=== PATIENT | female | born 1935 | race Caucasian/White ===

== ENCOUNTER 2020-05-13 11:29 | Emergency (ER) | payer MEDICARE, SELFPAY ==
--- NOTE | 2020-05-13 | CT_ITS ---
EXAMINATION: CT HEAD WITHOUT CONTRAST CLINICAL INFORMATION: Dizziness. COMPARISON: None TECHNIQUE: Contiguous axial imaging was performed from the skull base to vertex without intravenous administration of contrast. This CT examination was performed using dose optimization techniques as appropriate, variously including the following: *Automated exposure control *Adjustment of mA and/or kV according to patient size (this includes techniques or standardized protocols for targeted exams where dose is matched to indication/reason for exam; i.e. extremities or head) *Use of iterative reconstruction technique DLP: 538.26 mGy-cm FINDINGS: There is no evidence of acute intracranial hemorrhage or territorial infarction. No abnormal mass effect or midline shift is seen. Cardenas to white matter differentiation is well preserved. No extra-axial fluid collections are identified. The ventricles are normal in size. There is no abnormal attenuation within the brain parenchyma. The osseous structures and soft tissues are normal. The mastoid air cells and visualized portions of the paranasal sinuses are well aerated. IMPRESSION: No acute intracranial pathology.
--- NOTE | 2020-05-13 | ECG_ITS ---
Test Reason : WEAKNESS Blood Pressure : / mmHG Vent. Rate : 094 BPM Atrial Rate : 094 BPM P-R Int : 156 ms QRS Dur : 156 ms QT Int : 426 ms P-R-T Axes : 051 -87 077 degrees QTc Int : 532 ms Atrial-sensed ventricular-paced rhythm Abnormal ECG When compared with ECG of 25-FEB-2020 18:45, Electronic ventricular pacemaker has replaced Sinus rhythm Vent. rate has increased BY 55 BPM Referred By: Danni Perez Electronically Signed By:CRISTELA CHANCE
[2020-05-13 11:48] VITALS: BP 180/102; PULSE 84; RESP 16; TEMP 36.5; BMI 22.4
[2020-05-13 12:19] VITALS: BP 161/82
[2020-05-13 12:51] LABS: Basophils Percent Auto 0.4 % (0-2); Hemoglobin 12.6 g/dl (12.0-16.0); MANUAL DIFF FLAG SCAN; PLT CLUMP 1; SCAN SMEAR FLAG 1
[2020-05-13 12:53] LABS: Eosinophils Absolute Auto 0.1 X10*3/uL (0.0-0.4); Eosinophils Percent Auto 1.3 % (0-4); Imm Gran Abs Auto 0.03 X10*3/uL (0.00-0.03); Imm Gran Pct Auto 0.4 % (0.0-0.4); Lymphocytes Absolute Auto 1.4 X10*3/uL (1.2-4.9); Lymphocytes Percent Auto 18.8 % (20-40); Mean Corpuscular HGB Conc 33.2 g/dl (31.0-35.0); Mean Corpuscular Hemoglobin 28.1 pg (27.0-33.0); Mean Corpuscular Volume 84.8 fL (80-98); Monocytes Absolute Auto 0.4 X10*3/uL (0.1-1.2); Monocytes Percent Auto 5.4 % (2-11); Neutrophils Absolute Auto 5.6 X10*3/uL (2.0-8.3); Neutrophils Percent Auto 73.7 % (45-73); Red Blood Count 4.48 X10*6/uL (4.20-5.50); Red Cell Distribution Width 13.6 % (11.0-16.0)
--- NOTE | 2020-05-13 13:11 | ED.GENADULT ---
HPI - General Adult General Chief complaint: Dizziness Stated complaint: high blood pressure Time Seen by Provider: 05/13/20 12:18 Source: patient Mode of arrival: ambulatory Limitations: no limitations History of Present Illness HPI narrative: 85 y/o female presenting with asymptomatic high blood pressure. She states she recently had a PPM placed here in February. She has had her high BP managed on one medication - it has been changed 2 times since February. She was previously on Norvasc 10 mg however this was stopped due to LE edema. She was then changed to Metoprolol 50 mg however this was changed to Lisinopril 10 mg on 05/02 due to to inadequate control. Patient has been checking and recording her BP BID and brought all of her records with her. Her BP today was 190/100, yestrerday 160's and it appearst that her baseline is 140s/90's. She denies any symptoms of high BP at all including dizziness, chest pain, headache, vision changes, LE edema. Onset (ago): day(s) (1) Severity: moderate Severity scale (1-10): 5 Pain Consistency: intermittent Relieving factors: none Exacerbating factors: none Associated symptoms: denies other symptoms Treatments prior to arrival: none Related Data Home Medications Medication Instructions Recorded Confirmed lisinopril PO 05/13/20 Allergies Allergy/AdvReac Type Severity Reaction Status Date / Time No Known Allergies Allergy Unverified 04/26/20 14:54 [No Known Allergies*] Review of Systems Review of Systems: Constitutional: No Fever, No Chills ENT/Mouth: No sore throat, No Rhinorrhea, No Swallowing Difficulty Eyes: No Eye Pain, No Swelling, No Redness Cardiovascular: No Chest Pain, no SOB, No Orthopnea, no Edema Respiratory: No Cough, No Sputum, No Wheezing Gastrointestinal: No Nausea, No Vomiting, No Diarrhea, No abdominal Pain, No Hematochezia, No Melena Genitourinary: No Dysuria, No Urinary Frequency, No Hematuria Musculoskeletal: No joint pain, No Myalgias Skin: No Skin Lesions, No rash Neuro: No Weakness, No Numbness, No Dizziness, No Headache Psych: No Anxiety/Panic, No Depression Heme/Lymph: No Bruising, No Lymphadenopathy Endocrine: No Polyuria, No Polydipsia All other 10 point ROS are negative. [facility] Past Medical History Attestation statement: The following information was validated with the patient. Medical History H/O cardiac pacemaker Hypertension Social History Social History Advance Directives: No Advance Directives Information Provided: No Physical Exam Vital Signs and I&O and Narrative: Vital Signs and I&O: Vital Signs Temp 97.7 F 05/13/20 11:48 Pulse 65 05/13/20 13:25 Resp 18 05/13/20 13:25 BP 180/87 H 05/13/20 13:25 Pulse Ox 99 05/13/20 13:25 Intake & Output 05/12/20 05/13/20 05/13/20 18:59 06:59 18:59 Weight 52 kg Body Mass Index 22.4 Appearance: Alert. Oriented X3. No acute distress. Eyes: Pupils equal, round and reactive to light. ENT: Pharynx normal. Neck: Normal inspection. Neck supple. CVS: Normal heart rate and rhythm. Pulses normal. Respiratory: No respiratory distress. Breath sounds normal. Abdomen: Soft and nontender. +BS x4 Skin: Skin warm and dry. Normal skin color. Normal skin turgor. No rashes. Extremities: No lower extremity edema. Neuro: Oriented X 3. No motor deficit. No sensory deficit. Course Course Hospital Course: BP on arrival 180/102 - she is asymptomatic and has no complaints. She took her Lisinopril this morning. Will monitor BP for a few more readings while in the ED to see if she will require additional Lisinopril to optimize her BP. This can be managed by her PCP given she is asymptomatic. Basic labs pending. Reevaluation(s) Reevaluation #1: Lab workup unremarkable. Continues to be asymptomatic. BP improved to the 160's without intervention. Will hold off on increasing lisinopril for now. Instructed to follow up with PCP tomorrow. She agrees with plan. Time: 14:34 Medical Decision Making MDM Narrative Medical decision making narrative: Ddx HTN emergency, HTN urgency, malignant HTN, essential HTN, cuff error Lab Data Result diagrams: 05/13/20 12:37 05/13/20 12:37 Labs: Lab Results 05/13/20 05/13/20 05/13/20 Range/Units 12:37 12:37 12:37 WBC 7.7 (4.8-10.8) X10*3/uL RBC 4.48 (4.20-5.50) X10*6/uL Hgb 12.6 (12.0-16.0) g/dl Hct 38.0 (37-47) % MCV 84.8 (80-98) fL MCH 28.1 (27.0-33.0) pg MCHC 33.2 (31.0-35.0) g/dl RDW 13.6 (11.0-16.0) % Plt Count 47 L (160-400) X10*3/uL Immature Gran % (Auto) 0.4 (0.0-0.4) % Neut % (Auto) 73.7 H (45-73) % Lymph % (Auto) 18.8 L (20-40) % [place] % (Auto) 5.4 (2-11) % Eos % (Auto) 1.3 (0-4) % Baso % (Auto) 0.4 (0-2) % Neut # (Auto) 5.6 (2.0-8.3) X10*3/uL Lymph # (Auto) 1.4 (1.2-4.9) X10*3/uL [place] # (Auto) 0.4 (0.1-1.2) X10*3/uL Eos # (Auto) 0.1 (0.0-0.4) X10*3/uL Baso # (Auto) 0.0 (0.0-0.2) X10*3/uL Abs Immat Gran (auto) 0.03 (0.00-0.03) X10*3/uL Absolute Nucleated RBC 0.000 (0.0-0.012) X10*3/uL Nucleated RBC % (auto) 0.0 (0.0-0.2) /100WBC Smear Tech's Comments VERIFIED PT (10.8-13.0) SEC INR (0.9-1.1) APTT (24.1-38.0) SEC Sodium 142 (135-145) mmol/L Potassium 4.3 (3.3-5.1) mmol/l Chloride 106 (96-108) mmol/L Carbon Dioxide 24 (22-29) mmol/L Anion Gap 16 (12-20) BUN 21 H (9-16) mg/dL Creatinine 0.85 (0.5-1.4) mg/dL Estim Creat Clear Calc 36.0 Estimated GFR > 60 Random Glucose 98 (60-115) mg/dL Calcium 10.2 (8.4-10.2) mg/dL Total Bilirubin 0.4 (0.0-1.0) mg/dL AST 26 (5-31) U/L ALT 13 (0-31) U/L Alkaline Phosphatase 103 (39-117) U/L Troponin I High Sens 8.3 (<3.5-17.0) ng/L Total Protein 7.8 (6.5-8.0) g/dL Albumin 4.6 (3.5-5.0) g/dL 05/13/20 Range/Units 13:25 WBC (4.8-10.8) X10*3/uL RBC (4.20-5.50) X10*6/uL Hgb (12.0-16.0) g/dl Hct (37-47) % MCV (80-98) fL MCH (27.0-33.0) pg MCHC (31.0-35.0) g/dl RDW (11.0-16.0) % Plt Count (160-400) X10*3/uL Immature Gran % (Auto) (0.0-0.4) % Neut % (Auto) (45-73) % Lymph % (Auto) (20-40) % [place] % (Auto) (2-11) % Eos % (Auto) (0-4) % Baso % (Auto) (0-2) % Neut # (Auto) (2.0-8.3) X10*3/uL Lymph # (Auto) (1.2-4.9) X10*3/uL [place] # (Auto) (0.1-1.2) X10*3/uL Eos # (Auto) (0.0-0.4) X10*3/uL Baso # (Auto) (0.0-0.2) X10*3/uL Abs Immat Gran (auto) (0.00-0.03) X10*3/uL Absolute Nucleated RBC (0.0-0.012) X10*3/uL Nucleated RBC % (auto) (0.0-0.2) /100WBC Smear Tech's Comments PT 11.8 (10.8-13.0) SEC INR 1.0 (0.9-1.1) APTT 32.5 (24.1-38.0) SEC Sodium (135-145) mmol/L Potassium (3.3-5.1) mmol/l Chloride (96-108) mmol/L Carbon Dioxide (22-29) mmol/L Anion Gap (12-20) BUN (9-16) mg/dL Creatinine (0.5-1.4) mg/dL Estim Creat Clear Calc Estimated GFR Random Glucose (60-115) mg/dL Calcium (8.4-10.2) mg/dL Total Bilirubin (0.0-1.0) mg/dL AST (5-31) U/L ALT (0-31) U/L Alkaline Phosphatase (39-117) U/L Troponin I High Sens (<3.5-17.0) ng/L Total Protein (6.5-8.0) g/dL Albumin (3.5-5.0) g/dL ECG Data Attestation: I personally reviewed and interpreted this ECG as follows: Interpretation: ventricular paced rhythm, HR 94 bpm, normal CO internal Pacemaker function: normal pacer function Critical Care Time Critical Care Time Critical Care Time: No Discharge Plan Discharge Clinical Impression: Poorly-controlled hypertension Patient Disposition: Home, Self-Care Instructions: Hypertension in the Older Adult (ED) Additional Instructions: Follow up with your Primary Care doctor tomorrow. Monitor your blood pressure at similar time each day. Continue to take your Lisinopril 10 mg daily, your doctor can decide if they would like to increase it or now. Because you have no concerning symptoms, there is no urgency in increasing the dose today. Prescriptions: No Action lisinopril 10 mg tablet PO RF: 0
[2020-05-13 13:16] LABS: Troponin-I High Sensitivity 8.3 ng/L (<3.5-17.0)
[2020-05-13 13:18] LABS: White Blood Count 7.7 X10*3/uL (4.8-10.8)
[2020-05-13 13:21] LABS: Alanine Aminotransferase 13 U/L (0-31); Albumin Level 4.6 g/dL (3.5-5.0); Alkaline Phosphatase 103 U/L (39-117); Anion Gap 16 (12-20); Aspartate Amino Transferase 26 U/L (5-31); Bilirubin Total 0.4 mg/dL (0.0-1.0); Blood Urea Nitrogen 21 mg/dL (9-16); Calcium 10.2 mg/dL (8.4-10.2); Carbon Dioxide 24 mmol/L (22-29); Chloride 106 mmol/L (96-108); Estimated Glomerular Filt Rate > 60; Glucose Random 98 mg/dL (60-115); Potassium 4.3 mmol/l (3.3-5.1); Sodium 142 mmol/L (135-145); Total Protein 7.8 g/dL (6.5-8.0)
[2020-05-13 13:22] LABS: Platelet Count 47 X10*3/uL (160-400)
[2020-05-13 13:23] LABS: SLIDE REVIEW VERIFIED
[2020-05-13 13:25] VITALS: BP 180/87; PULSE 65; RESP 18; O2SAT 99
[2020-05-13 13:38] LABS: Prothrombin Time 11.8 SEC (10.8-13.0)
[2020-05-13 13:41] LABS: Partial Thromboplastin Time 32.5 SEC (24.1-38.0)
[2020-05-13 14:00] VITALS: BP 163/83
[2020-05-13 14:36] VITALS: BP 161/79
--- NOTE | 2020-05-22 14:07 | PC.NURSE ---
Addendum entered by Rahul Das 06/01/20 10:32: ANTIBIOTIC WAS SCANNED INTO SYSTEM BUT WERE NOT STARTED UNTIL SECOND BLOOD CULTURE WAS DRAWN AND SENT TO LAB. BLOOD CULTURES DRAWN AT 0941 AND 0958. ANTIBIOTIC STARTED AT 1000. Original Note: ANTIBIOTIC WAS SCANNED INTO SYSTEM BUT WERE NOT STARTED UNTIL SECOND BLOOD CULTURE WAS DRAWN AND SENT TO LAB.
== END 2020-05-13 14:44 | disposition home or self-care (01) ==
PROVIDERS: Physician Assistant; Emergency Provider Emergency Medicine; PCP Family Medicine
DX: I10 Essential (primary) hypertension (principal); Z95.0 Presence of cardiac pacemaker; Z79.899 Other long term (current) drug therapy
CPT/HCPCS: 36415; 70450; 80053; 84484; 85025; 85610; 85730; 93005; 93010; 99284

== ENCOUNTER 2020-05-22 07:11 | Inpatient (IN) | payer MEDICARE, SELFPAY ==
[2020-05-22] VITALS (8 sets, daily range): BP systolic 133–151; BP diastolic 69–91; PULSE 69–110; RESP 18–26; TEMP 36.2–37.3; O2SAT 96–97; BMI 21.5
--- NOTE | 2020-05-22 | NM_ITS ---
EXAMINATION: NUCLEAR MEDICINE TAGGED RED BLOOD CELL STUDY CLINICAL INFORMATION: Active GI bleeding COMPARISON: CT dated 05/22/2020 TECHNIQUE: Images obtained for 60 minutes dynamic over the abdomen pelvis after the administration of 25 mCi technetium 99m labeled red blood cells. FINDINGS: Exam is showing accumulation of the radiotracer in the central pelvis. This appears to have a C shape. Based on the oblique imaging this may well be a posterior structure and therefore this may well correlate to the patient's mid sigmoid. There is a differential here with bladder accumulation however given the appearance on the study findings would suggest a bowel bleed. IMPRESSION: Findings suggest GI bleed in the pelvis. When correlating with the anatomical CT study this may well be in the mid sigmoid region. This critical result was discussed with Dr Butler at 7:57 PM on 05/22/2020 and it was ascertained that the content and urgency of the report was understood at the time of direct communication.
--- NOTE | 2020-05-22 07:19 | ED.GIBLEED ---
HPI - GI Bleed General Chief complaint: GI Bleed Stated complaint: BRIGHT RED BLOOD IN STOOL SINCE LAST NIGHT Time Seen by Provider: 05/22/20 07:19 Source: patient and EMS Mode of arrival: EMS Limitations: no limitations History of Present Illness HPI Narrative: no ASA, no AC therapy, no NSAIDs, brb in toilet but also just coming out in her pants per her, states she slept through it but noted it occured again today, 1 prior episode and had a colonoscopy at [facility] but cannot remember the results MD complaint: gross hematemesis Onset (ago): day(s) (started last night at 7pm) Pain Consistency: intermittent Severity: moderate Relieving factors: none Exacerbating factors: none Context: history of GI bleed Associated symptoms: abdominal pain and nausea Treatments Prior to Arrival: none Related Data Home Medications Medication Instructions Recorded Confirmed lisinopril 10 mg PO DAILY 05/13/20 05/22/20 metoprolol tartrate 50 mg PO BEDTIME 05/22/20 05/22/20 Allergies Allergy/AdvReac Type Severity Reaction Status Date / Time No Known Allergies Allergy Unverified 04/26/20 14:54 [No Known Allergies*] Review of Systems Review of Systems: Constitutional : No Weight loss, No Fever, No Chills ENT/Mouth : No sore throat, No Rhinorrhea Eyes: No Swelling, No Redness Cardiovascular : No Chest Pain, No SOB, NoEdema Respiratory : No Cough, No Sputum, No Wheezing Gastrointestinal : Positive Nausea, no Vomiting, no Diarrhea, positive abdominal Pain, positive Hematochezia, No Melena Genitourinary : No Dysuria, No Urinary Frequency, No Hematuria, No Urgency Musculoskeletal : No joint pain, No Myalgias, No Joint Swelling Skin : No Skin Lesions, No rash Neuro : No Weakness, No Numbness, No Dizziness, No Headache Psych : No Anxiety/Panic, No Depression All other systems reviewed and are negative. [facility] Past Medical History Medical History H/O cardiac pacemaker Hypertension Social History Social History (Updated 05/22/20 @ 07:36 by Rea Orellana DO) Alcohol intake: never Smoking Status: Never smoker Use of substances other than those prescribed or required for medical reasons: No Advance Directives: Yes Advance Directives Information Provided: Yes Advance Directives on File: No Physical Exam Vital Signs: Vital Signs: Vital Signs Temp Pulse Resp BP Pulse Ox 05/22/20 07:18 99.1 F 107 H 20 149/91 H 97 Body Mass Index 21.5 Appearance: Alert. Oriented X3. No acute distress. Eyes: Pupils equal, round and reactive to light. ENT: Pharynx normal. Neck: Normal inspection. Neck supple. CVS: tachycardic heart rate and rhythm. Pulses normal. Respiratory: No respiratory distress. Breath sounds normal. Abdomen: Soft and mild ttp in LLQ Rectal: brb via rectum no clots Skin: Skin warm and dry. Normal skin color. Normal skin turgor. Extremities: No lower extremity edema. No calf ttp Neuro: Oriented X 3. No motor deficit. No sensory deficit. Course Course Course Narrative: 2013 colonoscopy internal hemorrhoids diverticulosis and ischemic colitis which was source of her bleeding per reports Reevaluation(s) Reevaluation #1: will add on zosyn for empiric antibiotics given history of ischemic colitis Time: 08:25 Reevaluation #2: VS stable, H/H stble no further bleeding, + colitis, Dr. Fuad lu, hospitalist to admit Time: 09:59 MDM - GI Bleed MDM Narrative Medical decision making narrative: 85 yo female no AC therapy, no ASA here with brbpr since 7pm has had 4 to 5 bouts has some mild LLQ pain as well reports 1 episode in the past as well but cannot remember what they found, today will obtain labs, place 2 18G IVs in, type and screen, EKG, CT scan with GIB protocol, patient consented for blood transfusion, dispo per results and findings Lab Data Result diagrams: 05/22/20 07:44 05/22/20 07:44 Labs: Lab Results 05/22/20 05/22/20 05/22/20 Range/Units 07:44 07:44 07:44 WBC (4.8-10.8) X10*3/uL RBC (4.20-5.50) X10*6/uL Hgb (12.0-16.0) g/dl Hct (37-47) % MCV (80-98) fL MCH (27.0-33.0) pg MCHC (31.0-35.0) g/dl RDW (11.0-16.0) % Plt Count (160-400) X10*3/uL MPV (9.4-12.3) fL Immature Gran % (Auto) (0.0-0.4) % Neut % (Auto) (45-73) % Lymph % (Auto) (20-40) % Mobile % (Auto) (2-11) % Eos % (Auto) (0-4) % Baso % (Auto) (0-2) % Lymph # (Auto) (1.2-4.9) X10*3/uL Mobile # (Auto) (0.1-1.2) X10*3/uL Eos # (Auto) (0.0-0.4) X10*3/uL Baso # (Auto) (0.0-0.2) X10*3/uL Abs Immat Gran (auto) (0.00-0.03) X10*3/uL Absolute Neuts (auto) (2.0-8.3) X10*3/uL Absolute Nucleated RBC (0.0-0.012) X10*3/uL Nucleated RBC % (auto) (0.0-0.2) /100WBC Smear Tech's Comments PT 12.6 (10.8-13.0) SEC INR 1.1 (0.9-1.1) APTT 26.7 (24.1-38.0) SEC Sodium (135-145) mmol/L Potassium (3.3-5.1) mmol/l Chloride (96-108) mmol/L Carbon Dioxide (22-29) mmol/L Anion Gap (12-20) BUN (9-16) mg/dL Creatinine (0.5-1.4) mg/dL Estim Creat Clear Calc Estimated GFR Random Glucose (60-115) mg/dL Lactic Acid (0.5-2.0) mmol/L Calcium (8.4-10.2) mg/dL Magnesium 1.8 (1.6-2.6) mg/dL Total Bilirubin 0.8 (0.0-1.0) mg/dL Direct Bilirubin 0.2 (0.0-0.5) mg/dL AST 24 (5-31) U/L ALT 15 (0-31) U/L Alkaline Phosphatase 99 (39-117) U/L Troponin I High Sens 13.7 D (<3.5-17.0) ng/L Total Protein 7.0 (6.5-8.0) g/dL Albumin 4.2 (3.5-5.0) g/dL Lipase 6 L (8-78) U/L Stool Occult Blood (NEG) Blood Type Antibody Screen 05/22/20 05/22/20 05/22/20 Range/Units 07:44 07:44 07:44 WBC 18.7 H (4.8-10.8) X10*3/uL RBC 4.46 (4.20-5.50) X10*6/uL Hgb 12.7 (12.0-16.0) g/dl Hct 38.3 (37-47) % MCV 85.9 (80-98) fL MCH 28.5 (27.0-33.0) pg MCHC 33.2 (31.0-35.0) g/dl RDW 13.9 (11.0-16.0) % Plt Count 57 L (160-400) X10*3/uL MPV 12.0 (9.4-12.3) fL Immature Gran % (Auto) 0.4 (0.0-0.4) % Neut % (Auto) 91.8 H (45-73) % Lymph % (Auto) 3.7 L (20-40) % Mobile % (Auto) 3.9 (2-11) % Eos % (Auto) 0.0 (0-4) % Baso % (Auto) 0.2 (0-2) % Lymph # (Auto) 0.7 L (1.2-4.9) X10*3/uL Mobile # (Auto) 0.7 (0.1-1.2) X10*3/uL Eos # (Auto) 0.0 (0.0-0.4) X10*3/uL Baso # (Auto) 0.0 (0.0-0.2) X10*3/uL Abs Immat Gran (auto) 0.08 H (0.00-0.03) X10*3/uL Absolute Neuts (auto) 17.1 H (2.0-8.3) X10*3/uL Absolute Nucleated RBC 0.000 (0.0-0.012) X10*3/uL Nucleated RBC % (auto) 0.0 (0.0-0.2) /100WBC Smear Tech's Comments VERIFIED PT (10.8-13.0) SEC INR (0.9-1.1) APTT (24.1-38.0) SEC Sodium 141 (135-145) mmol/L Potassium 4.1 (3.3-5.1) mmol/l Chloride 108 (96-108) mmol/L Carbon Dioxide 23 (22-29) mmol/L Anion Gap 14 (12-20) BUN 24 H (9-16) mg/dL Creatinine 0.95 (0.5-1.4) mg/dL Estim Creat Clear Calc 32.2 Estimated GFR 56 Random Glucose 156 H D (60-115) mg/dL Lactic Acid (0.5-2.0) mmol/L Calcium 9.6 (8.4-10.2) mg/dL Magnesium (1.6-2.6) mg/dL Total Bilirubin (0.0-1.0) mg/dL Direct Bilirubin (0.0-0.5) mg/dL AST (5-31) U/L ALT (0-31) U/L Alkaline Phosphatase (39-117) U/L Troponin I High Sens (<3.5-17.0) ng/L Total Protein (6.5-8.0) g/dL Albumin (3.5-5.0) g/dL Lipase (8-78) U/L Stool Occult Blood POS (NEG) Blood Type Antibody Screen 05/22/20 05/22/20 05/22/20 Range/Units 08:14 08:14 09:20 WBC (4.8-10.8) X10*3/uL RBC (4.20-5.50) X10*6/uL Hgb (12.0-16.0) g/dl Hct (37-47) % MCV (80-98) fL MCH (27.0-33.0) pg MCHC (31.0-35.0) g/dl RDW (11.0-16.0) % Plt Count (160-400) X10*3/uL MPV (9.4-12.3) fL Immature Gran % (Auto) (0.0-0.4) % Neut % (Auto) (45-73) % Lymph % (Auto) (20-40) % Mobile % (Auto) (2-11) % Eos % (Auto) (0-4) % Baso % (Auto) (0-2) % Lymph # (Auto) (1.2-4.9) X10*3/uL Mobile # (Auto) (0.1-1.2) X10*3/uL Eos # (Auto) (0.0-0.4) X10*3/uL Baso # (Auto) (0.0-0.2) X10*3/uL Abs Immat Gran (auto) (0.00-0.03) X10*3/uL Absolute Neuts (auto) (2.0-8.3) X10*3/uL Absolute Nucleated RBC (0.0-0.012) X10*3/uL Nucleated RBC % (auto) (0.0-0.2) /100WBC Smear Tech's Comments PT (10.8-13.0) SEC INR (0.9-1.1) APTT (24.1-38.0) SEC Sodium (135-145) mmol/L Potassium (3.3-5.1) mmol/l Chloride (96-108) mmol/L Carbon Dioxide (22-29) mmol/L Anion Gap (12-20) BUN (9-16) mg/dL Creatinine (0.5-1.4) mg/dL Estim Creat Clear Calc Estimated GFR Random Glucose (60-115) mg/dL Lactic Acid 2.1 H* (0.5-2.0) mmol/L Calcium (8.4-10.2) mg/dL Magnesium (1.6-2.6) mg/dL Total Bilirubin (0.0-1.0) mg/dL Direct Bilirubin (0.0-0.5) mg/dL AST (5-31) U/L ALT (0-31) U/L Alkaline Phosphatase (39-117) U/L Troponin I High Sens (<3.5-17.0) ng/L Total Protein (6.5-8.0) g/dL Albumin (3.5-5.0) g/dL Lipase (8-78) U/L Stool Occult Blood (NEG) Blood Type Cancelled AB Positive Antibody Screen Cancelled ECG Data Attestation: I personally reviewed and interpreted this ECG as follows: ECG interpretation date: 05/22/20 ECG interpretation time: 07:38 Interpretation: Rate: 108 Rhythm: atrial sensed ventricular paced continuous [place]: left Normal P waves. Normal GARY. wide QRS complex. ST T wave : nonspecific qTC: prolonged prior studies: no acute ischemia The study has been interpreted contemporaneously by me. . Critical Care Time Critical Care Time Critical Care Time: Yes Total Critical Care Time: 30 Attestation: consult, records from [facility] requested, 2 large bore IVs, type and screen I personally attest to this time spent taking care of the patient Discharge Plan Discharge Clinical Impression: Lower gastrointestinal hemorrhage, Colitis Patient Disposition: Admitted As Inpatient
--- NOTE | 2020-05-22 07:24 | CT_ITS ---
EXAMINATION: CT ABDOMEN AND PELVIS WITH CONTRAST CLINICAL INFORMATION: GI bleed COMPARISON: None TECHNIQUE: Multidetector volumetric images were obtained from the superior aspect of the liver through the pubic symphysis following administration 85 mL of Omnipaque 350 intravenous contrast. Sagittal and coronal reformatted images were obtained on the technologist's workstation. Oral contrast: No This CT examination was performed using dose optimization techniques as appropriate, variously including the following: *Automated exposure control *Adjustment of mA and/or kV according to patient size (this includes techniques or standardized protocols for targeted exams where dose is matched to indication/reason for exam; i.e. extremities or head) *Use of iterative reconstruction technique DLP: 665 mGy-cm FINDINGS: LUNG BASES: There is a 5 mm calcified left lower lobe nodule. There is a scarring or subsegmental atelectasis at the lung bases. LIVER, GALLBLADDER, AND BILIARY TREE: The liver is normal in size and shape. There are several small low-attenuation liver lesions probably representing cysts. The largest measures 1.3 cm in the right lobe axial image 19 series 5. The gallbladder is unremarkable. There are no gallstones. There is no biliary duct dilatation. PANCREAS: There is fatty infiltration of the pancreas. There is a 7 mm cyst is a exophytic to the inferior neck of the pancreas axial image 24 series 5. SPLEEN: Unremarkable. ADRENAL GLANDS: Unremarkable. KIDNEYS AND URETERS: There are bilateral renal cortical and peripelvic cysts. The kidneys are otherwise unremarkable. BLADDER: Unremarkable. GASTROINTESTINAL TRACT: There is diverticulosis of the colon. There is wall thickening and edema of the distal transverse, left and sigmoid colon. There is stranding of the adjacent fat. There is mucosal enhancement seen involving the distal transverse colon and the proximal sigmoid colon. No evidence of active bleeding is seen. CT appearance is suggestive of colitis. There are prominent adjacent small vessels/vasa recta. The rectum is not distended and filled with fluid. The appendix is not identified. There is an esophageal hernia. ABDOMINAL WALL: There is an umbilical hernia containing fat. LYMPH NODES: No enlarged lymph nodes are seen. There is no ascites. VASCULAR: There is evidence of atherosclerotic disease. No aneurysm is seen. The SMA and LETY are patent. The SMV and IMV are patent. PELVIC VISCERA: The uterus appears to have been removed. No pelvic mass is seen. OSSEOUS STRUCTURES: There are degenerative changes of the spine. IMPRESSION: Colitis of the distal transverse, left and sigmoid colon. No evidence of active GI bleeding seen. Diverticulosis. Esophageal hernia. Liver and bilateral renal cysts. Probable small cyst and/or exophytic to the inferior neck of the pancreas.
--- NOTE | 2020-05-22 07:25 | ECG_ITS ---
Test Reason : GI BLEED Blood Pressure : / mmHG Vent. Rate : 108 BPM Atrial Rate : 108 BPM P-R Int : 128 ms QRS Dur : 148 ms QT Int : 404 ms P-R-T Axes : 047 268 072 degrees QTc Int : 541 ms Atrial-sensed ventricular-paced rhythm Abnormal ECG When compared with ECG of 13-MAY-2020 12:29, Vent. rate has increased BY 14 BPM Referred By: Rea Orellana Electronically Signed By:PAPO SEVILLA MD
[2020-05-22 07:55] LABS: Basophils Percent Auto 0.2 % (0-2); Hematocrit 38.3 % (37-47); Imm Gran Abs Auto 0.08 X10*3/uL (0.00-0.03); Imm Gran Pct Auto 0.4 % (0.0-0.4); Lymphocytes Absolute Auto 0.7 X10*3/uL (1.2-4.9); Lymphocytes Percent Auto 3.7 % (20-40); MANUAL DIFF FLAG SCAN; Mean Corpuscular HGB Conc 33.2 g/dl (31.0-35.0); Mean Corpuscular Hemoglobin 28.5 pg (27.0-33.0); Mean Corpuscular Volume 85.9 fL (80-98); Monocytes Absolute Auto 0.7 X10*3/uL (0.1-1.2); Monocytes Percent Auto 3.9 % (2-11); Neutrophils Absolute Auto 17.1 X10*3/uL (2.0-8.3); Neutrophils Percent Auto 91.8 % (45-73); Red Blood Count 4.46 X10*6/uL (4.20-5.50); Red Cell Distribution Width 13.9 % (11.0-16.0); SCAN SMEAR FLAG 1; White Blood Count 18.7 X10*3/uL (4.8-10.8)
[2020-05-22 07:57] LABS: OBS Int Ctl Valid YES; OBS1 POS (NEG)
[2020-05-22 08:09] LABS: Hemoglobin 12.7 g/dl (12.0-16.0); Platelet Count 57 X10*3/uL (160-400)
[2020-05-22 08:18] LABS: Anion Gap 14 (12-20); Blood Urea Nitrogen 24 mg/dL (9-16); Calcium 9.6 mg/dL (8.4-10.2); Carbon Dioxide 23 mmol/L (22-29); Chloride 108 mmol/L (96-108); Creatinine Clr Calc Pharmacy 32.2; Estimated Glomerular Filt Rate 56; Glucose Random 156 mg/dL (60-115); Potassium 4.1 mmol/l (3.3-5.1); Sodium 141 mmol/L (135-145)
[2020-05-22 08:20] LABS: SLIDE REVIEW VERIFIED
[2020-05-22 08:22] LABS: Alanine Aminotransferase 15 U/L (0-31); Albumin Level 4.2 g/dL (3.5-5.0); Alkaline Phosphatase 99 U/L (39-117); Aspartate Amino Transferase 24 U/L (5-31); Bilirubin Direct 0.2 mg/dL (0.0-0.5); Bilirubin Total 0.8 mg/dL (0.0-1.0); Lipase 6 U/L (8-78); Magnesium 1.8 mg/dL (1.6-2.6)
[2020-05-22 08:23] LABS: INTERNATIONAL NORM RATIO 1.1 (0.9-1.1); Prothrombin Time 12.6 SEC (10.8-13.0)
[2020-05-22 08:26] LABS: Partial Thromboplastin Time 26.7 SEC (24.1-38.0); Troponin-I High Sensitivity 13.7 ng/L (<3.5-17.0)
[2020-05-22 08:41] LABS: Lactic Acid 2.1 mmol/L (0.5-2.0)
[2020-05-22] MEDS: 0.9 % Sodium Chloride 500 ML 1000 ML IV (08:48)
[2020-05-22] MEDS: ondansetron HCL 4 MG/2 ML VIAL IVPUSH (08:49)
[2020-05-22] MEDS: Piperacillin Sodium/Tazobactam 3.375 GM in 0.9 % Sodium Chloride 50 ML IV ×2 (08:49→20:54)
[2020-05-22] MEDS: iohexoL 350 MG/ML 100 ML INFUS..BTL IV (09:25)
[2020-05-22 10:17] LABS: Reflex Lactate? Lactic Acid Added
--- NOTE | 2020-05-22 12:14 | HP_ITS ---
DATE OF SERVICE: 05/22/2020 CHIEF COMPLAINT: Rectal bleeding. HISTORY OF PRESENT ILLNESS: 85-year-old woman, presenting from home with multiple episodes of bright red blood per rectum. She reported that yesterday evening, she was in her bathroom and she was nauseous and had lower abdominal pain. She laid down on her bathroom floor and tried to wet her face with water. She went to bed, but got up 4 times during the night, having abdominal cramping and episodes of bright red blood. 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 She denied any fever, chills, or vomiting. No recent travel. No recent illness. In the ER, her H and H was noted to be stable at 12.7 and 38.3. White blood cell count 18.7, platelet count 57, which is a drop from February of 2020, when it was 118. Lactic acid was elevated at 2.1, BUN 24. Stool occult was positive. She had an abdominal and pelvic CT, which showed colitis of the distal transverse left and sigmoid colon with no evidence of active GI bleed. She did have an episode of bleeding, bright red blood per rectum while in the ER. She was given a liter of IV fluid, a dose of Zosyn and Zofran while in the ER. She will be admitted for further management and treatment of acute GI bleed. PAST MEDICAL HISTORY: 1. Colitis. 2. Diverticulosis. 3. Esophageal hernia. 4. Liver and renal cysts. 5. Hypertension. PAST SURGICAL HISTORY: 1. Pacemaker placement. 2. Colonoscopy. FAMILY HISTORY: Denies any cardiac disease. SOCIAL HISTORY: Lives alone. Denies any alcohol, tobacco, or illicit drug use. She is fairly independent. ALLERGIES: NO KNOWN ALLERGIES. MEDICATIONS: 1. Lisinopril 10 mg p.o. daily. 2. Metoprolol tartrate 50 mg p.o. at bedtime. REVIEW OF SYSTEMS: CONSTITUTIONAL: Denies recent fever, chills, or decrease in appetite. RESPIRATORY: Denies any shortness of breath, cough, or sputum production. CARDIOVASCULAR: Denies any chest pain, orthopnea, PND, or edema. GASTROINTESTINAL: See HPI. GENITOURINARY: Denies any dysuria, frequency, or hematuria. MUSCULOSKELETAL: Denies any joint pain or swelling. NEUROPSYCH: Denies any weakness or seizures. All other systems are reviewed and are negative. PHYSICAL EXAMINATION: CONSTITUTIONAL: Resting in bed, appearing in no acute distress. VITAL SIGNS: 99.1, 103, 26, 133/87, 97% on room air. SKIN: Intact without rash or open sores. HEENT: Head is normocephalic, atraumatic. Eyes, pupils are PERRLA. Sclerae anicteric. Mouth and throat: Mucous membranes are intact and moist. NECK: Supple. No lymphadenopathy. No JVD noted. CHEST: Clear to auscultation without wheezes, rhonchi, or rales. HEART: Regular rate and rhythm. Clear S1, S2. No murmurs, rubs, or gallops. ABDOMEN: Positive bowel sounds. Mildly tender to the lower abdomen. No hepatomegaly or splenomegaly noted. NEURO: The patient is alert and oriented x3. Cranial nerves II through XII are grossly intact without focal deficits. LABORATORY DATA: WBC is 18.7, hemoglobin 12.7, hematocrit 38.3, platelets 57. Sodium is 141, potassium is 4.1, chloride is 108, bicarb is 23, BUN is 24, creatinine is 0.95. Glucose is 156. Lactic acid is 2.1. Troponin is 13.7. Lipase is 6. ASSESSMENT AND PLAN: 85-year-old woman, who is being admitted with acute GI bleed, possibly related to ischemic versus infectious colitis. 1. Severe sepsis. Leukocytosis, tachycardia, lactic acidosis. Follow blood cultures. 2. Colitis. Ischemic versus infectious. We will continue IV antibiotics, clear liquid diet for now, GI consultation, PPI, follow H and H closely. If significant drop noted, may require blood transfusion. Type and screen already done. 3. Hypertension. Stable blood pressure. We will hold lisinopril due to GI bleeding to avoid hypotension. 4. Deep vein thrombosis prophylaxis with early ambulation, no chemical anticoagulation due to GI bleed. 5. Case discussed with Dr. Pelayo 6. Full code. KOLTON Song MD JR/ARTURO / [id number] KEVIN
--- NOTE | 2020-05-22 14:13 | PM.EVENT ---
Event Note Event Note: I saw and examined the patient and participated in the ziegler portion of the E/M service. I agree with the history and exam as documented by [facility]. Patient presentes with abdominal cramps and gib bleed, H/H seems ok so far. Hemodynamically stable. WBC elevated but no fever. Exam: abdominal exam is bening. Will admit for work up, GI consult, empiric Abx. If continues to have active bleed, we will get a bleeding Scan. Otherwise, I agree with assessment and plan as outlined in the H and P.
[2020-05-22 15:42] LABS: Hematocrit 37.6 % (37-47); Hemoglobin 12.5 g/dl (12.0-16.0)
[2020-05-22 16:09] LABS: ~Lactic Acid-LAB USE ONLY 2.2 mmol/L (0.5-2.0)
[2020-05-22] MEDS: 0.9 % Sodium Chloride 1,000 ML 75 ML IVCONT (17:02)
[2020-05-22] MEDS: 0.9 % Sodium Chloride Flush 3 ML SYRINGE IVFLUSH ×2 (17:02→21:01)
--- NOTE | 2020-05-22 17:20 | CONS_ITS ---
DATE OF SERVICE: 05/22/2020 REFERRING PHYSICIAN: Madina Smith MD REASON FOR CONSULTATION: Colitis and bleeding. HISTORY OF PRESENT ILLNESS: The patient is an 85-year-old woman, who was admitted to the hospital on May 22 after presenting to the emergency room with abdominal pain and bright red blood per rectum. She states she was well until after supper last night when she developed nausea and abdominal pain, she was unsure if she were going to have a bowel movement or vomit and she laid down on the floor. She was able to get to the toilet and had diarrhea, which became bloody. This was associated with abdominal cramping, which was bilateral over both lower quadrants and she had multiple episodes of rectal bleeding with red blood in cramps. She felt hot and cold, did not have a documented fever. She denies any prior history of rectal bleeding. She previously underwent colonoscopy in January of 2008 for colon cancer screening, which showed sigmoid diverticulosis and a tortuous sigmoid, but no colitis or polyps. We reviewed this today. She was evaluated in the emergency department with laboratory studies documenting a hematocrit of 37.6, down slightly from 38. In May of 2020, she was evaluated with CT scanning, which is reviewed. This is interpreted as showing colitis involving the distal transverse and left and sigmoid colon. She was given antibiotics and admitted to the hospital. She denies any recent unusual travel, ill contacts, or food ingestions. PAST MEDICAL HISTORY: 1. Hypertension. 2. Diverticular disease. 3. Pacemaker placement. CURRENT MEDICATIONS: Her current medication list is reviewed in the chart. ALLERGIES: THERE ARE NONE REPORTED. FAMILY HISTORY: This is reviewed with the patient and is noncontributory. SOCIAL HISTORY: There is no current tobacco, alcohol, or substance abuse. REVIEW OF SYSTEMS: SKIN: No pruritus. HEENT: Negative. CARDIOPULMONARY: No shortness of breath or chest pain. GASTROINTESTINAL: As above. GENITOURINARY: Negative. NEUROPSYCHIATRIC: Negative. PHYSICAL EXAMINATION: GENERAL: Reveals a pleasant, well-appearing female, lying in bed. VITAL SIGNS: Reviewed in the electronic medical record and are stable. SKIN: Anicteric. HEENT: Shows no scleral icterus. NECK: Without lymphadenopathy or thyromegaly. LUNGS: Clear. HEART: Regular rate and rhythm. S1, S2. No murmur. ABDOMEN: Soft without focal masses or tenderness. Bowel sounds are present. No organomegaly is noted. EXTREMITIES: Without edema. LABORATORY DATA: Laboratory data and CT scan results are reviewed. IMPRESSION: Colitis. Her presentation appears consistent with an acute colitis, likely ischemic. Based on her CT results, infectious is a possibility and I would recommend obtaining stool specimens to rule out any treatable infectious colitis. I would recommend monitoring her hematocrit and following her clinically. If she does have persistent bleeding, I would consider further evaluation with bleeding scan and/or angiography. At this time, she appears quite stable. This was discussed with the patient and her daughter. Thanks for asking me to see her. I will follow her in the hospital with you. MD TRAVIS Chavarria/ARTURO / [id number]
[2020-05-22 17:27] LABS: Reflex Lactate? 2 Y
[2020-05-22] MEDS: Pantoprazole Sodium 40 MG/10 ML VIAL IVPUSH (20:53)
[2020-05-22] MEDS: Metoprolol Tartrate 50 MG TABLET PO (20:54)
[2020-05-22 21:54] LABS: Hematocrit 32.5 % (37-47); Hemoglobin 10.7 g/dl (12.0-16.0)
[2020-05-22 22:19] LABS: ~Lactic Acid-LAB USE ONLY 4.7 mmol/L (0.5-2.0)
--- NOTE | 2020-05-22 22:49 | MHC.PIE ---
P: H&H dropped 12.7 & 38.3 to 10.7 & 32.5. Also Lactic up to 4.7. 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 I: Dr Denney made aware of updated labs & told about BM's. Dr Denney spoke to GI - plan to transfer out for active bleed.
[2020-05-23] MEDS: Piperacillin Sodium/Tazobactam 3.375 GM in 0.9 % Sodium Chloride 50 ML IV (02:03)
--- NOTE | 2020-05-23 12:07 | P.DS_ITS ---
DS: Providers Provider Date of admission: 05/22/20 10:56 Date of dischar05/23/20 Primary care physician: Zana Gracia MD Consults: 05/22/20 14:06 Consult to Physician Routine Consulting Provider: [facility] [place] [facility] Reason for consultation: GI BLEED Has provider been notified: No 05/22/20 14:43 Consult to Gastroenterology Routine Consulting Provider: Xavier Haider Reason for consultation: gi bleed Has provider been notified: No DS: Diagnosis Discharge Diagnosis (1) Lower gastrointestinal hemorrhage: Status: Acute (2) Colitis: Status: Acute (3) Acute blood loss anemia: Status: Acute DS: Medications Discharge Medications Home Medications: Previous Rx's Medication Instructions Recorded lisinopril 10 mg tablet 10 mg PO DAILY #90 tab 07/16/20 metoprolol tartrate 50 mg tablet 50 mg PO BID #180 tab 07/16/20 DS: Summary Hospital Course Hospital Course: Patient presented with hematochezia and found to have colitis and active bleeding. She underwen tagged RBC scn and was noted to have active bleed and there was no IR patent prosecution paralegal to due embolization and therefore patient was transfered to [facility] for IR embolization. --this was done after hours. This is a late entry note for 05/23/20 Time Spent with Patient Time attestation: Total time spent providing and/or coordinating discharge services: Discharge coordination time: Greater than 30 minutes Physical Exam Vital Signs: Vital Signs: Last Vital Signs Temp 97.9 F 05/22/20 23:14 Pulse 69 05/22/20 23:14 Resp 18 05/22/20 23:14 BP 145/71 H 05/22/20 23:14 Pulse Ox 96 05/22/20 23:14 Body Mass Index 21.5 Defereed DS: Data Data Completed and Pending Labs on day of discharge: 05/22/20 NM GI bleeding Stat 05/22/20 07:24 CT abdomen pelvis w con Stat Consult Rx Perform Med Rec 1 each MISCELLANE ONCE PRN ondansetron HCL [Zofran] 4 mg IVPUSH ONCE ONE 05/22/20 07:25 ECG 12 lead EKG Stat EKG Documentation DIRECTED 05/22/20 07:30 0.9 % Sodium Chloride [Ns] 500 ml IV 1,000 mls/hr 05/22/20 07:44 Basic Metabolic Panel Stat Complete Blood Count Auto Diff Stat Lipase Stat Liver Panel Stat Magnesium Stat OBSX1 Stat Partial Thromboplastin Time Stat Prothrombin Time INR Stat SLIDE REVIEW Stat Troponin-I High Sensitivity Stat 05/22/20 08:14 Lactic Acid Stat 05/22/20 08:21 Piperacillin Sodium/Tazobactam [Zosyn] 3.375 gm 0.9 % Sodium Chloride [Ns] 50 ml IV ONCE 05/22/20 08:44 Piperacillin Sodium/Tazobactam [Zosyn] 3.375 gm IV .STK-MED ONE 05/22/20 09:20 Type and Screen Stat 05/22/20 09:24 iohexoL 350 MG/ML [Omnipaque 350 MG/ML] 100 ml IV ONCE ONE 05/22/20 09:58 Blood Culture X2 [BC] Stat 05/22/20 10:52 Code Status Routine Transfer Order Routine 05/22/20 14:06 0.9 % Sodium Chloride [Ns] 1,000 ml IVCONT 75 mls/hr Acetaminophen [Tylenol] 650 mg PO Q6H PRN ondansetron HCL [Zofran] 4 mg IVPUSH Q8H PRN 05/22/20 14:06 Ambulate QSHIFT WHILE AWAKE Cont. Telemetry w/Vital Sign limit Q4HR IV insert/maintain Q4HR Intake and Output QSHIFTE Pulse Oximetry Q4HR Vital Signs Q4HR 05/22/20 15:16 Hemoglobin and Hematocrit Stat ~Lactic Acid-LAB USE ONLY Stat 05/22/20 16:00 0.9 % Sodium Chloride Flush [NS Flush] 3 ml IVFLUSH QSHIFT Piperacillin Sodium/Tazobactam [Zosyn] 3.375 gm 0.9 % Sodium Chloride [Ns] 50 ml IV Q8H 05/22/20 16:30 Pantoprazole Sodium [Protonix] 40 mg IVPUSH BID@0630,1630 05/22/20 17:38 Heparin Sodium,Porcine 1,000 unit IV .STK-MED ONE 05/22/20 20:21 Piperacillin Sodium/Tazobactam [Zosyn] 3.375 gm IV .STK-MED ONE 05/22/20 21:00 Metoprolol Tartrate [Lopressor] 50 mg PO BEDTIME 05/22/20 21:48 Hemoglobin and Hematocrit Stat ~Lactic Acid-LAB USE ONLY Stat 05/23/20 01:59 Piperacillin Sodium/Tazobactam [Zosyn] 3.375 gm IV .STK-MED ONE 05/23/20 03:00 Piperacillin Sodium/Tazobactam [Zosyn] 3.375 gm 0.9 % Sodium Chloride [Ns] 50 ml IV Q8H Laboratory Last Values WBC 18.7 X10*3/uL (4.8-10.8) H 05/22/20 07:44 RBC 4.46 X10*6/uL (4.20-5.50) 05/22/20 07:44 Hgb 10.7 g/dl (12.0-16.0) L 05/22/20 21:48 Hct 32.5 % (37-47) L 05/22/20 21:48 MCV 85.9 fL (80-98) 05/22/20 07:44 MCH 28.5 pg (27.0-33.0) 05/22/20 07:44 MCHC 33.2 g/dl (31.0-35.0) 05/22/20 07:44 RDW 13.9 % (11.0-16.0) 05/22/20 07:44 Plt Count 57 X10*3/uL (160-400) L 05/22/20 07:44 MPV 12.0 fL (9.4-12.3) 05/22/20 07:44 Immature Gran % (Auto) 0.4 % (0.0-0.4) 05/22/20 07:44 Neut % (Auto) 91.8 % (45-73) H 05/22/20 07:44 Lymph % (Auto) 3.7 % (20-40) L 05/22/20 07:44 [place] % (Auto) 3.9 % (2-11) 05/22/20 07:44 Eos % (Auto) 0.0 % (0-4) 05/22/20 07:44 Baso % (Auto) 0.2 % (0-2) 05/22/20 07:44 Lymph # (Auto) 0.7 X10*3/uL (1.2-4.9) L 05/22/20 07:44 [place] # (Auto) 0.7 X10*3/uL (0.1-1.2) 05/22/20 07:44 Eos # (Auto) 0.0 X10*3/uL (0.0-0.4) 05/22/20 07:44 Baso # (Auto) 0.0 X10*3/uL (0.0-0.2) 05/22/20 07:44 Abs Immat Gran (auto) 0.08 X10*3/uL (0.00-0.03) H 05/22/20 07:44 Absolute Neuts (auto) 17.1 X10*3/uL (2.0-8.3) H 05/22/20 07:44 Absolute Nucleated RBC 0.000 X10*3/uL (0.0-0.012) 05/22/20 07:44 Nucleated RBC % (auto) 0.0 /100WBC (0.0-0.2) 05/22/20 07:44 Smear Tech's Comments VERIFIED 05/22/20 07:44 PT 12.6 SEC (10.8-13.0) 05/22/20 07:44 INR 1.1 (0.9-1.1) 05/22/20 07:44 APTT 26.7 SEC (24.1-38.0) 05/22/20 07:44 Sodium 141 mmol/L (135-145) 05/22/20 07:44 Potassium 4.1 mmol/l (3.3-5.1) 05/22/20 07:44 Chloride 108 mmol/L (96-108) 05/22/20 07:44 Carbon Dioxide 23 mmol/L (22-29) 05/22/20 07:44 Anion Gap 14 (12-20) 05/22/20 07:44 BUN 24 mg/dL (9-16) H 05/22/20 07:44 Creatinine 0.95 mg/dL (0.5-1.4) 05/22/20 07:44 Estim Creat Clear Calc 32.2 05/22/20 07:44 Estimated GFR 56 05/22/20 07:44 Random Glucose 156 mg/dL (60-115) H D 05/22/20 07:44 Lactic Acid 2.1 mmol/L (0.5-2.0) H* 05/22/20 08:14 Lactic Acid Fup @ 2Hr 2.2 mmol/L (0.5-2.0) H* 05/22/20 15:16 Lactic Acid Fup @ 4Hr 4.7 mmol/L (0.5-2.0) H* 05/22/20 21:48 Calcium 9.6 mg/dL (8.4-10.2) 05/22/20 07:44 Magnesium 1.8 mg/dL (1.6-2.6) 05/22/20 07:44 Total Bilirubin 0.8 mg/dL (0.0-1.0) 05/22/20 07:44 Direct Bilirubin 0.2 mg/dL (0.0-0.5) 05/22/20 07:44 AST 24 U/L (5-31) 05/22/20 07:44 ALT 15 U/L (0-31) 05/22/20 07:44 Alkaline Phosphatase 99 U/L (39-117) 05/22/20 07:44 Troponin I High Sens 13.7 ng/L (<3.5-17.0) D 05/22/20 07:44 Total Protein 7.0 g/dL (6.5-8.0) 05/22/20 07:44 Albumin 4.2 g/dL (3.5-5.0) 05/22/20 07:44 Lipase 6 U/L (8-78) L 05/22/20 07:44 Stool Occult Blood POS (NEG) 05/22/20 07:44 Blood Type AB Positive 05/22/20 09:20 Antibody Screen NEGATIVE 05/22/20 09:20 Discharge Plan Discharge Anticipated Discharge Date/Time: 05/23/20 12:03 Patient Disposition: Xfer [facility] Referrals: Zana Gracia MD [Primary Care Provider] - Discharge Medications: No Action metoprolol tartrate 50 mg tablet 50 mg PO BID Qty: 180 RF: 4 lisinopril 10 mg tablet 10 mg PO DAILY Qty: 90 RF: 4 Discharge Orders: Discharge Order (Routine); Ordered 05/23/20 Ordered By: Ebony Denney Activity on Discharge: As tolerated Discharge Date/Time: 05/23/20 03:00 Visit Report Forms: Patient Portal Discharge page Care Plan Goals: Plan to discharge to [facility] for further management Health Concerns: GI bleed Plan of Treatment: Treatment of acute GI bleed
== END 2020-05-23 03:00 | disposition short-term general hospital (02) | DRG 395 ==
LOC: HO.ED 10:32 → HO.IMC 12:27
PROVIDERS: Nurse Practitioner Acute Care; Admitting Provider Student in an Organized Health Care Education/Training Program; Emergency Provider Emergency Medicine; PCP Family Medicine; Visit Provider Internal Medicine
DX: K55.039 Acute (reversible) ischemia of large intestine, extent unspecified (principal); I10 Essential (primary) hypertension; Z95.0 Presence of cardiac pacemaker; Z79.899 Other long term (current) drug therapy
CPT/HCPCS: 36415; 74177; 78278; 80048; 80076; 82272; 83605; 83690; 83735; 84484; 85014; 85018; 85025; 85610; 85730; 86850; 86900; 86901; 87040; 93005; 96365; 96375; 99284; 99291; A9560; J2405

== ENCOUNTER → 2020-07-16 13:39 | Outpatient (BNVA) | payer MEDICARE, SELFPAY | PROVIDERS: PCP Family Medicine; Referring Provider Family Medicine; Visit Provider Internal Medicine | DX: I10 Essential (primary) hypertension (principal); I45.5 Other specified heart block; Z45.018 Encounter for adjustment and management of other part of cardiac pacemaker | CPT/HCPCS: 99212 ==

== ENCOUNTER 2020-08-15 12:59 | Outpatient (REF) | payer MEDICARE, SELFPAY ==
[2020-08-15 14:09] LABS: Hematocrit 33.1 % (37-47); Mean Corpuscular HGB Conc 33.2 g/dl (31.0-35.0); Mean Corpuscular Volume 84.2 fL (80-98); Mean Platelet Volume 10.8 fL (9.4-12.3); Platelet Count 321 X10*3/uL (160-400); Red Blood Count 3.93 X10*6/uL (4.20-5.50); Red Cell Distribution Width 13.6 % (11.0-16.0); White Blood Count 28.3 X10*3/uL (4.8-10.8)
[2020-08-15 14:33] LABS: Anion Gap 17 (12-20); Blood Urea Nitrogen 16 mg/dL (9-16); Carbon Dioxide 25 mmol/L (22-29); Chloride 101 mmol/L (96-108); Estimated Glomerular Filt Rate 54; Magnesium 2.2 mg/dL (1.6-2.6); Sodium 140 mmol/L (135-145)
[2020-08-15 15:09] LABS: Band Neutrophils Percent 2 % (3-5); Eosinophils Absolute Manual 0.6 X10*3/UL (0.0-0.8); Eosinophils Percent Manual 2 % (0-4); Lymphocytes Absolute Manual 2.5 X10*3/uL (0.6-4.8); Lymphocytes Percent Manual 9 % (20-40); Monocytes Absolute Manual 0.6 X10*3/uL (0.0-1.2); Monocytes Percent Manual 2 % (2-11); Neutrophils Absolute Manual 24.6 X10*3/uL (2.2-7.9); Neutrophils Percent Manual 85 % (45-73)
[2020-08-15 15:10] LABS: Platelet Estimate NORMAL (NORMAL); Schistocytes 1+
[2020-08-15 15:12] LABS: Microcytosis 1+; Ovalocytes 1+; RBC Morphology NOTED
[2020-08-15 15:13] LABS: Platelet Morphology Comment NORM; Polychromasia 1+
[2020-08-15 16:05] LABS: Erythrocyte Sedimentation Rate 21 MM/HR (0-20)
== END 2020-08-15 13:00 | disposition home or self-care (01) ==
LOC: HO.LAB 12:59
PROVIDERS: PCP Family Medicine; Visit Provider Family Medicine
DX: R19.7 Diarrhea, unspecified (principal); D64.9 Anemia, unspecified; R63.4 Abnormal weight loss
CPT/HCPCS: 36415; 80051; 82565; 83735; 84520; 85007; 85027; 85652

== ENCOUNTER 2020-09-12 12:21 | Outpatient (REF) | payer MEDICARE, SELFPAY ==
--- NOTE | 2020-09-12 | MM_ITS ---
EXAMINATION: MM SCREENING DIGITAL BREAST TOMOSYNTHESIS, BILATERAL CLINICAL INFORMATION: Screening. Asymptomatic. The lifetime risk of breast cancer based on the Tyrer-Cuzick Model is 0.4%. COMPARISON: Mammography: November 20, 2018 and studies dating back to July 28, 2012 TECHNIQUE: Digital breast tomosynthesis is performed in both the craniocaudal and mediolateral oblique views along with computer-aided detection (CAD). Synthesized 2D images are generated from the tomosynthesis. FINDINGS: The breasts are extremely dense, which lowers the sensitivity of mammography (ACR BI-RADS breast composition Category d). There are no significant masses, abnormal calcifications, or other abnormalities. MM/MM tomosynthesis screening BI IMPRESSION: There are no significant changes from prior study. ASSESSMENT: BI-RADS 1: Negative RECOMMENDATION: Routine annual mammography screening. This patient's information was entered into a reminder system with a target due date for their next mammogram.
== END 2020-09-12 12:22 | disposition home or self-care (01) ==
LOC: HO.MAMMO 12:21
PROVIDERS: PCP Family Medicine; Visit Provider Family Medicine
DX: Z12.31 Encounter for screening mammogram for malignant neoplasm of breast (principal)
CPT/HCPCS: 77063; 77067

== ENCOUNTER → 2020-10-10 07:17 | Outpatient (REF) | payer MEDICARE, SELFPAY ==
--- NOTE | 2020-10-10 07:21 | CA_ITS ---
Transthoracic Echocardiogram Patient (Last, First, Middle): Allen Ludwig, Gender: Female Date of : 1935 Age: 85 Procedure Date: 10/10/2020 Procedure Type: Transthoracic Echocardiogram Location: OP Height: 152.4 cm Weight: 47.63 kg BSA: 1.42 m2 Heart Rate: bpm BP: 118 / 60 mmHg [employer] Representatives: DORY Referring MD: Raegan Chan [employer]ER-C Symptoms: I47.2 - Ventricular tachycardia Study Quality: Good ECG Rhythm: Ventriculary paced rhythm Conclusions: - The left ventricular systolic function is low normal. The visually estimated ejection fraction is between 50-55%. - There is mild mitral valve regurgitation. - There is mild tricuspid valve regurgitation. 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 Findings Left Ventricle Normal left ventricular cavity size. There is normal left ventricular wall thickness. The left ventricular systolic function is low normal. The visually estimated ejection fraction is between 50-55%. E/E prime ratio is between 8 and 15 consistent with indeterminate filling pressures. Evidence suggests grade I (mild) diastolic dysfunction. Right Ventricle Normal right ventricular cavity size and systolic function. There is a pacemaker wire seen in the right ventricle. Atria The left atrium is normal in size. The right atrium is normal in size. A pacemaker wire is identified in the right atrium. Aortic Valve There is a normal trileaflet aortic valve. There is no aortic valve stenosis. There is trace (trivial) aortic valve regurgitation. Mitral Valve The mitral valve appears normal. There is mild mitral valve regurgitation. There is no mitral valve stenosis. Pulmonic Valve The pulmonic valve was not well visualized. There is trace pulmonic valve regurgitation. Tricuspid Valve Normal tricuspid valve structure. There is mild tricuspid valve regurgitation. The pulmonary artery systolic pressure is normal. 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 Venous The inferior vena cava is normal in size and collapses greater than 50% with inspiration. Pericardium/Pleural There is no evidence of pericardial effusion. Prior Study Comparison No significant change compared to prior study dated: 02/27/2020. Measurements 2D Linear Measurements IVSd: 0.82 0.6-0.9/0.6-1.0 cm LVIDd: 4.72 3.9-5.3/4.2-5.9 cm LVIDd Index: 3.32 2.4-3.2/2.2-3.1 cm/m2 LVIDs: 2.91 2.0-3.6 cm LVPWd: 0.83 0.7-1.1 cm Ao Root: 3.50 2.1-3.5 cm LA Diam: 2.80 2.7-3.8/3.0-4.0 cm LAIDs Index: 1.97 1.5-2.3 cm/m2 LV Mass: 159.83 67-162/88-224 g LV Mass Index: 112.56 43-95/49-115 g/m2 LVOT Diam: 2.40 3.0+(-)1.3 cm Mitral Valve MV Pk E: 0.44 MV PK A: 0.85 MV Decel Time: 209.00 E/A: 0.50 E'Lateral: 4.46 E'Medial: 4.79 E/E' Med: 9.20 E/E' Lat: 9.90 PHT: 61.00 MVA PHT: 3.61 Decel [place]: 2.11 Aortic Valve AoV Pk Quentin: 1.25 AoV Mn Quentin: 0.85 AoV VTI: 0.28 AoV Pk Grad: 6.00 Aov Mn Grad: 3.00 JYOTHI Cont.VTI: 3.53 LVOT LVOT Pk Quentin: 1.00 LVOT Mn Quentin: 0.63 LVOT VTI: 0.22 LVOT Pk Grad: 4.00 LVOT Mn Grad: 2.00 LVOT Diam: 2.40 LVOT Area: 4.52 Diastolic Function MV Pk E: 0.44 MV Pk A: 0.85 E/A: 0.50 E'Medial: 4.79 E/E' Med: 9.20 E' Laterial: 4.46 E/E' Lat: 9.90 Tricuspid Valve TR Pk Quentin: 2.36 TR Pk Grad: 22.00 RA Press: 3.00 RVSP: 25.00 Great Vessels Aorta Ao Root-2D: 3.50 2.0-3.7 cm Ao Asc: 4.00 2.1-3.4 cm Pulmonary Valve PV Pk Quentin: 0.73 Peak PV Grad: 2.00 Updated in Other Vendor System with Status of Final Raoul Flores MD electronically signed on 10/12/2020 1:43:24 PM with status of Final
== END ==
LOC: HO.CARD 07:17
PROVIDERS: Visit Provider Nurse Practitioner Family
DX: I10 Essential (primary) hypertension (principal); I47.2 Ventricular tachycardia
CPT/HCPCS: 93306

== ENCOUNTER 2020-11-01 08:30 | Outpatient (REF) | payer MEDICARE, SELFPAY ==
[2020-11-01 10:15] LABS: MANUAL DIFF FLAG NO
[2020-11-01 10:22] LABS: Basophils Percent Auto 0.5 % (0-2); Eosinophils Absolute Auto 0.2 X10*3/uL (0.0-0.4); Eosinophils Percent Auto 2.4 % (0-4); Hemoglobin 9.8 g/dl (12.0-16.0); Imm Gran Abs Auto 0.04 X10*3/uL (0.00-0.03); Imm Gran Pct Auto 0.6 % (0.0-0.4); Lymphocytes Absolute Auto 1.5 X10*3/uL (1.2-4.9); Lymphocytes Percent Auto 24.2 % (20-40); Mean Corpuscular HGB Conc 31.6 g/dl (31.0-35.0); Mean Corpuscular Hemoglobin 27.8 pg (27.0-33.0); Mean Corpuscular Volume 87.8 fL (80-98); Mean Platelet Volume 11.8 fL (9.4-12.3); Monocytes Absolute Auto 0.5 X10*3/uL (0.1-1.2); Neutrophils Percent Auto 64.3 % (45-73); Platelet Count 143 X10*3/uL (160-400); Red Blood Count 3.53 X10*6/uL (4.20-5.50); Red Cell Distribution Width 17.6 % (11.0-16.0); White Blood Count 6.2 X10*3/uL (4.8-10.8)
== END 2020-11-01 08:31 | disposition home or self-care (01) ==
LOC: HO.10HDL 08:30
PROVIDERS: Absent Provider Internal Medicine Hematology; Visit Provider Family Medicine
DX: D46.9 Myelodysplastic syndrome, unspecified (principal)
CPT/HCPCS: 36415; 85025

== ENCOUNTER 2021-01-11 08:29 | Outpatient (REF) | payer MEDICARE, SELFPAY ==
[2021-01-11 09:11] LABS: MANUAL DIFF FLAG NO
[2021-01-11 09:24] LABS: Basophils Percent Auto 0.5 % (0-2); Eosinophils Absolute Auto 0.2 X10*3/uL (0.0-0.4); Eosinophils Percent Auto 2.9 % (0-4); Hematocrit 32.9 % (37-47); Hemoglobin 10.8 g/dl (12.0-16.0); Imm Gran Abs Auto 0.02 X10*3/uL (0.00-0.03); Imm Gran Pct Auto 0.3 % (0.0-0.4); Lymphocytes Absolute Auto 1.3 X10*3/uL (1.2-4.9); Lymphocytes Percent Auto 21.8 % (20-40); Mean Corpuscular HGB Conc 32.8 g/dl (31.0-35.0); Mean Corpuscular Hemoglobin 28.1 pg (27.0-33.0); Mean Corpuscular Volume 85.7 fL (80-98); Mean Platelet Volume 10.8 fL (9.4-12.3); Monocytes Absolute Auto 0.5 X10*3/uL (0.1-1.2); Monocytes Percent Auto 8.1 % (2-11); Neutrophils Absolute Auto 3.8 X10*3/uL (2.0-8.3); Neutrophils Percent Auto 66.4 % (45-73); Red Blood Count 3.84 X10*6/uL (4.20-5.50); Red Cell Distribution Width 13.8 % (11.0-16.0); White Blood Count 5.8 X10*3/uL (4.8-10.8)
[2021-01-11 09:35] LABS: Platelet Count 72 X10*3/uL (160-400)
[2021-01-11 09:56] LABS: Anion Gap 13 (12-20); Blood Urea Nitrogen 21 mg/dL (9-16); Carbon Dioxide 25 mmol/L (22-29); Chloride 111 mmol/L (96-108); Estimated Glomerular Filt Rate 56; Potassium 3.6 mmol/L (3.3-5.1); Sodium 145 mmol/L (135-145)
[2021-01-11 10:05] LABS: Free T4 (Free Thyroxine) 0.77 ng/dL (0.71-1.85)
== END 2021-01-11 08:30 | disposition home or self-care (01) ==
LOC: HO.LAB 08:29
PROVIDERS: PCP Family Medicine; Visit Provider Family Medicine
DX: D64.9 Anemia, unspecified (principal); I10 Essential (primary) hypertension; R00.0 Tachycardia, unspecified
CPT/HCPCS: 36415; 80051; 82565; 84439; 84520; 85025

== ENCOUNTER 2021-01-24 10:12 | Outpatient (REF) | payer MEDICARE, SELFPAY ==
--- NOTE | ~2021-01-24 | CT_ITS ---
EXAMINATION: CT ANGIOGRAM ABDOMEN CLINICAL INFORMATION: Hypertensive urgency. Rule out renal artery stenosis. COMPARISON: CT abdomen and pelvis 05/22/2020 TECHNIQUE: Multiple axial images were obtained through the abdomen following the administration of 80 mL Omnipaque 350 intravenous contrast. Images were reviewed on a dedicated 3-D workstation. This CT examination was performed using dose optimization techniques as appropriate, variously including the following: *Automated exposure control *Adjustment of mA and/or kV according to patient size (this includes techniques or standardized protocols for targeted exams where dose is matched to indication/reason for exam; i.e. extremities or head) *Use of iterative reconstruction technique DLP: 88 mGy-cm FINDINGS: VASCULAR: The imaged descending thoracic aorta is normal in caliber. There is no evidence of dissection or other acute aortic syndrome. The abdominal aorta while normal in caliber is relatively tortuous. There is no evidence of dissection or other acute aortic syndrome. There is moderate eccentric wall calcification. The iliac bifurcation is patent. The common iliac arteries are well opacified, normal in caliber and without hemodynamically significant stenosis. Celiac trunk is widely patent from its origin. Superior mesenteric artery is widely patent from its origin. Inferior mesenteric artery is patent. There are 2 left renal arteries and a single right renal artery. There is a suggestion of a tiny linear filling defect just beyond the origin of the right renal artery which could represent a tiny focal dissection, however this could quite likely be artifactual in nature. The vessel proximal to and beyond this abnormality is widely patent. The left renal arteries are widely patent from their origins. There is an unremarkable appearance of the portal mesenteric venous system and inferior vena cava for an arterial phase of contrast. NONVASCULAR: There are regions of linear atelectasis in the lung bases which are otherwise clear. There is no pleural effusion. There is a partially visualized right ventricular pacemaker lead in place. There is no pericardial effusion seen. The liver is normal in overall size, shape and attenuation. There is a 1.6 cm simple cyst within the right hepatic lobe. There is no intra or extrahepatic duct dilation. The gallbladder is physiologically distended and otherwise unremarkable. The pancreas is unremarkable. Spleen is unremarkable. The adrenal glands are unremarkable. The kidneys are equal in size and overall enhancement and there is mild bilateral renal cortical thinning. There is a 9 mm fat attenuation structure at the lower pole of the right kidney which may represent an angiomyolipoma. There is a 1 cm cyst at the upper pole the right kidney and there are bilateral parapelvic cysts. No renal calculi or hydroureteronephrosis is seen. There is a large hiatus hernia containing the proximal stomach. The imaged small and large bowel are normal in caliber and there is diverticulosis of the visualized colon. There is a prominent duodenal diverticulum arising from the third portion of the duodenum as well. No pathologically enlarged abdominal lymph nodes are identified. No significant hernia of the body wall is identified. No free intraperitoneal fluid is seen. There are [id number] degenerative changes of the imaged thoracolumbar spine without acute or aggressive bony abnormality seen. CT/CT angio abdomen IMPRESSION: Patent abdominal arterial vasculature. No evidence of aneurysm or acute aortic syndrome. Patent bilateral renal arteries. There is a questionable tiny linear filling defect within the proximal right renal artery, however, this is felt likely to be artifactual in nature. No definite evidence of renal artery stenosis. Large hiatus hernia containing much of the proximal stomach. 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 Colonic diverticulosis. Bilateral renal cortical thinning.
[2021-01-24] MEDS: iohexoL 350 MG/ML 100 ML INFUS..BTL IV (11:57)
== END 2021-01-24 10:13 | disposition home or self-care (01) ==
LOC: HO.CT 10:12
PROVIDERS: PCP Student in an Organized Health Care Education/Training Program; Visit Provider Family Medicine
DX: I16.0 Hypertensive urgency (principal)
CPT/HCPCS: 74175; Q9967

== ENCOUNTER → 2021-01-30 13:39 | Outpatient (BNVA) | payer MEDICARE, SELFPAY | PROVIDERS: PCP Family Medicine; Referring Provider Family Medicine; Visit Provider Surgery | DX: L98.9 Disorder of the skin and subcutaneous tissue, unspecified (principal); I10 Essential (primary) hypertension; Z95.0 Presence of cardiac pacemaker | CPT/HCPCS: 99202 ==

== ENCOUNTER → 2021-02-12 14:35 | Outpatient (BNVA) | payer MEDICARE, SELFPAY | PROVIDERS: PCP Family Medicine; Referring Provider Family Medicine; Visit Provider Internal Medicine | DX: Z45.018 Encounter for adjustment and management of other part of cardiac pacemaker (principal); I10 Essential (primary) hypertension | CPT/HCPCS: 99212 ==

== ENCOUNTER 2021-03-14 12:42 | Outpatient (REF) | payer MEDICARE, SELFPAY ==
[2021-03-14 12:47] VITALS: BMI 21.4
[2021-03-14 12:48] VITALS: BP 169/75; PULSE 68; RESP 16; TEMP 35.9; O2SAT 97
[2021-03-14 13:20] VITALS: BP 190/75; PULSE 62; RESP 16; O2SAT 97
--- NOTE | 2021-03-14 13:24 | P.OP_ITS ---
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 This was suggestive of squamous cell carcinoma. This measured about 5.5 cm in length up and about 2.5 cm wide. She understood the technique of excision under local anesthesia. She was aware of the risks, benefits, and alternatives She was brought to the minor procedure room. She was placed supine with the left arm rotated to expose the area of the lesion. This was prepped and draped. Lidocaine 1% was used for local anesthesia. An elliptical incision made the skin surrounding this lesion using blade 15, with care being taken so as to ensure that we had margins of grossly normal- looking skin with the specimen. We continued to sharply dissect this with the blade to include the full- thickness skin and part of subcutaneous layer. This was sent as specimen. I undermined both sides of the incision to allow closure without tension. I closed the incision multiple nylon 3-0 interrupted sutures. Dressings were applied and this area was wrapped with a Mynor roll The patient tolerated did the procedure well. There were no immediate complications. Estimated blood loss about 3 cc Patient will be seen in the office in about 2 weeks for removal sutures. Wound care instructions were given to her and her daughter.
--- NOTE | 2021-03-14 13:27 | PM.OP ---
Brief Operative Note Date of Service: 03/14/21 Pre-op diagnosis: Skin lesion left forearm Post-op diagnosis: same Procedure: Excision of skin lesion under local anesthesia left forearm Surgeon: Abraham Verdugo MD Anesthesia: local Was an Lead Mechanical Engineer used for this Procedure?: No Estimated blood loss (mL): 3 Pathology: other (Skin lesion) Condition: stable Disposition: other (Home)
== END 2021-03-14 12:43 | disposition home or self-care (01) ==
LOC: HO.MS 12:42
PROVIDERS: PCP Student in an Organized Health Care Education/Training Program; Visit Provider Surgery
PROC: (CPT 11606; principal; 2021-03-14 13:00)
DX: C44.619 Basal cell carcinoma of skin of left upper limb, including shoulder (principal); I10 Essential (primary) hypertension; Z95.0 Presence of cardiac pacemaker; Z79.899 Other long term (current) drug therapy
CPT/HCPCS: 11606; 88305

== ENCOUNTER → 2021-03-27 10:23 | Outpatient (BNVA) | payer MEDICARE, SELFPAY | PROVIDERS: PCP Student in an Organized Health Care Education/Training Program; Visit Provider Surgery | DX: Z48.817 Encounter for surgical aftercare following surgery on the skin and subcutaneous tissue (principal); Z86.018 Personal history of other benign neoplasm | CPT/HCPCS: 99212 ==

== ENCOUNTER → 2021-09-16 12:05 | Outpatient (BNVA) | payer MEDICARE, SELFPAY | PROVIDERS: PCP Family Medicine; Visit Provider Internal Medicine | DX: Z45.018 Encounter for adjustment and management of other part of cardiac pacemaker (principal); I10 Essential (primary) hypertension | CPT/HCPCS: 93005; 99212 ==

== ENCOUNTER 2021-09-26 07:37 | Outpatient (REF) | payer MEDICARE, SELFPAY ==
--- NOTE | ~2021-09-26 | MM_ITS ---
EXAMINATION: MM SCREENING DIGITAL BREAST TOMOSYNTHESIS, BILATERAL CLINICAL INFORMATION: Screening. Asymptomatic. Benign biopsies right breast in 2016 and 2002. The lifetime risk of breast cancer based on the Tyrer-Cuzick Model is 1%. COMPARISON: Mammography: 09/12/2020, 11/20/2018, 11/09/2017, 10/13/2016. TECHNIQUE: Digital breast tomosynthesis is performed in both the craniocaudal and mediolateral oblique views along with computer-aided detection (CAD). Synthesized 2D images are generated from the tomosynthesis. FINDINGS: The breasts are extremely dense, which lowers the sensitivity of mammography (ACR BI-RADS breast composition Category d). Parenchymal pattern is similar to prior studies. There is no significant mass or architectural abnormality. Regional benign coarse calcifications are again noted anterior mid 12:00 right breast in area to biopsy clip markers. There are increasing dystrophic calcifications over time. The axilla are unremarkable. The left breast has a probable intradermal lesion lesion posterior 7:00 position measuring 0.8 cm. This may represent a sebaceous cyst. Patient will be recalled for further evaluation. MM/MM tomosynthesis screening BI IMPRESSION: 1. Left: Superficial nodule posterior 7:00 position 0.8 cm, sebaceous cyst suspected. 2. Right: No mammographic evidence of malignancy. ASSESSMENT: BI-RADS 0: Incomplete - Need Additional Imaging Evaluation RECOMMENDATION: 1. Targeted ultrasound left breast. 2. Radiology department staff will contact the patient for additional imaging. This patient's information was entered into a reminder system with a target due date for their next mammogram.
== END 2021-09-26 07:38 | disposition home or self-care (01) ==
LOC: HO.MAMMO 07:37
PROVIDERS: PCP Family Medicine; Visit Provider Family Medicine
DX: Z12.31 Encounter for screening mammogram for malignant neoplasm of breast (principal)
CPT/HCPCS: 77063; 77067

== ENCOUNTER 2021-09-26 08:41 | Outpatient (REF) | payer MEDICARE, SELFPAY ==
[2021-09-26 10:48] LABS: Anion Gap 11 (12-20); Blood Urea Nitrogen 23 mg/dL (9-16); Carbon Dioxide 25 mmol/L (22-29); Chloride 107 mmol/L (96-108); Estimated Glomerular Filt Rate 56; Potassium 3.6 mmol/L (3.3-5.1); Sodium 139 mmol/L (135-145)
== END 2021-09-26 08:42 | disposition home or self-care (01) ==
LOC: HO.10HDL 08:41
PROVIDERS: Absent Provider Internal Medicine; Visit Provider Family Medicine
DX: I10 Essential (primary) hypertension (principal)
CPT/HCPCS: 36415; 80051; 82565; 84520

== ENCOUNTER 2021-10-01 12:58 | Outpatient (REF) | payer MEDICARE, SELFPAY ==
--- NOTE | ~2021-10-01 | US_ITS ---
EXAMINATION: US DIAGNOSTIC ULTRASOUND BREAST, LEFT CLINICAL INFORMATION: Recall from screening for nodule posterior inferior left breast, suspect intradermal lesion just under 1 cm. COMPARISON: Mammography 09/26/2021. TECHNIQUE: Ultrasound left breast is targeted to the inferior posterior breast. Grayscale imaging and color Doppler are performed without and with harmonics. FINDINGS: There is an oval circumscribed hypoechoic nodule within the skin posterior 7:00 position measuring 0.8 x 0.4 x 0.7 cm. There is no subdermal extension. No surrounding or internal color flow or hyperemia. There is no edema tracking in soft tissue planes. No focal duct ectasia. Results are discussed with the patient at time of visit. The finding appears to represent a benign intradermal lesion such as sebaceous cyst or epidermal cyst. Patient confirms that the finding is a chronic nodule and is asymptomatic and without change in size. US/US breast LT limited IMPRESSION: Intradermal avascular cystic lesion posterior inferior left breast likely sebaceous cyst measuring 0.8 cm. No hyperemia. ASSESSMENT: BI-RADS 2: Benign RECOMMENDATION: Routine annual mammography screening. This patient's information was entered into a reminder system with a target due date for their next mammogram.
== END 2021-10-01 12:59 | disposition home or self-care (01) ==
LOC: HO.MAMMO 12:58
PROVIDERS: Visit Provider Family Medicine
DX: N63.24 Unspecified lump in the left breast, lower inner quadrant (principal)
CPT/HCPCS: 76642

== ENCOUNTER 2022-03-17 11:44 | Outpatient (REF) | payer MEDICARE, SELFPAY ==
[2022-03-17 13:38] LABS: MANUAL DIFF FLAG NO
[2022-03-17 13:49] LABS: Basophils Percent Auto 0.6 % (0-2); Eosinophils Absolute Auto 0.1 X10*3/uL (0.0-0.4); Hematocrit 31.9 % (37.0-47.0); Hemoglobin 10.6 g/dl (12.0-16.0); Imm Gran Abs Auto 0.04 X10*3/uL (0.00-0.03); Imm Gran Pct Auto 0.6 % (0.0-0.4); Lymphocytes Absolute Auto 1.8 X10*3/uL (1.2-4.9); Lymphocytes Percent Auto 25.5 % (20-40); Mean Corpuscular HGB Conc 33.2 g/dl (31.0-35.0); Mean Corpuscular Hemoglobin 28.5 pg (27.0-33.0); Mean Corpuscular Volume 85.8 fL (80.0-98.0); Mean Platelet Volume 12.6 fL (9.4-12.3); Monocytes Absolute Auto 0.4 X10*3/uL (0.1-1.2); Monocytes Percent Auto 6.1 % (2-11); Neutrophils Absolute Auto 4.6 x10*3/uL (2.0-8.3); Neutrophils Percent Auto 65.2 % (45-73); Red Blood Count 3.72 X10*6/uL (4.20-5.50); Red Cell Distribution Width 13.7 % (11.0-16.0)
[2022-03-17 14:02] LABS: Anion Gap 14 (12-20); Blood Urea Nitrogen 24 mg/dL (9-16); Carbon Dioxide 24 mmol/L (22-29); Chloride 105 mmol/L (96-108); Estimated Glomerular Filt Rate > 60; Platelet Count 45 X10*3/uL (160-400); Potassium 4.1 mmol/L (3.3-5.1); Sodium 139 mmol/L (135-145)
== END 2022-03-17 11:45 | disposition home or self-care (01) ==
LOC: HO.10HDL 11:44
PROVIDERS: Absent Provider Internal Medicine Hematology; Visit Provider Family Medicine
DX: I10 Essential (primary) hypertension (principal); D64.9 Anemia, unspecified
CPT/HCPCS: 36415; 80051; 82565; 84520; 85025

== ENCOUNTER 2022-03-20 08:02 | Outpatient (REF) | payer MEDICARE, SELFPAY ==
--- NOTE | ~2022-03-20 | XR_ITS ---
EXAMINATION: XR KNEE, LEFT CLINICAL INFORMATION: Left knee pain COMPARISON: None TECHNIQUE: Four views of the left knee. FINDINGS: There is chondrocalcinosis with joint space maintained normal. No joint effusion, bony erosive changes or loose body seen. No acute fracture or dislocation. XR/XR knee LT 4V IMPRESSION: Bilateral chondrocalcinosis. No acute fracture, bony erosive changes or joint effusion.
== END 2022-03-20 08:03 | disposition home or self-care (01) ==
LOC: HO.XRAY 08:02
PROVIDERS: PCP Family Medicine; Visit Provider Family Medicine
DX: M25.562 Pain in left knee (principal)
CPT/HCPCS: 73564

== ENCOUNTER → 2022-04-21 12:25 | Outpatient (BNVA) | payer MEDICARE, SELFPAY | PROVIDERS: PCP Family Medicine; Visit Provider Physician Assistant | DX: M17.12 Unilateral primary osteoarthritis, left knee (principal) | CPT/HCPCS: 99202 ==

== ENCOUNTER → 2022-05-12 13:08 | Outpatient (BNVA) | payer MEDICARE, SELFPAY | PROVIDERS: PCP Family Medicine; Referring Provider Family Medicine; Visit Provider Internal Medicine | DX: I10 Essential (primary) hypertension (principal); I77.810 Thoracic aortic ectasia; Z79.899 Other long term (current) drug therapy; Z95.0 Presence of cardiac pacemaker | CPT/HCPCS: 99212 ==

== ENCOUNTER 2022-10-02 08:25 | Outpatient (REF) | payer MEDICARE, SELFPAY ==
--- NOTE | ~2022-10-02 | MM_ITS ---
EXAMINATION: MM SCREENING DIGITAL BREAST TOMOSYNTHESIS, BILATERAL CLINICAL INFORMATION: Screening. Asymptomatic. COMPARISON: Mammography: 09/26/2021, 09/12/2020, 11/20/2018; left breast ultrasound 10/01/2021 TECHNIQUE: Digital breast tomosynthesis is performed in both the craniocaudal and mediolateral oblique views along with computer-aided detection (CAD). Synthesized 2D images are generated from the tomosynthesis. Additional left MLO view is provided. FINDINGS: The breasts are extremely dense, which lowers the sensitivity of mammography (ACR BI-RADS breast composition Category d). Parenchymal pattern is similar to prior studies. There is a known intradermal sebaceous cyst posterior 7:00 left breast which is borderline increased in size. There is no architectural abnormality or significant mass demonstrated. Again, regional coarse and some fine calcifications are again noted mid to anterior right breast. There are 2 biopsy clip markers in this area. The axilla and skin contours are unremarkable. No significant changes. MM/MM tomosynthesis screening BI IMPRESSION: No significant changes from prior studies. ASSESSMENT: BI-RADS 2: Benign RECOMMENDATION: Routine annual mammography screening. This patient's information was entered into a reminder system with a target due date for their next mammogram.
== END 2022-10-02 08:26 | disposition home or self-care (01) ==
LOC: HO.MAMMO 08:25
PROVIDERS: Visit Provider Family Medicine
DX: Z12.31 Encounter for screening mammogram for malignant neoplasm of breast (principal)
CPT/HCPCS: 77063; 77067

== ENCOUNTER 2022-10-02 09:17 | Outpatient (REF) | payer MEDICARE, SELFPAY ==
[2022-10-02 10:54] LABS: MANUAL DIFF FLAG NO
[2022-10-02 11:24] LABS: Basophils Percent Auto 0.7 % (0-2); Eosinophils Absolute Auto 0.2 X10*3/uL (0.0-0.4); Eosinophils Percent Auto 3.6 % (0-4); Hematocrit 33.7 % (37.0-47.0); Imm Gran Abs Auto 0.03 X10*3/uL (0.00-0.03); Imm Gran Pct Auto 0.5 % (0.0-0.4); Lymphocytes Absolute Auto 1.8 X10*3/uL (1.2-4.9); Lymphocytes Percent Auto 30.1 % (20-40); Mean Corpuscular HGB Conc 32.6 g/dl (31.0-35.0); Mean Corpuscular Hemoglobin 28.4 pg (27.0-33.0); Mean Corpuscular Volume 87.1 fL (80.0-98.0); Mean Platelet Volume 12.8 fL (9.4-12.3); Monocytes Absolute Auto 0.5 X10*3/uL (0.1-1.2); Monocytes Percent Auto 8.7 % (2-11); Neutrophils Absolute Auto 3.3 x10*3/uL (2.0-8.3); Neutrophils Percent Auto 56.4 % (45-73); Platelet Count 32 X10*3/uL (160-400); Red Blood Count 3.87 X10*6/uL (4.20-5.50); Red Cell Distribution Width 13.8 % (11.0-16.0); White Blood Count 5.9 X10*3/uL (4.8-10.8)
[2022-10-02 11:46] LABS: Anion Gap 13 (12-20); Blood Urea Nitrogen 32 mg/dL (9-16); Carbon Dioxide 25 mmol/L (22-29); Chloride 107 mmol/L (96-108); Estimated Glomerular Filt Rate 58; Potassium 4.3 mmol/L (3.3-5.1); Sodium 141 mmol/L (135-145)
== END 2022-10-02 09:18 | disposition home or self-care (01) ==
LOC: HO.10HDL 09:17
PROVIDERS: Visit Provider Family Medicine
DX: I10 Essential (primary) hypertension (principal); D69.6 Thrombocytopenia, unspecified
CPT/HCPCS: 36415; 80051; 82565; 84520; 85025

== ENCOUNTER → 2022-11-03 14:34 | Outpatient (REF) | payer MEDICARE, SELFPAY ==
--- NOTE | 2022-11-03 14:38 | CA_ITS ---
Transthoracic Echocardiogram Patient (Last, First, Middle): Allen Ludwig, Gender: Female Date of : 1935 Age: 87 Procedure Date: 11/03/2022 Procedure Type: Transthoracic Echocardiogram Location: OP Height: 149.86 cm Weight: 49.9 kg BSA: 1.43 m2 Heart Rate: bpm BP: 154 / 78 mmHg Economic Specialist: WILLY Referring MD: Raoul Flores MD Symptoms: I77.810 - Thoracic aortic ectasia Study Quality: Good Conclusions: - The left ventricular systolic function is normal. The visually estimated ejection fraction is between 65-70%. - The left atrium is moderately dilated. - There is mild mitral valve regurgitation. 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 Findings Left Ventricle Normal left ventricular cavity size. There is normal left ventricular wall thickness. The left ventricular systolic function is normal. The visually estimated ejection fraction is between 65-70%. There is no evidence of regional wall motion abnormalities. E/E prime ratio is between 8 and 15 consistent with indeterminate filling pressures. Evidence suggests grade I (mild) diastolic dysfunction. There is mild septal asymmetric hypertrophy. LV peak GLS -17.3%. Right Ventricle Normal right ventricular cavity size and systolic function. Atria The left atrium is moderately dilated. The right atrium is mildly dilated. Aortic Valve There is a normal trileaflet aortic valve. There is no aortic valve stenosis. There is no aortic valve regurgitation. Mitral Valve The mitral valve appears normal. There is mild mitral valve regurgitation. There is no mitral valve stenosis. Pulmonic Valve The pulmonic valve is likely normal. Tricuspid Valve Normal tricuspid valve structure. There is mild tricuspid valve regurgitation. There is no evidence of pulmonary hypertension. 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 Venous The inferior vena cava is normal in size and collapses greater than 50% with inspiration. Pericardium/Pleural There is no evidence of pericardial effusion. Prior Study Comparison Changes noted compared to prior study dated: 10/10/2020. LVEF higher. Change in atrial size. Measurements 2D Linear Measurements IVSd: 0.98 0.6-0.9/0.6-1.0 cm LVIDd: 4.57 3.9-5.3/4.2-5.9 cm LVIDd Index: 3.20 2.4-3.2/2.2-3.1 cm/m2 LVIDs: 2.19 2.0-3.6 cm LVPWd: 1.00 0.7-1.1 cm LA Diam: 3.40 2.7-3.8/3.0-4.0 cm LAIDs Index: 2.38 1.5-2.3 cm/m2 LV Mass: 192.99 67-162/88-224 g LV Mass Index: 134.96 43-95/49-115 g/m2 LVOT Diam: 2.30 3.0+(-)1.3 cm 2D Systolic Function EF 4C: 70.70 >55% EF 2C: 69.10 >55% EF BiP: 70.00 >55% Mitral Valve MV Pk E: 0.85 MV PK A: 1.01 MV Decel Time: 192.00 E/A: 0.80 E'Lateral: 8.27 E'Medial: 4.90 E/E' Med: 17.40 E/E' Lat: 10.30 PHT: 56.00 MVA PHT: 3.93 Decel Lee: 4.45 Aortic Valve AoV Pk Quentin: 1.50 AoV Mn Quentin: 0.99 AoV VTI: 0.35 AoV Pk Grad: 9.00 Aov Mn Grad: 5.00 JYOTHI Cont.VTI: 3.22 LVOT LVOT Pk Quentin: 1.13 LVOT Mn Quentin: 0.81 LVOT VTI: 0.27 LVOT Pk Grad: 5.00 LVOT Mn Grad: 3.00 LVOT Diam: 2.30 LVOT Area: 4.15 Diastolic Function MV Pk E: 0.85 MV Pk A: 1.01 E/A: 0.80 E'Medial: 4.90 E/E' Med: 17.40 E' Laterial: 8.27 E/E' Lat: 10.30 Right Ventricle TAPSE (mm): 27.90 TVS' Quentin: 12.60 Tricuspid Valve TR Pk Quentin: 2.51 TR Pk Grad: 25.00 RA Press: 3.00 RVSP: 28.00 Great Vessels Aorta Sinus of Valsalva: 3.53 2.0-3.[address] Ridge: 2.81 1.7-3.4 cm Ao Asc: 4.00 2.1-3.4 cm Updated in Other Vendor System with Status of Final aRoul Flores MD electronically signed on 11/03/2022 4:55:15 PM with status of Final
== END ==
LOC: HO.CARD 14:34
PROVIDERS: Visit Provider Internal Medicine
DX: I77.810 Thoracic aortic ectasia (principal)
CPT/HCPCS: 93306; 93356

== ENCOUNTER → 2022-11-10 14:14 | Outpatient (BNVA) | payer MEDICARE, SELFPAY | PROVIDERS: PCP Family Medicine; Referring Provider Family Medicine; Visit Provider Internal Medicine | DX: Z45.018 Encounter for adjustment and management of other part of cardiac pacemaker (principal); I77.810 Thoracic aortic ectasia; I10 Essential (primary) hypertension | CPT/HCPCS: 93005; 93280; 99212 ==

== ENCOUNTER 2023-02-24 08:44 | Outpatient (REF) | payer MEDICARE, SELFPAY ==
[2023-02-24 11:00] LABS: MANUAL DIFF FLAG NO
[2023-02-24 11:12] LABS: Basophils Percent Auto 0.6 % (0-2); Eosinophils Absolute Auto 0.2 X10*3/uL (0.0-0.4); Eosinophils Percent Auto 3.1 % (0-4); Hematocrit 33.7 % (37.0-47.0); Hemoglobin 10.7 g/dl (12.0-16.0); Imm Gran Abs Auto 0.04 X10*3/uL (0.00-0.03); Imm Gran Pct Auto 0.6 % (0.0-0.4); Lymphocytes Absolute Auto 1.7 X10*3/uL (1.2-4.9); Lymphocytes Percent Auto 26.3 % (20-40); Mean Corpuscular HGB Conc 31.8 g/dl (31.0-35.0); Mean Corpuscular Hemoglobin 27.7 pg (27.0-33.0); Mean Corpuscular Volume 87.3 fL (80.0-98.0); Mean Platelet Volume 12.5 fL (9.4-12.3); Monocytes Absolute Auto 0.5 X10*3/uL (0.1-1.2); Monocytes Percent Auto 7.6 % (2-11); Neutrophils Absolute Auto 4.1 x10*3/uL (2.0-8.3); Neutrophils Percent Auto 61.8 % (45-73); Red Blood Count 3.86 X10*6/uL (4.20-5.50); Red Cell Distribution Width 14.1 % (11.0-16.0); White Blood Count 6.6 X10*3/uL (4.8-10.8)
[2023-02-24 11:13] LABS: Platelet Count 70 X10*3/uL (160-400)
[2023-02-24 11:32] LABS: Anion Gap 11 (12-20); Blood Urea Nitrogen 29 mg/dL (9-16); Carbon Dioxide 24 mmol/L (22-29); Chloride 109 mmol/L (96-108); Estimated Glomerular Filt Rate > 60; Potassium 4.4 mmol/L (3.3-5.1); Sodium 140 mmol/L (135-145)
== END 2023-02-24 08:45 | disposition home or self-care (01) ==
LOC: HO.10HDL 08:44
PROVIDERS: Visit Provider Family Medicine
DX: I10 Essential (primary) hypertension (principal)
CPT/HCPCS: 36415; 80051; 82565; 84520; 85025

== ENCOUNTER → 2023-03-05 23:59 | Outpatient (BNV) | payer MEDICARE, SELFPAY ==
--- NOTE | 2023-03-14 14:58 | A.OFFVIS_ITS ---
Intake Intake Visit Reasons: Remote Device Check- [facility] Allergies No Known Allergies [No Known Allergies*] Allergy (Verified 11/10/22 14:33) [facility] Medical History Basal cell carcinoma Essential hypertension H/O cardiac pacemaker Hypertension Normally functioning cardiac pacemaker present Skin lesion of left arm Surgical History History of permanent cardiac pacemaker placement Family History Father No problems noted. Mother No problems noted. Social History Household Members: None Housing: House Do you presently have visiting nurse or other home services: No Alcohol intake: never Patient Tobacco Use Status: Never used Tobacco Second Hand Smoke Exposure: No Current occupation: right handed. Office Procedures Cardiac Device Check Cardiac Device Check Details: Date of service- 03/05/2023 ; Battery life >6 years; normal lead parameters; AP 60%; DIRECTOR PHARMACOVIGILANCE 62%; no significant arrhythmias. Overall normal device function. [id number] Cardiac Device Interrogation, pacemaker Procedure code (CPT) selection complete Assessment & Plan Assessment & Plan (1) Heart block: Code(s): I45.9 - Conduction disorder, unspecified Coding Level of Care Code Procedure Only Diagnoses Heart block I45.9 CPT Codes Cardiac Device Check - Cardiac Device 12: [id number] Cardiac Device Interrogation, pacemaker ([id number])
== END ==
PROVIDERS: PCP Family Medicine; Visit Provider Internal Medicine
DX: I45.9 Conduction disorder, unspecified (principal); Z95.0 Presence of cardiac pacemaker
CPT/HCPCS: 93294

== ENCOUNTER → 2023-06-04 23:59 | Outpatient (BNV) | payer MEDICARE, SELFPAY ==
--- NOTE | 2023-06-10 08:20 | MHC.OFFVIS ---
Intake Intake Visit Reasons: Remote Device Check- [facility] Allergies No Known Allergies [No Known Allergies*] Allergy (Verified 11/10/22 14:33) [facility] Medical History Basal cell carcinoma Essential hypertension H/O cardiac pacemaker Hypertension Normally functioning cardiac pacemaker present Skin lesion of left arm Surgical History History of permanent cardiac pacemaker placement Family History Father No problems noted. Mother No problems noted. Social History Household Members: None Housing: House Do you presently have visiting nurse or other home services: No Alcohol intake: never Patient Tobacco Use Status: Never used Tobacco Second Hand Smoke Exposure: No Current occupation: right handed. Office Procedures Cardiac Device Check Cardiac Device Check Details: Date of service- 06/04/2023 ; Battery life >6 years; normal lead parameters; AP 63%; PLANNING MANAGER >99%; no significant arrhythmias. Overall normal device function. [id number] Cardiac Device Interrogation, pacemaker Procedure code (CPT) selection complete Assessment & Plan Assessment & Plan (1) Heart block: Code(s): I45.9 - Conduction disorder, unspecified (2) NSVT (nonsustained ventricular tachycardia): Code(s): I47.2 - Ventricular tachycardia Coding Level of Care Code Procedure Only Diagnoses Heart block I45.9 NSVT (nonsustained ventricular tachycardia) I47.2 CPT Codes Cardiac Device Check - Cardiac Device 12: [id number] Cardiac Device Interrogation, pacemaker ([id number])
== END ==
PROVIDERS: PCP Family Medicine; Visit Provider Internal Medicine
DX: I47.20 Ventricular tachycardia, unspecified (principal); Z95.0 Presence of cardiac pacemaker
CPT/HCPCS: 93294

== ENCOUNTER → 2023-09-03 23:59 | Outpatient (BNV) | payer MEDICARE, SELFPAY ==
--- NOTE | 2023-09-07 13:52 | A.OFFVIS_ITS ---
Intake Intake Visit Reasons: Remote Device Check- [facility] Allergies No Known Allergies [No Known Allergies*] Allergy (Verified 11/10/22 14:33) [facility] Medical History Basal cell carcinoma Essential hypertension H/O cardiac pacemaker Hypertension Normally functioning cardiac pacemaker present Skin lesion of left arm Surgical History History of permanent cardiac pacemaker placement Family History Father No problems noted. Mother No problems noted. Social History Household Members: None Housing: House Do you presently have visiting nurse or other home services: No Alcohol intake: never Patient Tobacco Use Status: Never used Tobacco Second Hand Smoke Exposure: No Current occupation: right handed. Office Procedures Cardiac Device Check Cardiac Device Check Details: Date of service- 09/03/2023 ; Battery life >6 years; normal lead parameters; AP 64%; MARINE CONSULTANT >99%; no significant arrhythmias. Overall normal device function. [id number] Cardiac Device Interrogation, pacemaker Procedure code (CPT) selection complete Assessment & Plan Assessment & Plan (1) Heart block: Code(s): I45.9 - Conduction disorder, unspecified Plan x Coding Level of Care Code Procedure Only Diagnoses Heart block I45.9 CPT Codes Cardiac Device Check - Cardiac Device 12: [id number] Cardiac Device Interrogation, pacemaker ([id number])
== END ==
PROVIDERS: PCP Family Medicine; Visit Provider Internal Medicine
DX: I45.9 Conduction disorder, unspecified (principal); Z95.0 Presence of cardiac pacemaker
CPT/HCPCS: 93294

== ENCOUNTER 2023-10-09 13:43 | Outpatient (REF) | payer MEDICARE, SELFPAY ==
--- NOTE | ~2023-10-09 | MM_ITS ---
EXAMINATION: MM SCREENING DIGITAL BREAST TOMOSYNTHESIS, BILATERAL CLINICAL INFORMATION: Screening. Asymptomatic. COMPARISON: Mammography: This study is compared with prior exams dating back to 2019. TECHNIQUE: Digital breast tomosynthesis is performed in both the craniocaudal and mediolateral oblique views along with computer-aided detection (CAD). Synthesized 2D images are generated from the tomosynthesis. FINDINGS: The breasts are heterogeneously dense, which may obscure small masses (ACR BI-RADS breast composition Category c). There are no significant masses, abnormal calcifications, or other abnormalities. There are several, large, coarse calcifications in the upper outer quadrant of the right breast spanning approximately 4 to 5 cm. These calcifications have further coarsened since the last mammogram from 2022. They are benign. MM/MM tomosynthesis screening BI IMPRESSION: No mammographic evidence of malignancy. ASSESSMENT: BI-RADS BI-RADS 2 - Benign Findings RECOMMENDATION: Routine annual mammography screening. 1 year F/U This examination should not preclude the clinical evaluation of a suspicious palpable abnormality. This patient's information was entered into a reminder system with a target due date for their next mammogram.
== END 2023-10-09 13:44 | disposition home or self-care (01) ==
LOC: HO.MAMMO 13:43
PROVIDERS: PCP Family Medicine; Visit Provider Family Medicine
DX: Z12.31 Encounter for screening mammogram for malignant neoplasm of breast (principal)
CPT/HCPCS: 77063; 77067

== ENCOUNTER → 2023-10-09 14:00 | Outpatient (BNV) | payer MEDICARE, SELFPAY | PROVIDERS: PCP Family Medicine; Visit Provider Radiology Diagnostic Radiology | DX: Z12.31 Encounter for screening mammogram for malignant neoplasm of breast (principal) | CPT/HCPCS: 77063; 77067 ==

== ENCOUNTER → 2023-12-03 23:59 | Outpatient (BNV) | payer MEDICARE, SELFPAY ==
--- NOTE | 2023-12-10 20:36 | MHC.OFFVIS ---
Intake Visit Reasons: Remote device check- [facility] Allergies No Known Allergies [No Known Allergies*] Allergy (Verified 11/10/22 14:33) [facility] Medical History Basal cell carcinoma Essential hypertension H/O cardiac pacemaker Hypertension Normally functioning cardiac pacemaker present Skin lesion of left arm Surgical History History of permanent cardiac pacemaker placement Family History Father No problems noted. Mother No problems noted. Social History Household Members: None Housing: House Do you presently have visiting nurse or other home services: No Alcohol intake: never Patient Tobacco Use Status: Never used Tobacco Second Hand Smoke Exposure: No Current occupation: right handed. Office Procedures Cardiac Device Check Cardiac Device Check Details: Date of service- 12/03/2023 ; Battery life >5 years; normal lead parameters; AP 53%; ADOLESCENT COORDINATOR 99%; no significant arrhythmias. Overall normal device function. [id number] Cardiac Device Interrogation, pacemaker Procedure code (CPT) selection complete Assessment & Plan Assessment & Plan (1) Heart block: Code(s): I45.9 - Conduction disorder, unspecified Category: Medical Plan x Coding Level of Care Code Procedure Only Diagnoses Heart block I45.9 CPT Codes Cardiac Device Check - Cardiac Device 12: [id number] Cardiac Device Interrogation, pacemaker ([id number])
== END ==
PROVIDERS: PCP Family Medicine; Visit Provider Internal Medicine
DX: I45.9 Conduction disorder, unspecified (principal); Z95.0 Presence of cardiac pacemaker
CPT/HCPCS: 93294

== ENCOUNTER 2023-12-14 14:15 | Outpatient (AMB) | payer MEDICARE, SELFPAY ==
--- NOTE | 2023-12-14 14:36 | MHC.OFFVIS ---
Vital Signs 12/14/23 14:37 Height 5 ft Weight 104 lb BMI 20.3 BP 120/68 Blood Pressure Location Lt brachial Position Sitting Pulse 62 Pulse Source Monitor Pulse Oximetry (%) 98 Oxygen Delivery Method Room Air Intake Visit Reasons: 1 year follow up w/ [facility] Allergies No Known Allergies [No Known Allergies*] Allergy (Verified 11/10/22 14:33) Medication List - Last Reconciled 12/14/23 by Raoul Flores MD carvedilol (Coreg) 25 mg PO BID lisinopril 40 mg PO DAILY HPI Comments Details: Aleln returns for follow-up regarding her pacemaker and hypertension. Overall, she is doing good. No specific cardiac complaints. Otherwise, to recall, hospitalization in 2019 where she had GI bleeding and colitis. Was transferred to [facility]. Colonoscopy had shown abnormal vascularity, erosions, erythema, ulceration etc., compatible with colitis. No recent issues. [facility] Medical History Basal cell carcinoma Skin lesion of left arm Essential hypertension Normally functioning cardiac pacemaker present Hypertension H/O cardiac pacemaker Surgical History History of permanent cardiac pacemaker placement Family History Father No problems noted. Mother No problems noted. Social History Household Members: None Housing: House Do you presently have visiting nurse or other home services: No Alcohol intake: never Patient Tobacco Use Status: Never used Tobacco Second Hand Smoke Exposure: No Current occupation: right handed. Review of Systems Const All systems reviewed & are unremarkable except as noted in HPI and below Reports as per HPI and Reports no additional complaints Eyes Reports as per HPI and Denies no additional complaints ENT Denies no additional complaints and Reports as per HPI Card Reports as per HPI, Reports no additional complaints, Denies acrocyanosis, Denies chest pain, Denies leg edema, Denies lightheadedness, Denies palpitations and Denies dyspnea Resp Reports as per HPI, Denies no additional complaints and Denies dyspnea GI Reports as per HPI and Denies no additional complaints Reports as per HPI Musc Reports no additional complaints and Reports as per HPI Skin/Breast Reports system reviewed and no additional complaints, except as documented Neuro Reports no additional complaints and Reports as per HPI Psych Reports no additional complaints and Reports as per HPI Endo Reports no additional complaints, Reports as per HPI and Denies palpitations Ruben/Lymph Reports no additional complaints and Reports as per HPI Aller/Immun Reports no additional complaints and Reports as per HPI Physical Exam Vital Signs: Last Vital Signs Pulse 62 12/14/23 14:37 BP 120/68 12/14/23 14:37 Pulse Ox 98 12/14/23 14:37 Oxygen Delivery Method Room Air 12/14/23 14:37 BMI result Body Mass Index 20.3 Const General: comfortable and no acute distress Orientation/consciousness: patient oriented x3 HEENT Other: Unremarkable Head: Yes normal to inspection Neck Neck: Yes normal visual inspection Chest Chest palpation & inspection: normal inspection of the chest Resp Auscultation: clear to auscultation bilaterally Cardio Palpation: normal PMI Heart sounds: S1 normal heart sound present, S2 normal heart sound present, no gallops, no murmurs and no rubs GI Palpation (GI): Soft to palpation Back/Spine/Pelvis Other: unremarkable Skin General skin exam: no rashes or lesions noted Neuro General: patient oriented x3 Extrem General: Yes normal to inspection Psych Mental Status: mental status grossly normal Office Procedures Cardiac Device Check Cardiac Device Check Details: Pacemaker interrogated today. Dual-chamber device, programmed in DDD mode. Battery status 5.9 years. Normal lead parameters. Atrial pacing 62%. Ventricular pacing > 99%. No significant arrhythmias. Overall, normal device function. [id number] Cardiac Device Check, pacemaker dual lead Procedure code (CPT) selection complete EKG Details: EKG with AV dual paced rhythm with ventricular rate 62/Min. 65402-[id number], Complete Assessment & Plan Assessment & Plan (1) Essential hypertension: Code(s): I10 - Essential (primary) hypertension Category: Medical Plan: Current list includes carvedilol and lisinopril. In the past, he was also on diltiazem but not in her list. She has had issues with medications including intolerance to metoprolol as well as amlodipine. Amlodipine caused leg swelling. No changes made today. 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 We will recheck in 1 year. (3) Normally functioning cardiac pacemaker present: Code(s): Z95.0 - Presence of cardiac pacemaker Category: Medical Plan: Checked today and with normal function. We can follow this remotely. Orders: Orders CA echo transthoracic complete 1 Year I77.810 - Thoracic aortic ectasia Coding Level of Care Code Est Pt Level 4 (88273) Diagnoses Essential hypertension I10 Ascending aorta dilatation I77.810 Normally functioning cardiac pacemaker present Z95.0 CPT Codes Cardiac Device Check - Cardiac Device 2: [id number]-[id number] Cardiac Device Check, pacemaker dual lead ([id number]) EKG - CPT: 89435-Dhgfhtddmhdaiaivf, Complete ([id number])
[2023-12-14 14:37] VITALS: BP 120/68; PULSE 62; O2SAT 98; BMI 20.3
== END 2023-12-14 15:00 | disposition home or self-care (01) ==
PROVIDERS: PCP Family Medicine; Visit Provider Internal Medicine
DX: I10 Essential (primary) hypertension (principal); I77.810 Thoracic aortic ectasia; Z95.0 Presence of cardiac pacemaker
CPT/HCPCS: 93010; 93280; 99214

== ENCOUNTER → 2023-12-14 14:15 | Outpatient (BNVA) | payer MEDICARE, SELFPAY | PROVIDERS: PCP Family Medicine; Visit Provider Internal Medicine | DX: Z45.018 Encounter for adjustment and management of other part of cardiac pacemaker (principal); I77.810 Thoracic aortic ectasia; I10 Essential (primary) hypertension; R94.31 Abnormal electrocardiogram [ECG] [EKG] | CPT/HCPCS: 93005; 93280; 99212 ==

== ENCOUNTER → 2024-03-03 23:59 | Outpatient (BNV) | payer MEDICARE, SELFPAY ==
--- NOTE | 2024-03-05 14:10 | A.OFFVIS_ITS ---
Intake Visit Reasons: Remote device check- [facility] Allergies No Known Allergies [No Known Allergies*] Allergy (Verified 11/10/22 14:33) [facility] Medical History Basal cell carcinoma Skin lesion of left arm Essential hypertension Normally functioning cardiac pacemaker present Hypertension H/O cardiac pacemaker Surgical History History of permanent cardiac pacemaker placement Family History Father No problems noted. Mother No problems noted. Social History Household Members: None Housing: House Do you presently have visiting nurse or other home services: No Alcohol intake: never Patient Tobacco Use Status: Never used Tobacco Second Hand Smoke Exposure: No Current occupation: right handed. 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 Overall normal device function. [id number] Cardiac Device Interrogation, pacemaker Procedure code (CPT) selection complete Assessment & Plan Assessment & Plan (1) Heart block: Code(s): I45.9 - Conduction disorder, unspecified Category: Medical Plan x Coding Level of Care Code Procedure Only Diagnoses Heart block I45.9 CPT Codes Cardiac Device Check - Cardiac Device 12: [id number] Cardiac Device Interrogation, pacemaker ([id number])
== END ==
PROVIDERS: PCP Family Medicine; Visit Provider Internal Medicine
DX: I45.9 Conduction disorder, unspecified (principal); Z95.0 Presence of cardiac pacemaker
CPT/HCPCS: 93294

== ENCOUNTER → 2024-05-17 14:14 | Outpatient (BNVA) | payer OTHER, SELFPAY | PROVIDERS: PCP Family Medicine; Visit Provider Registered Nurse | DX: S81.812A Laceration without foreign body, left lower leg, initial encounter (principal); W20.8XXA Other cause of strike by thrown, projected or falling object, initial encounter | CPT/HCPCS: 99202 ==

== ENCOUNTER → 2024-05-24 14:21 | Outpatient (BNVA) | payer OTHER, SELFPAY | PROVIDERS: PCP Family Medicine; Visit Provider Registered Nurse | DX: S81.812A Laceration without foreign body, left lower leg, initial encounter (principal); W20.8XXA Other cause of strike by thrown, projected or falling object, initial encounter; L08.9 Local infection of the skin and subcutaneous tissue, unspecified | CPT/HCPCS: 99213 ==

== ENCOUNTER 2024-06-01 09:46 | Outpatient (REF) | payer MEDICARE, SELFPAY ==
[2024-06-01 10:24] LABS: MANUAL DIFF FLAG NO
[2024-06-01 10:48] LABS: Basophils Percent Auto 0.4 % (0-2); Eosinophils Absolute Auto 0.2 X10*3/uL (0.0-0.4); Eosinophils Percent Auto 2.2 % (0-4); Hematocrit 31.2 % (37.0-47.0); Hemoglobin 10.5 g/dl (12.0-16.0); Imm Gran Abs Auto 0.02 X10*3/uL (0.00-0.03); Imm Gran Pct Auto 0.3 % (0.0-0.4); Lymphocytes Percent Auto 28.8 % (20-40); Mean Corpuscular HGB Conc 33.7 g/dl (31.0-35.0); Mean Corpuscular Hemoglobin 28.9 pg (27.0-33.0); Mean Platelet Volume 11.4 fL (9.4-12.3); Monocytes Absolute Auto 0.6 X10*3/uL (0.1-1.2); Monocytes Percent Auto 8.1 % (2-11); Neutrophils Absolute Auto 4.1 x10*3/uL (2.0-8.3); Neutrophils Percent Auto 60.2 % (45-73); Platelet Count 109 X10*3/uL (160-400); Red Blood Count 3.63 X10*6/uL (4.20-5.50); Red Cell Distribution Width 13.5 % (11.0-16.0); White Blood Count 6.9 X10*3/uL (4.8-10.8)
[2024-06-01 11:40] LABS: Anion Gap 12 (12-20); Blood Urea Nitrogen 19 mg/dL (9-16); Carbon Dioxide 26 mmol/L (22-29); Chloride 107 mmol/L (96-108); Estimated Glomerular Filt Rate > 60; Sodium 141 mmol/L (135-145)
== END 2024-06-01 09:47 | disposition home or self-care (01) ==
LOC: HO.LAB 09:46
PROVIDERS: PCP Family Medicine; Visit Provider Family Medicine
DX: D46.9 Myelodysplastic syndrome, unspecified (principal); I10 Essential (primary) hypertension
CPT/HCPCS: 36415; 80051; 82565; 84520; 85025

== ENCOUNTER → 2024-06-02 23:59 | Outpatient (BNV) | payer MEDICARE, SELFPAY ==
--- NOTE | 2024-06-05 19:09 | A.OFFVIS_ITS ---
Intake Visit Reasons: Remote Device Check- [facility] Allergies No Known Allergies [No Known Allergies*] Allergy (Verified 11/10/22 14:33) [facility] Medical History Basal cell carcinoma Skin lesion of left arm Essential hypertension Normally functioning cardiac pacemaker present Hypertension H/O cardiac pacemaker Surgical History History of permanent cardiac pacemaker placement Family History Father No problems noted. Mother No problems noted. Social History Household Members: None Housing: House Do you presently have visiting nurse or other home services: No Alcohol intake: never Patient Tobacco Use Status: Never used Tobacco Second Hand Smoke Exposure: No Current occupation: right handed. Office Procedures Cardiac Device Check Cardiac Device Check Details: Date of service- 06/02/2024 ; Battery life >5 years; normal lead parameters; AP 58%; [employer]ACH 97%; no significant arrhythmias. Overall normal device function. [id number]-[id number] Cardiac Device Interrogation, pacemaker Procedure code (CPT) selection complete Assessment & Plan Assessment & Plan (1) Normally functioning cardiac pacemaker present: Code(s): Z95.0 - Presence of cardiac pacemaker Category: Medical (2) Heart block: Code(s): I45.9 - Conduction disorder, unspecified Category: Medical Plan x Coding Level of Care Code Procedure Only Diagnoses Normally functioning cardiac pacemaker present Z95.0 Heart block I45.9 CPT Codes Cardiac Device Check - Cardiac Device 12: [id number]-[id number] Cardiac Device Interrogation, pacemaker ([id number])
== END ==
PROVIDERS: PCP Family Medicine; Visit Provider Internal Medicine
DX: I45.9 Conduction disorder, unspecified (principal); Z95.0 Presence of cardiac pacemaker
CPT/HCPCS: 93294

== ENCOUNTER 2024-08-24 17:24 | Emergency (ER) | payer MEDICARE, SELFPAY ==
--- NOTE | ~2024-08-24 | CT_ITS ---
CLINICAL HISTORY: unsteady gate CT head without contrast Comparison: CT/SC - CT HEAD/BRAIN WO CON - 05/13/20 12:47 EDT Findings: There is cytotoxic edema in the left inferomedial cerebellar hemisphere consistent with a subacute infarct. There is effacement of the 4th ventricle due to the edema. The lateral ventricles and 3rd ventricle are within normal limits in size and stable. There is no acute intracranial hemorrhage. There is mild generalized cerebral atrophy. The visualized portions of the orbits, paranasal sinuses, and mastoids are unremarkable. No fractures are identified. IMPRESSION: 1. Subacute left cerebellar infarct. 2. Effacement of the 4th ventricle due to edema within the infarct. No hydrocephalus at this time. This document has been electronically signed by: Rogerio Swartz MD on 08/25/2024 03:35:42
[2024-08-24 17:31] VITALS: BP 216/112; PULSE 73; RESP 18; TEMP 37.1; O2SAT 98; BMI 17.8
[2024-08-24 17:51] LABS: Mean Corpuscular Volume 83.5 fL (80.0-98.0); PLT CLUMP 1; SCAN SMEAR FLAG 1
[2024-08-24 17:53] LABS: Basophils Percent Auto 0.4 % (0-2); Eosinophils Absolute Auto 0.1 X10*3/uL (0.0-0.4); Eosinophils Percent Auto 1.3 % (0-4); Hematocrit 35.3 % (37.0-47.0); Imm Gran Abs Auto 0.02 X10*3/uL (0.00-0.03); Imm Gran Pct Auto 0.2 % (0.0-0.4); Lymphocytes Absolute Auto 1.4 X10*3/uL (1.2-4.9); Lymphocytes Percent Auto 16.3 % (20-40); MANUAL DIFF FLAG SCAN; Mean Corpuscular Hemoglobin 28.4 pg (27.0-33.0); Mean Platelet Volume 10.5 fL (9.4-12.3); Monocytes Absolute Auto 0.5 X10*3/uL (0.1-1.2); Monocytes Percent Auto 6.2 % (2-11); Neutrophils Absolute Auto 6.3 x10*3/uL (2.0-8.3); Neutrophils Percent Auto 75.6 % (45-73); Red Blood Count 4.23 X10*6/uL (4.20-5.50); Red Cell Distribution Width 13.3 % (11.0-16.0)
[2024-08-24 17:56] VITALS: BP 212/94; PULSE 68; O2SAT 97
--- NOTE | 2024-08-24 18:00 | ED_ITS ---
HPI - Nausea/Vomiting/Diarrhea General Chief complaint: Nausea/Vomiting/Diarrhea Stated complaint: N/V,DIZZY, HTN 202/105* Time Seen by Provider: 08/24/24 17:45 Source: patient Mode of arrival: ambulatory Limitations: no limitations History of Present Illness ED Provider: Dr. Dominique Coy HPI Narrative: Patient comes to the emergency room complaining of nausea and vomiting starting this morning. Patient states that everything that she eats she vomits immediately. Patient denies diarrhea, denies abdominal pain. Patient states that for about a week she has been feeling a bit lightheaded, uncomfortable, but has not had any falls, no chest pain or shortness of breath, no vomiting until today. Patient states that because of the nausea she has been unable to take her medications. MD elicited complaint: nausea and vomiting Related Data Previous Rx's ?Medication ?Instructions ?Recorded lisinopril 40 mg tablet 40 mg PO DAILY #30 tabs 02/13/21 carvedilol 25 mg tablet 25 mg PO BID #180 tabs 12/31/23 doxycycline hyclate 100 mg capsule 100 mg PO BID 10 days #20 caps 05/17/24 ondansetron 4 mg disintegrating 4 mg PO Q6H PRN nausea and 08/25/24 tablet vomiting #14 tabs Allergies Allergy/AdvReac Type Severity Reaction Status Date / Time No Known Allergies Allergy Verified 08/24/24 17:32 [No Known Allergies*] Review of Systems 2 Review of Systems: Constitutional : No Weight loss, No Fever, No Chills, No Night Sweats, No Fatigue, No Malaise ENT/Mouth : No Hearing loss, No Ear Pain, No Nasal Congestion, No Sinus Pain, No Hoarseness, No sore throat, No Rhinorrhea, No Swallowing Difficulty Eyes: No Eye Pain, No Swelling, No Redness, No Foreign Body, No Discharge, No Vision Changes Cardiovascular : No Chest Pain, No SOB, No Dyspnea on Exertion, No Orthopnea, No Edema, No Palpitations Respiratory : No Cough, No Sputum, No Wheezing, No Smoke Exposure, No Dyspnea Gastrointestinal : Complaining of nausea and vomiting, No Diarrhea, No Constipation, No abdominal Pain, No Hematochezia, No Melena Genitourinary : no irregular bleeding, No Dysuria, No Urinary Frequency, No Hematuria, No Urinary Incontinence, No Urgency, No Flank Pain, No Urinary Flow Changes, No Hesitancy Musculoskeletal : No joint pain, No Myalgias, No Joint Swelling Skin : No Skin Lesions, No rash Neuro : No Weakness, No Numbness, No Paresthesias, No Loss of Consciousness, complaining of feeling lightheaded, no spinning, Psych : No Anxiety/Panic, No Depression, No SI/HI/AH/VH, No Social Issues, Heme/Lymph: No Bruising, No Bleeding,No Lymphadenopathy Endocrine : No Polyuria, No Polydipsia, No Temperature Intolerance [facility] Past Medical History Medical History Basal cell carcinoma Skin lesion of left arm Essential hypertension Normally functioning cardiac pacemaker present Hypertension H/O cardiac pacemaker Surgical History History of permanent cardiac pacemaker placement Family History Family History Father No problems noted. Mother No problems noted. Social History Social History Household Members: None Housing: House Do you presently have visiting nurse or other home services: No Alcohol intake: never Patient Tobacco Use Status: Never used Tobacco Smoked in Last 30 Days: No Second Hand Smoke Exposure: No Use of substances other than those prescribed or required for medical reasons: No Advance Directives: No Advance Directives Information Provided: No Do you have a plan to hurt others: No Plan Current occupation: right handed. Physical Exam 2 Vital Signs: Vital Signs: Last Vital Signs Temp 98.4 F 08/24/24 23:14 Pulse 73 08/24/24 23:14 Resp 21 H 08/24/24 23:14 BP 171/85 H 08/24/24 23:14 Pulse Ox 95 08/24/24 23:14 O2 Del Method Room Air 08/24/24 23:14 BMI result Body Mass Index 17.8 Const: Other: Appearance: Alert. Oriented X3. No acute distress. Eyes: Pupils equal, round and reactive to light. ENT: Pharynx normal. Dry mucous membranes Neck: Normal inspection. Neck supple. No lymph nodes noted. No crepitus CVS: Normal heart rate and rhythm. Pulses normal. Normal S1 and S2 Respiratory: No respiratory distress. Breath sounds normal. No Wheezing. No rales Abdomen: Soft and nontender. No rigidity. No distention. Skin: Skin warm and dry. Normal skin color. Normal skin turgor. Extremities: No lower extremity edema. No Lacerations. No Rash Neuro: Oriented X 3. No motor deficit. No sensory deficit. Moving all extremities. No slurred speech. CN 2 through 12 grossly intact Psych: calm, cooperative, normal affect Course Course Course Narrative: Patient's seems dehydrated. Patient receiving IV fluids, Zofran. Of patient's labs pending Medications Administered Discontinued Medications Generic Name Dose Route Start Last Admin Trade Name Freq PRN Reason Stop Dose Admin Lactated Ringer's 2,000 mls @ 999 mls/hr 08/24/24 20:15 08/24/24 22:11 Lr IV 08/24/24 22:15 Infused .Q2H1M MAJO Infusion Ondansetron HCl 4 mg 08/24/24 20:05 08/24/24 20:17 Ondansetron Hcl 4 Mg/2 Ml Vial IVPUSH 08/24/24 20:06 4 mg ONCE ONE Administration Medical Decision Making Medical Decision Making [facility] Narrative: My interpretation of labs, normal white blood cell count, no significant abnormality in hematology, normal chemistry, urinalysis negative Here in the emergency room, patient has not had any episodes of nausea vomiting or diarrhea. Patient received 2 L of IV fluids Orthostatic vitals were negative Patient denies any dizziness, denies chest pain or shortness of breath, no room spinning. However, when patient walks, she trips withdrawal feet. Patient states that she would like to go home. After discussing with the patient that she lives alone and she is a high risk of falls and injuries, patient agreeable to stay until tomorrow for a PT/case management consult pending Sign out given to my colleague Dr. Hutchins Differential Diagnosis Differential Diagnoses: The differential diagnosis associated with the presentation includes (Dehydration, UTI, enteritis viral illness) Admission/Observation Consideration of admission/observation: Escalation of care including admission/observation considered (Given patient's age and weakness, observation was considered) Lab Data [facility] Lab Attestation statement: I reviewed the patient's lab results. 08/24/24 17:45 08/24/24 17:45 Labs: Lab Results 08/24/24 08/24/24 Range/Units 17:45 22:10 WBC 8.3 (4.8-10.8) X10*3/uL RBC 4.23 (4.20-5.50) X10*6/uL Hgb 12.0 (12.0-16.0) g/dl Hct 35.3 L (37.0-47.0) % MCV 83.5 (80.0-98.0) fL MCH 28.4 (27.0-33.0) pg MCHC 34.0 (31.0-35.0) g/dl RDW 13.3 (11.0-16.0) % Plt Count 102 L (160-400) X10*3/uL MPV 10.5 (9.4-12.3) fL Immature Gran % (Auto) 0.2 (0.0-0.4) % Neut % (Auto) 75.6 H (45-73) % Lymph % (Auto) 16.3 L (20-40) % Charles % (Auto) 6.2 (2-11) % Eos % (Auto) 1.3 (0-4) % Baso % (Auto) 0.4 (0-2) % Lymph # (Auto) 1.4 (1.2-4.9) X10*3/uL Charles # (Auto) 0.5 (0.1-1.2) X10*3/uL Eos # (Auto) 0.1 (0.0-0.4) X10*3/uL Baso # (Auto) 0.0 (0.0-0.2) X10*3/uL Abs Immat Gran (auto) 0.02 (0.00-0.03) X10*3/uL Absolute Neuts (auto) 6.3 (2.0-8.3) x10*3/uL Absolute Nucleated RBC 0.000 (0.0-0.012) X10*3/uL Nucleated RBC % (auto) 0.0 (0.0-0.2) /100WBC Smear Tech's Comments VERIFIED Sodium 139 (135-145) mmol/L Potassium 3.4 (3.3-5.1) mmol/L Chloride 107 (96-108) mmol/L Carbon Dioxide 25 (22-29) mmol/L Anion Gap 10 L (12-20) BUN 20 H (9-16) mg/dL Creatinine 0.80 (0.5-1.4) mg/dL Estim Creat Clear Calc 35.6 Estimated GFR > 60 Random Glucose 124 H (60-115) mg/dL Calcium 9.4 (8.4-10.2) mg/dL Magnesium 1.8 (1.6-2.6) mg/dL Total Bilirubin 0.5 (0.0-1.0) mg/dL Direct Bilirubin 0.1 (0.0-0.5) mg/dL AST 29 (5-31) U/L ALT 12 (0-31) U/L Alkaline Phosphatase 102 (39-117) U/L Total Protein 7.2 (6.5-8.0) g/dL Albumin 4.1 (3.5-5.0) g/dL Lipase 12 (8-78) U/L Urine Color Yellow Urine Appearance Clear Urine pH 6.0 (5.0-9.0) Ur Specific [place]wood 1.015 (1.005-1.025) Urine Protein Negative (Neg-Trace) mg/dL Urine Glucose (UA) Negative (Negative) mg/dL Urine Ketones 40 (Negative) mg/dL Urine Blood Trace H (Negative) Urine Nitrite Negative (Negative) Ur Leukocyte Esterase Negative (Negative) Urine RBC 0-2 (0-2) /HPF Urine WBC 0-5 (0-5) /HPF Ur Squamous Epith Cells 0-2 (0-2) /HPF Urine Bacteria None Seen (None Seen) Hyaline Casts 0-2 (0-2) /LPF Critical Care Time Critical Care Time Critical Care Time: Yes Total Critical Care Time: 35 Attestation: I have personally provided critical care time. Time includes review of lab data, radiology results, discussion with consultants, and monitoring for potential decompensation. Intervention performed as documented. Discharge Plan Discharge Clinical Impression: Viral illness, Nausea & vomiting, Dehydration, Drug-induced nausea and vomiting Patient Disposition: Still a Patient Instructions: Dehydration (ED), Acute Nausea and Vomiting (ED), Viral Syndrome (ED) Additional Instructions: Please follow-up with your primary care physician tomorrow. If you have any worsening or new symptoms, please return to the emergency room or call 911 Prescriptions: New ondansetron 4 mg tablet,disintegrating 4 mg PO Q6H PRN (Reason: nausea and vomiting) Qty: 14 0RF No Action lisinopril 40 mg tablet 40 mg PO DAILY Qty: 30 0RF carvedilol 25 mg tablet 25 mg PO BID Qty: 180 3RF doxycycline hyclate 100 mg capsule 100 mg PO BID 10 Days Qty: 20 0RF Print Language: Yakut
[2024-08-24 18:15] LABS: Alanine Aminotransferase 12 U/L (0-31); Albumin Level 4.1 g/dL (3.5-5.0); Alkaline Phosphatase 102 U/L (39-117); Anion Gap 10 (12-20); Aspartate Amino Transferase 29 U/L (5-31); Bilirubin Direct 0.1 mg/dL (0.0-0.5); Blood Urea Nitrogen 20 mg/dL (9-16); Calcium 9.4 mg/dL (8.4-10.2); Carbon Dioxide 25 mmol/L (22-29); Chloride 107 mmol/L (96-108); Creatinine Clr Calc Pharmacy 35.6; Estimated Glomerular Filt Rate > 60; Glucose Random 124 mg/dL (60-115); Lipase 12 U/L (8-78); Magnesium 1.8 mg/dL (1.6-2.6); Potassium 3.4 mmol/L (3.3-5.1); Sodium 139 mmol/L (135-145); Total Protein 7.2 g/dL (6.5-8.0)
[2024-08-24 18:30] LABS: Bilirubin Total 0.5 mg/dL (0.0-1.0)
[2024-08-24 18:34] LABS: Platelet Count 102 X10*3/uL (160-400); SLIDE REVIEW VERIFIED; White Blood Count 8.3 X10*3/uL (4.8-10.8)
[2024-08-24 19:22] VITALS: BP 174/86; BP 179/96; BP 180/86; PULSE 61; PULSE 70; PULSE 74
[2024-08-24 20:00] VITALS: BP 164/83; PULSE 64; RESP 18; O2SAT 96
[2024-08-24] MEDS: Lactated Ringers 2,000 ML 999 ML IV (20:10)
[2024-08-24] MEDS: ondansetron HCL 4 MG/2 ML VIAL IVPUSH (20:17)
[2024-08-24 22:00] VITALS: BP 190/79; PULSE 68; RESP 19; O2SAT 97
[2024-08-24 22:30] LABS: Appearance Urine Clear; Color Urine Yellow; Glucose Urine UA Negative (Negative); Leukocyte Esterase Urine Negative (Negative); Nitrite Urine Negative (Negative); Specific Gravity - Urine 1.015 (1.005-1.025); UMIC TRIGGER UACC YES; Urine Blood Trace (Negative); Urine Ketones 40 mg/dL (Negative); Urine Protein Negative (Neg-Trace)
[2024-08-24 22:36] LABS: Bacteria Urine None Seen (None Seen); Hyaline Casts Urine 0-2 /LPF (0-2); RBC Urine 0-2 /HPF (0-2); Squamous Epithelial Cell Urine 0-2 /HPF (0-2); WBC Urine 0-5 /HPF (0-5)
[2024-08-24 23:14] VITALS: BP 171/85; PULSE 73; RESP 21; TEMP 36.9; O2SAT 95
--- NOTE | 2024-08-25 00:21 | PC.NURSE ---
alert/oriented, resting comfortably, states condition improved. moves all extremities well. waiting for dispo.
[2024-08-25 02:00] VITALS: BP 176/86; PULSE 74; RESP 20; O2SAT 98
--- NOTE | 2024-08-25 02:20 | PC.NURSE ---
assisted with ambulation; unsteady in hallway. no nausea/dyspnea. ED attending made aware of results. assisted back to bed without incident. pt agreeable with plan for PT eval in AM.
[2024-08-25 02:36] VITALS: BP 176/86; PULSE 74
[2024-08-25] MEDS: lisinopriL 40 MG TABLET PO (02:36)
[2024-08-25] MEDS: carvediloL 25 MG TABLET PO (02:36)
--- NOTE | 2024-08-25 02:45 | PC.NURSE ---
CT head requested by this RN for continued unsteady gait and dizziness, ordered by MD Coy. Pt remains A&Ox3 skin pwd respirations even unlabored, neuros intact. Denies nausea, no vomiting since prior to change of shift. Awaiting CT scan, pt aware of plan of care.
[2024-08-25 03:13] VITALS: BP 136/57; PULSE 70; RESP 22; O2SAT 94
[2024-08-25 03:15] VITALS: BP 136/57; PULSE 68; RESP 18; O2SAT 95
--- NOTE | 2024-08-25 03:45 | PC.NURSE ---
CT significant for subacute stroke, results called into Dr. Hutchins, no new orders at this time. Plan for admission.
--- NOTE | 2024-08-25 03:55 | PC.NURSE ---
Daughter Tierra updated on plan of care with pt consent.
--- NOTE | 2024-08-25 04:34 | PC.NURSE ---
Pt to be transferred to [facility] for ICU level of care per neurologist. Awaiting transfer, daughter again updated on plan of care.
[2024-08-25] MEDS: Aspirin 325 MG TABLET PO (04:48)
--- NOTE | 2024-08-25 05:42 | PC.NURSE ---
report given to Jefe at [facility]. pt admitted to [facility] RM 9.
[2024-08-25 06:40] VITALS: BP 137/67; PULSE 76; RESP 18; TEMP 36.5; O2SAT 96
--- NOTE | 2024-08-25 08:01 | MHC.CM.ED ---
Received case management consult overnight. Patient transferred to [facility] before being seen by case management.
== END 2024-08-25 06:42 | disposition short-term general hospital (02) ==
PROVIDERS: Emergency Medicine; Emergency Provider Emergency Medicine Emergency Medical Services; PCP Family Medicine
DX: R11.2 Nausea with vomiting, unspecified (principal); E86.0 Dehydration; R42 Dizziness and giddiness; I10 Essential (primary) hypertension; B34.9 Viral infection, unspecified; R26.81 Unsteadiness on feet; Z79.899 Other long term (current) drug therapy
CPT/HCPCS: 36415; 70450; 80053; 81001; 82248; 83690; 83735; 85025; 96361; 96374; 99285; J2405; J7120

== ENCOUNTER → 2024-08-25 02:19 | Outpatient (BNV) | payer MEDICARE, SELFPAY | PROVIDERS: Emergency Provider Emergency Medicine Emergency Medical Services; PCP Family Medicine; Visit Provider Radiology Diagnostic Radiology | DX: I63.542 Cerebral infarction due to unspecified occlusion or stenosis of left cerebellar artery (principal) | CPT/HCPCS: 70450 ==

== ENCOUNTER 2024-09-19 10:36 | Outpatient (REF) | payer MEDICARE, SELFPAY ==
--- OUTSIDE RECORDS SUMMARY | 2024-09-19 11:33 | XMS_ITS | Patient Health Record ---
Author Organization [facility] Address [address] [place] [address] Care Team Providers Care Supervisor Coil Winding Name Role Phone Basil NAZARIO, Zana Primary Care Provider Unavailab Xavier Vidal Jr Unavailable [phone] SEA CREWS Unavailable Unavailable ALLERGIES Allergen (clinical drug ingredient) Drug/Non Drug Allergy documented on EMR Reaction Allergy Type Onset Date Status metronidazole Flagyl Unknown Drug Allergy Act cristofer REASON FOR REFERRAL No Information MEDICATIONS Medication SIG (Take, Route, Fr equency, Duration) Notes Start Date End Date Status Carvedilol 25 MG 1 tablet with food O rally Twice a day Active Lisinopril 40 MG 1 tablet Orally Once a day Active SOCIAL HISTORY Tobacco Use: Social History Observation Description Date Details (start date - stop date) Never Smoker NA - NA Sex Assigned At : Social History Observation Description Sex Assigned At Unknown Tobacco Use/Smoking Question Answer Notes Patient is a nonsmoker Alcohol Screen Question Answer Notes Did you have a drink containing alcohol in the p ast year? No Points 0 Interpretation Negative PROBLEMS Problem Type ICD Code Onset Dates Problem Status W/U Status Risk SNOMED Code Notes Problem Ischemic colitis (K55.9) Active confirmed 05219454 Problem Abdominal pain, unspecified abdominal location (R10.9) Active confirmed 06897930 Problem Diarrhea, unspecified type (R19.7) Active confirmed [id number] PLAN OF TREATMENT No Information Insurance Providers Payer Name Payer Address Payer Phone Subscriber Number Group Number Insured Name Patient Relationship to Insured Coverage Start Date Coverage End Date MEDICARE OF [place] [address] [place] [id number] [phone] [id number] STONE ANDERSON Self - patient is the insured MEDEX ATTN CLAIMS [address] [place] [address] [id number] TRACI Méndez ESTELLEPETE Self - patient is the insured MEDICAL (GENERAL) HISTORY Medical History History ICD Code 02/2020 complete heart block/ pace maker hypertension diverticulitis ischemic colitis GI bleed history of anemia and thrombocytopenia- Dr. Poole [place] Surgical History Surgery Date(Month/Year) pace maker 02/2020
[2024-09-19 12:47] LABS: MANUAL DIFF FLAG NO
[2024-09-19 12:50] LABS: Basophils Absolute Auto 0.1 X10*3/uL (0.0-0.2); Basophils Percent Auto 0.6 % (0-2); Eosinophils Absolute Auto 0.2 X10*3/uL (0.0-0.4); Eosinophils Percent Auto 2.7 % (0-4); Hemoglobin 10.3 g/dl (12.0-16.0); Imm Gran Abs Auto 0.08 X10*3/uL (0.00-0.03); Lymphocytes Absolute Auto 2.1 X10*3/uL (1.2-4.9); Lymphocytes Percent Auto 26.7 % (20-40); Mean Corpuscular HGB Conc 32.2 g/dl (31.0-35.0); Mean Corpuscular Hemoglobin 27.8 pg (27.0-33.0); Mean Corpuscular Volume 86.3 fL (80.0-98.0); Mean Platelet Volume 10.8 fL (9.4-12.3); Monocytes Absolute Auto 0.5 X10*3/uL (0.1-1.2); Monocytes Percent Auto 5.6 % (2-11); Neutrophils Absolute Auto 5.1 x10*3/uL (2.0-8.3); Neutrophils Percent Auto 63.4 % (45-73); Platelet Count 184 X10*3/uL (160-400); Red Blood Count 3.71 X10*6/uL (4.20-5.50); Red Cell Distribution Width 13.4 % (11.0-16.0)
[2024-09-19 13:02] LABS: Alanine Aminotransferase 11 U/L (0-31); Albumin Level 3.7 g/dL (3.5-5.0); Alkaline Phosphatase 88 U/L (39-117); Anion Gap 12 (12-20); Aspartate Amino Transferase 20 U/L (5-31); Bilirubin Total 0.2 mg/dL (0.0-1.0); Blood Urea Nitrogen 21 mg/dL (9-16); Carbon Dioxide 26 mmol/L (22-29); Chloride 108 mmol/L (96-108); Estimated Glomerular Filt Rate > 60; Glucose Random 95 mg/dL (60-115); Potassium 4.3 mmol/L (3.3-5.1); Sodium 142 mmol/L (135-145); Total Protein 6.8 g/dL (6.5-8.0)
== END 2024-09-19 10:37 | disposition home or self-care (01) ==
LOC: HO.10HDL 10:36
PROVIDERS: Visit Provider Family Medicine
DX: R63.4 Abnormal weight loss (principal); R27.0 Ataxia, unspecified; R19.7 Diarrhea, unspecified; C34.90 Malignant neoplasm of unspecified part of unspecified bronchus or lung
CPT/HCPCS: 36415; 80053; 84134; 85025

== ENCOUNTER → 2024-12-01 23:59 | Outpatient (BNV) | payer MEDICARE, SELFPAY ==
--- NOTE | 2024-12-06 20:30 | MHC.OFFVIS ---
Intake Visit Reasons: Remote device check- [facility] Allergies No Known Allergies [No Known Allergies*] Allergy (Verified 08/24/24 17:32) [facility] Medical History Basal cell carcinoma Skin lesion of left arm Essential hypertension Normally functioning cardiac pacemaker present Hypertension H/O cardiac pacemaker Surgical History History of permanent cardiac pacemaker placement Family History Father No problems noted. Mother No problems noted. Social History Household Members: None Housing: House Do you presently have visiting nurse or other home services: No Alcohol intake: never Patient Tobacco Use Status: Never used Tobacco Second Hand Smoke Exposure: No Current occupation: right handed. Office Procedures Cardiac Device Check Cardiac Device Check Details: Date of service- 12/01/2024 ; Battery life >4 years; normal lead parameters; AP 29%; ELECTRICIAN LOCOMOTIVE >99%; no significant arrhythmias. Overall normal device function. [id number] Cardiac Device Interrogation, pacemaker Procedure code (CPT) selection complete Assessment & Plan Assessment & Plan (1) Normally functioning cardiac pacemaker present: Code(s): Z95.0 - Presence of cardiac pacemaker Category: Medical (2) Heart block: Code(s): I45.9 - Conduction disorder, unspecified Category: Medical Plan x Coding Level of Care Code Procedure Only Diagnoses Normally functioning cardiac pacemaker present Z95.0 Heart block I45.9 CPT Codes Cardiac Device Check - Cardiac Device 12: 74317-[id number] Cardiac Device Interrogation, pacemaker ([id number])
== END ==
PROVIDERS: PCP Family Medicine; Visit Provider Internal Medicine
DX: I45.9 Conduction disorder, unspecified (principal); Z95.0 Presence of cardiac pacemaker
CPT/HCPCS: 93294

== ENCOUNTER 2025-01-03 14:40 | Outpatient (AMB) | payer MEDICARE, SELFPAY ==
--- OUTSIDE RECORDS SUMMARY | 2025-01-03 14:43 | XMS_ITS | Patient Health Record ---
Author Organization [facility] Address [address] [place] [address] Care Team Providers Care Director Distribution Name Role Phone Basil NAZARIO, Zana Primary Care Provider Unavailab Xavier Vidal Jr Unavailable SEA CREWS Unavailable Unavailable Allergies Allergen (clinical drug ingredient) Drug/Non Drug Allergy documented on EMR Reaction Allergy Type Onset Date Status metronidazole Flagyl Unknown Drug Allergy Act cristofer Reason For Referral No Information Medications Medication SIG (Take, Route, Fr equency, Duration) Notes Start Date End Date Status Carvedilol 25 MG 1 tablet with food O rally Twice a day Active Lisinopril 40 MG 1 tablet Orally Once a day Active Social History Tobacco Use: Social History Observation Description Date Details (start date - stop date) Never Smoker NA - NA Tobacco Use/Smoking Question Answer Notes Patient is a nonsmoker Alcohol Screen Question Answer Notes Did you have a drink containing alcohol in the p ast year? No Points 0 Interpretation Negative Problems Problem Type SNOMED Code ICD Code Onset Dates Problem Status W/U Status Risk Notes Problem [id number] Abdominal pain, unspecified abdominal location (R10.9) Active confirmed Problem [id number] Diarrhea, unspecified type (R19.7) Active confirmed Problem [id number] Ischemic colitis (K55.9) Active confirmed Plan Of Treatment No Information Insurance Providers Payer Name Payer Address Payer Phone Subscriber Number Group Number Insured Name Patient Relationship to Insured Coverage Start Date Coverage End Date MEDICARE OF [place] [address] [place] [address] [id number] STONE ANDERSON Self - patient is the insured MEDEX ATTN CLAIMS [address] [place] [address] [id number] STONE ANDERSON Self - patient is the insured Medical (General) History Medical History History ICD Code 02/2020 complete heart block/ pace maker hypertension diverticulitis ischemic colitis GI bleed history of anemia and thrombocytopenia- Dr. Zulema skaggs Surgical History Surgery Date(Month/Year) pace maker 02/2020
--- NOTE | 2025-01-03 14:50 | MHC.OFFVIS ---
Vital Signs 01/03/25 14:51 Height 5 ft 3 in Weight 97 lb 7.109 oz BMI 17.3 BP 174/78 H Blood Pressure Location Lt brachial Position Sitting Pulse 63 Pulse Source Monitor Intake Visit Reasons: 1 yr f/up Automotive Vehicle Inspector Required: No Allergies No Known Allergies [No Known Allergies*] Allergy (Verified 01/03/25 14:52) Medication List - Last Reconciled 01/03/25 by Raoul Flores MD apixaban (Eliquis) 5 mg PO BID carvedilol 6.25 mg PO BID doxycycline hyclate 100 mg PO BID 10 days ferrous sulfate (FeroSul) mg PO lisinopril 10 mg PO DAILY lisinopril 10 mg PO DAILY ondansetron 4 mg PO Q6H PRN osimertinib (Tagrisso) 80 mg PO DAILY HPI Comments Details: Allen returns for follow-up regarding her pacemaker and hypertension. In August 2024, it seems that she was diagnosed with a cerebellar infarct and in that setting, lung masses concerning for malignancy. Around that time, it seems that her blood pressure meds were cut back. She was previously on carvedilol 25 mg b.i.d. but now only taking 6.25 mg b.i.d.. Lisinopril dose has been cut back from 40 mg to 10 mg. It seems that she might have had some blood pressure issues around that time. Today's blood pressure is indeed quite high. Blood pressure med changes may be the reason. Otherwise, she herself has no clear-cut concerns. She states she feels well and does not have any angina or shortness of breath. She is on chemotherapy for lung cancer. [facility] Medical History Basal cell carcinoma Skin lesion of left arm Essential hypertension Normally functioning cardiac pacemaker present Hypertension H/O cardiac pacemaker Surgical History History of permanent cardiac pacemaker placement Family History Father No problems noted. Mother No problems noted. Social History Household Members: None Housing: House Do you presently have visiting nurse or other home services: No Alcohol intake: never Patient Tobacco Use Status: Never used Tobacco Second Hand Smoke Exposure: No Current occupation: right handed. Review of Systems ENT Reports dizziness Card Denies chest pain, Denies chest pain at rest, Denies chest pain with activity, Denies rapid heart rate, Denies pedal edema, Denies edema, Denies leg edema, Denies lightheadedness, Denies palpitations, Denies dyspnea, Denies dyspnea on exertion and Denies orthopnea Resp Denies cough, Denies dyspnea and Denies dyspnea on exertion GI Denies hematochezia and Denies change in stool character Musc Denies abnormal gait, Reports limited range of motion, Reports muscle cramps, Denies muscle weakness, Denies numbness, Denies radiating pain into limb, Denies stiffness and Denies tingling Neuro Denies abnormal gait, Reports dizziness, Denies numbness and Denies tingling Endo Denies palpitations Physical Exam Vital Signs: Last Vital Signs Pulse 63 01/03/25 14:51 BP 174/78 H 01/03/25 14:51 BMI result Body Mass Index 17.3 Const General: comfortable and no acute distress Orientation/consciousness: patient oriented x3 HEENT Other: Unremarkable Head: Yes normal to inspection Neck Neck: Yes normal visual inspection Chest Chest palpation & inspection: normal inspection of the chest Resp Auscultation: clear to auscultation bilaterally Cardio Palpation: normal PMI Heart sounds: S1 normal heart sound present, S2 normal heart sound present, no gallops, no murmurs and no rubs GI Palpation (GI): Soft to palpation Back/Spine/Pelvis Other: unremarkable Skin General skin exam: no rashes or lesions noted Neuro General: patient oriented x3 Extrem General: Yes normal to inspection Psych Mental Status: mental status grossly normal Assessment & Plan Assessment & Plan (1) Essential hypertension: Code(s): I10 - Essential (primary) hypertension Category: Medical Plan: Her previous dose was carvedilol 25 mg b.i.d. but currently only 6.25 mg b.i.d.. Lisinopril dose was also 40 mg in the past but currently 10 mg. Blood pressure is indeed quite high. We will need to go up on the doses-changed to carvedilol 12.5 mg b.i.d. and lisinopril 20 mg daily. If this is tolerable, then we can go up to the full doses as before. Previously, leg swelling from amlodipine. (2) Cardiomyopathy: Code(s): I42.9 - Cardiomyopathy, unspecified Category: Medical Plan: In the recent [facility] echocardiogram, LVEF is 45-50% with reduced LV strain. Moderate mitral and tricuspid regurgitation. In the previous study from August, LVEF is 55%. Drop in LVEF could be from poorly controlled hypertension. Pacing induced cardiomyopathy is also possible. Some components of valvular disease. Less likely chemotherapy. May recheck in 3 months or so. 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 No specific implications. (4) Stroke: Code(s): I63.9 - Cerebral infarction, unspecified Category: Medical Plan: Per notes, left cerebellar infarct involving left peak of. It seems that per neurology recommendations she was put on Eliquis- due to concurrent malignancy. (5) Normally functioning cardiac pacemaker present: Code(s): Z95.0 - Presence of cardiac pacemaker Category: Medical Plan: Recheck with next visit. Followed remotely. Plan Discussion Notes I reviewed the concerns of hypertension management and the effects of her current and past medication dosages. We discussed the implications of continuing the course with Juanjo following her stroke history and changes post-hospital discharge. I explained the potential interaction of her cancer medication with her cardiac function, and reassured her that any immediate cardiac concerns are minimal but will be monitored closely through future ultrasounds. We reviewed the rationale for revising her blood pressure regimen, specifically returning to the previous dose of Carvedilol. The patient consented to the discussed plans and changes. Patient was informed and verbally consented to the use of an ambient scribe for clinic note documentation during this visit. Orders: Orders CA echo transthoracic complete 2 Months I42.9 - Cardiomyopathy, unspecified Patient Instructions: - Continue monitoring blood pressure at home and record readings. - Await call from the pharmacy to update medication regimen. - Follow the current medication schedule until further notice from our office. - Continue walking as tolerated. - Contact us if you experience any new symptoms or changes in health. Coding Level of Care Code Est Pt Level 4 (98987) Complex EM visit Add On G2211 Diagnoses Essential hypertension I10 Cardiomyopathy I42.9 Ascending aorta dilatation I77.810 Stroke I63.9 Normally functioning cardiac pacemaker present Z95.0
[2025-01-03 14:51] VITALS: BP 174/78; PULSE 63; BMI 17.3
== END 2025-01-03 15:28 | disposition home or self-care (01) ==
LOC: HO.HCS 14:41
PROVIDERS: PCP Family Medicine; Visit Provider Internal Medicine
DX: I10 Essential (primary) hypertension (principal); I42.9 Cardiomyopathy, unspecified; I77.810 Thoracic aortic ectasia; I63.9 Cerebral infarction, unspecified; Z95.0 Presence of cardiac pacemaker
CPT/HCPCS: 93010; 99214; G2211

== ENCOUNTER → 2025-01-03 14:40 | Outpatient (BNVA) | payer MEDICARE, SELFPAY | PROVIDERS: PCP Family Medicine; Visit Provider Internal Medicine | DX: I77.810 Thoracic aortic ectasia (principal); I10 Essential (primary) hypertension; I42.9 Cardiomyopathy, unspecified; Z95.0 Presence of cardiac pacemaker; Z86.73 Personal history of transient ischemic attack (TIA), and cerebral infarction without residual deficits | CPT/HCPCS: 93005; 99212 ==

== ENCOUNTER → 2025-03-02 23:59 | Outpatient (BNV) | payer MEDICARE, SELFPAY ==
--- NOTE | 2025-03-07 09:37 | MHC.OFFVIS ---
Intake Visit Reasons: Remote device check-[facility] Allergies No Known Allergies (No Known Allergies*) Allergy (Verified 01/03/25 14:52) [facility] Medical History Basal cell carcinoma Skin lesion of left arm Essential hypertension Normally functioning cardiac pacemaker present Hypertension H/O cardiac pacemaker Surgical History History of permanent cardiac pacemaker placement Family History Father No problems noted. Mother No problems noted. Social History Household Members: None Housing: House Do you presently have visiting nurse or other home services: No Alcohol intake: never Patient Tobacco Use Status: Never used Tobacco Second Hand Smoke Exposure: No Current occupation: right handed. Office Procedures Cardiac Device Check Cardiac Device Check Details: Date of service- 03/02/2025 ; Battery life >4 years; normal lead parameters; AP 50%; BIRD TRAPPER 81%; no significant arrhythmias. Overall normal device function. [id number] Cardiac Device Interrogation, pacemaker Procedure code (CPT) selection complete Assessment & Plan Assessment & Plan (1) Normally functioning cardiac pacemaker present: Code(s): Z95.0 - Presence of cardiac pacemaker Category: Medical (2) Heart block: Code(s): I45.9 - Conduction disorder, unspecified Category: Medical Plan x Coding Level of Care Code Procedure Only Diagnoses Normally functioning cardiac pacemaker present Z95.0 Heart block I45.9 CPT Codes Cardiac Device Check - Cardiac Device 12: [id number] Cardiac Device Interrogation, pacemaker ([id number])
== END ==
PROVIDERS: Visit Provider Internal Medicine
DX: I45.9 Conduction disorder, unspecified (principal); Z95.0 Presence of cardiac pacemaker
CPT/HCPCS: 93294

== ENCOUNTER → 2025-03-06 08:33 | Outpatient (REF) | payer MEDICARE, SELFPAY ==
--- NOTE | 2025-03-06 08:36 | CA_ITS ---
Transthoracic Echocardiogram Patient (Last, First, Middle): Allen Ludwig, Gender: Female Date of : 1935 Age: 89 Procedure Date: 03/06/2025 Procedure Type: Transthoracic Echocardiogram Location: OP Height: 160.02 cm Weight: 44. kg BSA: 1.42 m2 Heart Rate: bpm BP: 144 / 72 mmHg Manager Bridge: WILLY Referring MD: Raoul Flores MD Assistant Hairstylist: Mitchell Thomas MD Symptoms: I42.9 - Cardiomyopathy, unspecified Study Quality: Adequate ECG Rhythm: Ventriculary paced rhythm Conclusions: - 1. Normal LV ejection fraction of 60 65% with impaired relaxation filling pattern with mild focal basal septal hypertrophy 2. Mildly dilated left atrium 3. Mild mitral regurgitation 4. Mildly dilated ascending aorta 4.3 cm 5. Normal RV systolic pressure 6. No gross pericardial effusion Findings Left Ventricle Normal left ventricular size, thickness, and systolic function. The visually estimated ejection fraction is between 60-65%. There is paradoxical septal motion consistent with a right ventricular pacemaker. Spectral Doppler is indicative of an impaired relaxation filling pattern. E/E prime ratio is between 8 and 15 consistent with indeterminate filling pressures. There is mild septal asymmetric hypertrophy. Right Ventricle Normal right ventricular cavity size and systolic function. There is a pacemaker wire seen in the right ventricle. Atria The left atrium is mildly dilated. There is no evidence of interatrial shunt. The right atrium is normal in size. Aortic Valve Normal aortic valve structure and function. There is mild aortic valve stenosis. There is no aortic valve regurgitation. Mitral Valve Normal mitral valve structure and function. There is mild mitral valve regurgitation. There is no mitral valve stenosis. Pulmonic Valve The pulmonic valve is likely normal. There is trace pulmonic valve regurgitation. Tricuspid Valve Normal tricuspid valve structure. There is mild tricuspid valve regurgitation. The right ventricular systolic pressure is normal. The right ventricular systolic pressure is 27 mmHg. Normal right atrial pressure. There is no evidence of pulmonary hypertension. Great Vessels The pulmonary artery was not well visualized. There is mild dilatation of the ascending aorta measuring 4.30 cm. Venous The inferior vena cava is normal in size and collapses greater than 50% with inspiration. Pericardium/Pleural There is no evidence of pericardial effusion. Prior Study Comparison Changes noted compared to prior study dated: 11/03/2022. ascending aorta is management at 4.3 cm compared to prior study at 4 cm Measurements 2D Linear Measurements IVSd: 0.78 0.6-0.9/0.6-1.0 cm LVIDd: 4.94 3.9-5.3/4.2-5.9 cm LVIDd Index: 3.48 2.4-3.2/2.2-3.1 cm/m2 LVIDs: 3.11 2.0-3.6 cm LVPWd: 0.81 0.7-1.1 cm LA Diam: 2.20 2.7-3.8/3.0-4.0 cm LAIDs Index: 1.55 1.5-2.3 cm/m2 LV Mass: 164.47 67-162/88-224 g LV Mass Index: 115.83 43-95/49-115 g/m2 LVOT Diam: 2.00 3.0+(-)1.3 cm 2D Systolic Function EF 4C: 60.30 >55% EF 2C: 62.40 >55% EF BiP: 62.50 >55% Mitral Valve MV Pk E: 0.50 MV PK A: 0.69 MV Decel Time: 258.00 E/A: 0.70 E'Lateral: 5.98 E'Medial: 3.48 E/E' Med: 14.40 E/E' Lat: 8.40 PHT: 76.00 MVA PHT: 2.89 Decel [place]: 1.94 Aortic Valve AoV Pk Quentin: 1.23 AoV Mn Quentin: 0.89 AoV VTI: 0.26 AoV Pk Grad: 6.00 Aov Mn Grad: 4.00 JYOTHI Cont.VTI: 2.65 LVOT LVOT Pk Quentin: 1.06 LVOT Mn Quentin: 0.67 LVOT VTI: 0.22 LVOT Pk Grad: 4.00 LVOT Mn Grad: 2.00 LVOT Diam: 2.00 LVOT Area: 3.14 Diastolic Function MV Pk E: 0.50 MV Pk A: 0.69 E/A: 0.70 E'Medial: 3.48 E/E' Med: 14.40 E' Laterial: 5.98 E/E' Lat: 8.40 Right Ventricle TAPSE (mm): 22.60 TVS' Quentin: 8.70 Tricuspid Valve TR Pk Quentin: 2.45 TR Pk Grad: 24.00 RA Press: 3.00 RVSP: 27.00 Great Vessels Aorta Sinus of Valsalva: 4.02 2.0-3.[address] [place]: 2.84 1.7-3.4 cm Ao Asc: 4.30 2.1-3.4 cm Updated in Other Vendor System with Status of Final Mitchell Thomas MD electronically signed on 03/06/2025 10:26:38 AM with status of Final
--- OUTSIDE RECORDS SUMMARY | 2025-03-06 08:52 | XMS_ITS | Patient Health Record ---
Author Organization [facility] Address [address] [place] [address] Care Team Providers Care Geographic Information Systems Engineer Name Role Phone Basil (RETIRED) Zana NAZARIO Primary Care Provider Unavailable Xavier Haider Jr Unavailable SEA CREWS Unavailable Unavailable Allergies [...] Problem Status W/U Status Risk Notes Problem [id number] Abdominal pain, unspecified abdominal location (R10.9) Active confirmed Problem 64102929 Diarrhea, unspecified type (R19.7) Active confirmed Problem 99161009 Ischemic colitis (K55.9) Active confirmed Plan Of Treatment No Information Insurance Providers Payer Name Payer Address Payer Phone Subscriber Number Group Number Insured Name Patient Relationship to Insured Coverage Start Date Coverage End Date MEDICARE OF [place] [address] [place] [address] [id number] STONE ANDERSON Self - patient is the insured MEDEX ATTN CLAIMS [address] [place] [address] [id number] STONE ANDERSON Self - patient is the insured Medical (General) History Medical History History ICD Code 02/2020 complete heart block/ pace maker hypertension diverticulitis ischemic colitis GI bleed history of anemia and thrombocytopenia- Dr. Poole [place] Surgical History Surgery Date(Month/Year) pace maker 02/2020
== END ==
LOC: HO.CARD 08:33
PROVIDERS: Visit Provider Internal Medicine
DX: I42.9 Cardiomyopathy, unspecified (principal)
CPT/HCPCS: 93306

== ENCOUNTER → 2025-03-06 08:36 | Outpatient (BNV) | payer MEDICARE, SELFPAY | PROVIDERS: Visit Provider Internal Medicine Cardiovascular Disease | DX: I42.2 Other hypertrophic cardiomyopathy (principal); I35.0 Nonrheumatic aortic (valve) stenosis; I34.0 Nonrheumatic mitral (valve) insufficiency; I36.1 Nonrheumatic tricuspid (valve) insufficiency | CPT/HCPCS: 93306 ==

== ENCOUNTER 2025-04-03 07:55 | Outpatient (AMB) | payer MEDICARE, SELFPAY ==
--- OUTSIDE RECORDS SUMMARY | 2025-04-03 07:58 | XMS_ITS | Patient Health Record ---
Author Organization [facility] Address [address] [place] [address] Care Team Providers Care Supplemental Nurse Name Role Phone Basil (RETIRED) Zana NAZARIO [...] Problem Status W/U Status Risk Notes Problem [id number] Abdominal pain, unspecified abdominal location (R10.9) Active confirmed Problem 83774098 Diarrhea, unspecified type (R19.7) Active confirmed Problem 79026235 Ischemic colitis (K55.9) Active confirmed Plan Of Treatment No Information Insurance Providers Payer Name Payer Address Payer Phone Subscriber Number Group Number Insured Name Patient Relationship to Insured Coverage Start Date Coverage End Date MEDICARE OF [place] [address] [place] [address] [phone] [id number] STONE ANDERSON Self - patient is the insured MEDEX ATTN CLAIMS [address] [place] [address] [id number] STONE ANDERSON Self - patient is the insured Medical (General) History Medical History History ICD Code 02/2020 complete heart block/ pace maker hypertension diverticulitis ischemic colitis GI bleed history of anemia and thrombocytopenia- Dr. Poole [place] Surgical History Surgery Date(Month/Year) pace maker 02/2020
--- NOTE | 2025-04-03 07:59 | MHC.PC.OV ---
Vital Signs 04/03/25 08:10 Height 5 ft Weight 43.998 kg BMI 18.9 BP 150/84 H Respiration 18 Pulse 61 Pulse Source Pulse Oximeter Temp 97.3 F Temp Source Temporal Artery Scan Pulse Oximetry (%) 98 Oxygen Delivery Method Room Air Intake Visit Reasons: 3 MO F/UP - TARSHA PT Body Shop Manager Required: No Accompanied by: Self / Same As Patient Allergies No Known Allergies (No Known Allergies*) Allergy (Verified 04/03/25 08:01) Medication List - Last Reconciled 04/03/25 by ERIN Quigley apixaban (Eliquis) 5 mg PO BID carvedilol 12.5 mg PO BID cephalexin 500 mg PO TID osimertinib (Tagrisso) 80 mg PO DAILY Tobacco use date assessed: 04/03/25 Fall risk assessment: No Falls in past year Last assessed Fall Risk: 04/03/25 Dental Screening Dental Screen Date: 04/03/25 Did you have a dental visit in the last 12 months?: Yes Did you have a dental problem in the last 6 months where you did not have access to dental care?: No Was dental information given to patient?: No HPI HPI Comments History of Present Illness Details 89-year-old female with history of hypertension, non-small cell lung cancer, venous insufficiency, IBS, GERD, complete heart block s/p pacemaker placement, ascending aortic aneurysm, cardiomyopathy, CVA presents to the office today for management of chronic conditions and to establish care. Hypertension/CM/CHB-blood pressure in the office 150/84, on recheck . Compliant with lisinopril 20 mg daily and carvedilol 12.5 mg twice daily. Following with Cardiology [id number] lung cancer- following with [facility], on Tagrisso. Upcoming MRI brain History of CVA- on Eliquis due to concurrent malignancy. Left cerebellar infarct Concerns: Ingrown toenail left great toe, prescribed doxycycline. Health Maintenance: No longer undergoing colonoscopy and mammo ROS: General: No fevers, malaise, unintentional weight loss HEENT: No blurred vision, diplopia. No sore throat, nasal congestion, rhinorrhea, sinus pain, ear pain Cardiovascular: No chest pain, palpitations, or leg edema Respiratory: No shortness of breath, wheezing, cough GI: No abdominal pain, nausea, vomiting, diarrhea, constipation, melena, hematochezia : No dysuria, hematuria, increased urinary frequency, decreased urinary output MSK: No myalgia, back pain Neuro: No headaches, weakness, paresthesias Skin: No rashes or lesions EXAM: Constitutional - Awake and Alert, No apparent distress Eyes - PERRL Cardiovascular - S1S2, RRR, No edema Respiratory - Normal lung expansion, Normal respiratory effort, No respiratory distress, CTA bilaterally Extremities - no calf tenderness bilaterally, no swelling Skin - Warm/Dry Neurological - Alert & oriented x3 Psychological - Appropriate affect [facility] Medical History (Updated 04/03/25 @ 08:16 by ERIN Quigley) Non-small cell lung cancer Basal cell carcinoma Skin lesion of left arm Essential hypertension Normally functioning cardiac pacemaker present Hypertension H/O cardiac pacemaker Surgical History History of permanent cardiac pacemaker placement Family History Father No problems noted. Mother No problems noted. Social History Household Members: None Housing: House Do you presently have visiting nurse or other home services: No Alcohol intake: never Patient Tobacco Use Status: Never used Tobacco e-Cigarette/Vaping Use: Never Used Second Hand Smoke Exposure: No service: No Current occupational status: retired Current occupation: right handed. Cognitive needs: No Hearing needs: No Vision needs: Yes (reading glasses) Questionnaire PHQ-9 Over the last 2 weeks, how often have you been bothered by any of the following problems? 1. Little interest or pleasure in doing things: not at all 2. Feeling down, depressed, or hopeless: not at all 3. Trouble falling or staying asleep, or sleeping too much: not at all 4. Feeling tired or having little energy: not at all 5. Poor appetite or overeating: not at all 6. Feeling bad about yourself - or that you are a failure or have let yourself or your family down: not at all 7. Trouble concentrating on things, such as reading the newspaper or watching television: not at all 8. Moving or speaking so slowly that other people could have noticed. Or the opposite - being so fidgety or restless that you have been moving around a lot more than usual: not at all 9. Thoughts that you would be better off or of hurting yourself in some way: not at all Total score: 0 Source: Developed by Drs. Enrique Sosa, Jonn Allison and colleagues, with an educational chao from [employer]. Thrive Questionnaire Date Thrive assessed: 04/03/25 I am a: Patient What is your living situation today?: I have a steady place to live Within the past 12 months, did the food you bought not last and you didn't have the money to get more?: Never true Within the past 12 months, did you worry whether your food would run out before you got money to buy more?: Never true Do you have trouble paying for medicines?: No Do you have trouble getting transportation to medical appointments?: No Do you have trouble paying your heating and electricity bill?: No Do you have trouble taking care of your child, family member or friend?: No Do you have trouble with day-to-day activities such as bathing, preparing meals, shopping, managing finances, etc.?: No Are you currently unemployed and looking for a job?: No Are you interested in more education?: No Please select the resources that you would like help with: None THRIVE Score: 0 ISMAEL-7 AMB Questionnaire ISMAEL-7 Date ISMAEL - 7 assessed: 04/03/25 Feeling nervous, anxious, or on edge: 0 = Not at all Not being able to stop or control worryin = Not at all Worrying too much about different things: 0 = Not at all Trouble relaxin = Not at all Being so restless that it is hard to sit still: 0 = Not at all Becoming easily annoyed or irritable: 0 = Not at all Feeling afraid as if something awful might happen: 0 = Not at all Total ISMAEL-7 score (0-4 normal; 5-9 mild; 10-14 moderate; 15-21 severe): 0 Source: Developed by Drs. Enrique Sosa, Jonn Allison and colleagues, with an educational chao from [employer]. Physical exam (Primary Care) Vital Signs: Last Vital Signs Temp 97.3 F 04/03/25 08:10 Pulse 61 04/03/25 08:10 Resp 18 04/03/25 08:10 BP 150/84 H 04/03/25 08:10 Pulse Ox 98 04/03/25 08:10 Oxygen Delivery Method Room Air 04/03/25 08:10 BMI result Body Mass Index 18.9 Tobacco/Smoking Status: Tobacco use Status Tobacco use date assessed 04/03/25 04/03/25 08:12 Patient Tobacco Use Status Never used Tobacco 04/03/25 08:03 e-Cigarette/Vaping Use Never Used 04/03/25 08:12 Coding Level of Care Code New Pt Level 4 (61485) Complex EM visit Add On G2211 Diagnoses Essential hypertension I10 Stroke I63.9 Non-small cell lung cancer C34.90 Ingrown toenail of left foot L60.0 Assessment & Plan Assessment & Plan (1) Essential hypertension: Code(s): I10 - Essential (primary) hypertension Category: Medical Plan: Uncontrolled. Increase lisinopril to 30mg. Low sodium diet. follow up in 2-3 weeks for BP recheck (2) Stroke: Code(s): I63.9 - Cerebral infarction, unspecified Category: Medical Plan: Continue Eliquis. (3) Non-small cell lung cancer: Code(s): C34.90 - Malignant neoplasm of unspecified part of unspecified bronchus or lung Category: Medical Plan: Continue following with Oncology. Continue on Tagrisso (4) Ingrown toenail of left foot: Code(s): L60.0 - Ingrowing nail Category: Medical Plan: Infection resolved. Finish doxy, referred to podiatry Plan Follow-up in the office in 4 months. Last be completed following visit as well as prior to next visit Orders: Orders Basic Metabolic Panel Today I10 - Essential (primary) hypertension, I63.9 - Cerebral infarction, unspecified Complete Blood Count Auto Diff Today I10 - Essential (primary) hypertension, I63.9 - Cerebral infarction, unspecified Vitamin D 25-OH Total Today I10 - Essential (primary) hypertension, I63.9 - Cerebral infarction, unspecified Referrals Podiatry Referral L60.0 - Ingrowing nail Medications: New lisinopril 20 mg PO DAILY 90 tabs 0RF Discontinued lisinopril Discontinued Reason: Doctor's Order 20 mg PO DAILY 90 tabs 2RF Patient Instructions: Carvedilol 12.5 mg must be taken twice daily Apixaban 5 mg must be taken twice daily
[2025-04-03 08:10] VITALS: BP 150/84; PULSE 61; RESP 18; TEMP 36.3; O2SAT 98; BMI 18.9
== END 2025-04-03 08:28 | disposition home or self-care (01) ==
LOC: HO.HMCHD 07:56
PROVIDERS: PCP Family Medicine; Visit Provider Physician Assistant
DX: I10 Essential (primary) hypertension (principal); I63.9 Cerebral infarction, unspecified; C34.90 Malignant neoplasm of unspecified part of unspecified bronchus or lung; L60.0 Ingrowing nail

== ENCOUNTER → 2025-04-03 07:55 | Outpatient (BNVA) | payer MEDICARE, SELFPAY | PROVIDERS: PCP Family Medicine; Visit Provider Physician Assistant | DX: I10 Essential (primary) hypertension (principal); I42.9 Cardiomyopathy, unspecified; C34.90 Malignant neoplasm of unspecified part of unspecified bronchus or lung; L60.0 Ingrowing nail; Z86.73 Personal history of transient ischemic attack (TIA), and cerebral infarction without residual deficits; Z79.01 Long term (current) use of anticoagulants; Z79.899 Other long term (current) drug therapy; Z95.0 Presence of cardiac pacemaker; Z13.30 Encounter for screening examination for mental health and behavioral disorders, unspecified | CPT/HCPCS: 96127; 99202 ==

== ENCOUNTER 2025-04-03 08:43 | Outpatient (REF) | payer MEDICARE, SELFPAY ==
[2025-04-03 10:52] LABS: MANUAL DIFF FLAG NO
[2025-04-03 11:03] LABS: Hematocrit 30.4 % (37.0-47.0); Hemoglobin 9.6 g/dl (12.0-16.0); Imm Gran Abs Auto 0.02 X10*3/uL (0.00-0.03); Imm Gran Pct Auto 0.5 % (0.0-0.4); Lymphocytes Absolute Auto 0.7 X10*3/uL (1.2-4.9); Mean Corpuscular HGB Conc 31.6 g/dl (31.0-35.0); Mean Corpuscular Hemoglobin 26.5 pg (27.0-33.0); Mean Corpuscular Volume 84.0 fL (80.0-98.0); NRBC Abs Auto 0.000 X10*3/uL (0.0-0.012); NRBC Pct Auto 0.0 /100WBC (0.0-0.2); Red Blood Count 3.62 X10*6/uL (4.20-5.50); White Blood Count 4.4 X10*3/uL (4.8-10.8)
[2025-04-03 11:22] LABS: Anion Gap 12 (12-20); Blood Urea Nitrogen 25 mg/dL (9-16); Calcium 9.4 mg/dL (8.4-10.2); Carbon Dioxide 24 mmol/L (22-29); Chloride 108 mmol/L (96-108); Estimated Glomerular Filt Rate > 60; Potassium 3.8 mmol/L (3.3-5.1); Sodium 140 mmol/L (135-145)
[2025-04-03 11:36] LABS: Platelet Count 125 X10*3/uL (160-400)
== END 2025-04-03 08:44 | disposition home or self-care (01) ==
LOC: HO.10HDL 08:43
PROVIDERS: Visit Provider Physician Assistant
DX: I10 Essential (primary) hypertension (principal); I63.9 Cerebral infarction, unspecified
CPT/HCPCS: 36415; 80048; 82306; 85025

== ENCOUNTER 2025-04-18 08:44 | Outpatient (AMB) | payer MEDICARE, SELFPAY ==
--- NOTE | 2025-04-18 08:46 | A.OFFVIS_ITS ---
Vital Signs 3 04/18/25 08:49 Height 5 ft Weight 97 lb BMI 18.9 Intake Visit Reasons: New Pt- Ingrown toe nail Intake Note: Allen is a 89 year old female who presents today as a new patient for an evaluation of her ingrown toenail of the left great toe. Patient was prescribed cephalexin and found that it has helped with her toe . Patient reports having mild pain in her toe . Allergies No Known Allergies (No Known Allergies*) Allergy (Verified 04/18/25 08:48) Medication List - Last Reconciled 04/18/25 by Jes Carrillo DPM apixaban (Eliquis) 5 mg PO BID carvedilol 12.5 mg PO BID cephalexin 500 mg PO TID lisinopril 20 mg PO DAILY osimertinib (Tagrisso) 80 mg PO DAILY HPI Comments Details: This patient is an 89-year-old female with a past medical history as seen below who presents to the office today for painful left hallux ingrown toenail. She states it has been going on for over a month and states that she has had 2 rounds of Keflex. She states she is currently finishing up her 2nd round of Keflex at this moment. She states she noticed some edema and erythema as well as some purulence prior to starting the Keflex. Patient denies any current purulence at this time. She denies any injury to the left hallux. Patient states she has had an injury to the right hallux approximately 10 years ago where she dropped an item onto her foot but at this time does not record any pain. Patient states she sometimes feels pain as well to the medial border of the 2nd toe on the left foot. She denies any other pedal concerns. Denies any nausea vomiting fever or chills. Patient seen wear sneakers. Patient states she has difficulty seeing and her daughter helps 10 to her feet. [facility] Medical History Pain of left great toe Cellulitis of great toe of left foot Ingrown nail of great toe of left foot Non-small cell lung cancer Basal cell carcinoma Skin lesion of left arm Essential hypertension Normally functioning cardiac pacemaker present Hypertension H/O cardiac pacemaker Surgical History History of permanent cardiac pacemaker placement Family History Father No problems noted. Mother No problems noted. Social History Household Members: None Housing: House Do you presently have visiting nurse or other home services: No Alcohol intake: never Patient Tobacco Use Status: Never used Tobacco e-Cigarette/Vaping Use: Never Used Second Hand Smoke Exposure: No service: No Current occupational status: retired Current occupation: right handed. Cognitive needs: No Hearing needs: No Vision needs: Yes (reading glasses) Review of Systems Const All systems reviewed & are unremarkable except as noted in HPI and below Physical Exam Vital Signs: BMI result Body Mass Index 18.9 Extrem Other: Left lower extremity focused physical exam: Derm: Mild edema noted to the medial aspect of the left hallux along the nail fold. Increase incurvation noted to the medial border of the left hallucal nail with ingrowing noted. No active bleeding or purulence noted. No open wounds abrasions or lesions noted. Thickened and elongated nails noted to toes X10 with subungual debris. Mottling of skin noted to bilateral lower extremities. Vascular: DP/PT pulses palpable. Varicosities noted. Capillary refill time less than 3 seconds. Temperature gradient warm to warm. Pedal hair absent. Neuro: Protective sensation is grossly intact. Musculoskeletal: Pain on palpation to the medial border of the left hallux along the medial border nail fold. Bilateral Hammertoe deformity as well as bilateral hallux valgus, secondary to rheumatoid arthritis. Range of motion of the forefoot reduced. Gait within normal limits with no assistive device. Ankle/foot/toe images: 2 1. Left hallux medial border ingrown nail Office Procedures AMB Debridement/Avulsion Podia Details: Procedure: Left hallux partial nail avulsion of the medial border Cleansed left hallux with alcohol swab and injected 7 cc of 1% lidocaine plain in a hallux block fashion. Next applied a tourniquet to the left hallux and then cleanse the left hallux with Betadine. Attention was drawn to the medial border of the left hallux and a Mercer was utilized to free the offending nail border from the nailbed. Next an Bengali anvil was utilized to trim and cut the offending nail border and a hemostat was used to remove the offending nail border completely. Triple antibiotic ointment a Band-Aid and Coban was then applied to the left hallux. Procedure was done with no incidents. Provided patient with aftercare instructions. 13815 Partial/Total nail avulsion (1 nail) Procedure code (CPT) selection complete Office Meds lidocaine HCl 10 mg/mL (1 %) injection solution Performing Provider: Jes Carrillo DPM Performing Location: [facility] Administered by: Jes Carrillo DPM on 04/18/25 09:28 2 Dose Route Admin Location Dispensed Lot Number Expiration Date [facility] [place] 7 mL subcut 7 mL [id number] HOSPIRA/PFI ZER 2 Total Dispensed Waste 7 mL 0 % Triple Antibiotic 3.5 mg-400 unit-5,000 unit topical ointment packet Performing Provider: Jes Carrillo DPM Performing Location: [facility] Administered by: Jes Carrillo DPM on 04/18/25 09:28 2 Dose Route Admin Location Dispensed Lot Number Expiration Date [facility] [place] 1 appl topical 1 appl [id number] PADAG[employer] povidone-iodine 10 % topical swab Performing Provider: Jes Carrillo DPM Performing Location: [facility] Administered by: Jes Carrillo DPM on 04/18/25 09:28 2 Dose Route Admin Location Dispensed Lot Number Expiration Date [facility] [place] 1 appl topical 1 appl [id number] [employer] IND [place]. ethyl chloride 100 % topical spray Performing Provider: Jes Carrillo DPM Performing Location: [facility] Administered by: Jes Carrillo DPM on 04/18/25 09:28 2 Dose Route Admin Location Dispensed Lot Number Expiration Date [facility] [place] 1 appl topical 116 mL [id number] [employer]. Results Reviewed Results Reviewed: Laboratory Tests 04/03/25 08:48 WBC 4.4 L Assessment & Plan Assessment & Plan (1) Ingrown nail of great toe of left foot: Code(s): L60.0 - Ingrowing nail Category: Medical (2) Cellulitis of great toe of left foot: Code(s): L03.032 - Cellulitis of left toe Category: Medical (3) Pain of left great toe: Code(s): M79.675 - Pain in left toe(s) Category: Medical (4) Pincer nail deformity: Code(s): L60.8 - Other nail disorders (5) Onychomycosis: Code(s): B35.1 - Tinea unguium (6) Nail dystrophy: Code(s): L60.3 - Nail dystrophy Plan Discussed with patient diagnosis of an ingrown toenail as well as onychomycosis. Recommend routine nail care and today a partial nail avulsion of the left hallucal nail medial border. Provided patient with aftercare instructions/form including leaving the bandage on for 24 hours, soaking the feet in Epsom salt and warm water in once dry applying Neosporin and a Band- Aid starting tomorrow. Patient is to keep the feet clean and dry. Patient is to avoid tight-fitting shoes and is to wear shoes with a wide toe box. Performed a partial nail avulsion of the left hallux medial nail border with no incidents. Patient is to return to the office in 2 weeks for re-evaluation following procedure and routine nail care. Orders: Orders 2 AMB Debridement/Avulsion Podiatry Today B35.1 - Tinea unguium, L03.032 - Cellulitis of left toe, L60.0 - Ingrowing nail, L60.3 - Nail dystrophy, L60.8 - Other nail disorders, M79.675 - Pain in left toe(s) Coding Level of Care Code New Pt Level 4 (34009) Diagnoses Ingrown nail of great toe of left foot L60.0 Cellulitis of great toe of left foot L03.032 Pain of left great toe M79.675 Pincer nail deformity L60.8 Onychomycosis B35.1 Nail dystrophy L60.3 CPT Codes Skin Debridement - CPT: 24948 Partial/Total nail avulsion (1 nail) ([id number]) Time Spent (min) 45
[2025-04-18 08:49] VITALS: BMI 18.9
--- OUTSIDE RECORDS SUMMARY | 2025-04-18 09:53 | XMS_ITS | Patient Health Record ---
Author Organization [facility] Address [address] [place] [address] Care Team Providers Care Dba Manager Name Role Phone Basil (RETIRED) Zana NAZARIO Primary Care Provider Unavailable Xavier Haiedr Jr Unavailable [employer] Unavailable Unavailable Allergies [...] Problem Status W/U Status Risk Notes Problem [id number] Abdominal pain, unspecified abdominal location (R10.9) Active confirmed Problem [id number] Diarrhea, unspecified type (R19.7) Active confirmed Problem [id number] Ischemic colitis (K55.9) Active confirmed Plan Of Treatment No Information Insurance Providers Payer Name Payer Address Payer Phone Subscriber Number Group Number Insured Name Patient Relationship to Insured Coverage Start Date Coverage End Date MEDICARE OF [place] [address] [place] [address] [id number] STONE ANDERSON Self - patient is the insured [employer] ATTN CLAIMS [address] [place] [address] [id number] STONE ANDERSON Self - patient is the insured Medical (General) History Medical History History ICD Code 02/2020 complete heart block/ pace maker hypertension diverticulitis ischemic colitis GI bleed history of anemia and thrombocytopenia- Dr. Poole sunbright Surgical History Surgery Date(Month/Year) pace maker 02/2020
== END 2025-04-18 09:54 | disposition home or self-care (01) ==
LOC: HO.HPODS 08:45
PROVIDERS: PCP Physician Assistant; Visit Provider Student in an Organized Health Care Education/Training Program
DX: L60.0 Ingrowing nail (principal); L03.032 Cellulitis of left toe; M79.675 Pain in left toe(s); B35.1 Tinea unguium; L60.3 Nail dystrophy; L60.8 Other nail disorders
CPT/HCPCS: 11730; 99204

== ENCOUNTER → 2025-04-18 08:44 | Outpatient (BNVA) | payer MEDICARE, SELFPAY | PROVIDERS: PCP Physician Assistant; Visit Provider Student in an Organized Health Care Education/Training Program | DX: L60.0 Ingrowing nail (principal); L03.032 Cellulitis of left toe; M79.675 Pain in left toe(s); B35.1 Tinea unguium; L60.3 Nail dystrophy; L60.8 Other nail disorders | CPT/HCPCS: 11730; 99202; J2003 ==

== ENCOUNTER 2025-04-25 09:04 | Outpatient (AMB) | payer MEDICARE, SELFPAY ==
--- NOTE | 2025-04-25 09:13 | MHC.PC.OV ---
Vital Signs 04/25/25 09:16 Height 5 ft Weight 43.545 kg BMI 18.7 BP 170/92 H Respiration 16 Pulse 51 Pulse Source Pulse Oximeter Temp 98.6 F Temp Source Temporal Artery Scan Pulse Oximetry (%) 99 Oxygen Delivery Method Room Air Intake Visit Reasons: 3 week F/U Boom Master Required: No Accompanied by: Self / Same As Patient Allergies No Known Allergies (No Known Allergies*) Allergy (Verified 04/25/25 09:13) Medication List - Last Reconciled 04/25/25 by ERIN Quigley apixaban (Eliquis) 5 mg PO BID ascorbic acid (vitamin C) 250 mg PO DAILY carvedilol 12.5 mg PO BID ferrous sulfate 325 mg PO Q OTHER DAY lisinopril 40 mg PO DAILY osimertinib (Tagrisso) 80 mg PO DAILY Tobacco use date assessed: 04/03/25 Dental Screening Dental Screen Date: 04/03/25 HPI HPI Comments History of Present Illness Details 89-year-old female with history of hypertension, non-small cell lung cancer, venous insufficiency, IBS, GERD, complete heart block s/p pacemaker placement, ascending aortic aneurysm, cardiomyopathy, CVA presents to the office today for management of chronic conditions and bp follow up. Hypertension/CM/CHB-blood pressure in the office 156/84, on recheck . She had been advised to increase lisinopril to 30 mg daily but states she did not do so. Compliant with lisinopril 20 mg daily. Reports he is not always taking carvedilol 12.5 mg twice daily as she forgets to take the 2nd dose. Following with [facility] Cardiology [id number] lung cancer- following with [facility], on Tagrisso. Upcoming MRI brain History of CVA- on Eliquis due to concurrent malignancy. She does report that sometimes she forgets to take the 2nd dose of Eliquis Left cerebellar infarct Concerns: Ingrown toenail left great toe, prescribed doxycycline. Saw podiatry, terrible pain. Soaking every day in epsom salt and is improving. Has f/up appt in 2 weeks. Health Maintenance: No longer undergoing colonoscopy and mammo ROS: General: No fevers, malaise, unintentional weight loss See HPI EXAM: Constitutional - Awake and Alert, No apparent distress Eyes - PERRL Cardiovascular - S1S2, RRR, No edema Respiratory - Normal lung expansion, Normal respiratory effort, No respiratory distress, CTA bilaterally Extremities - no calf tenderness bilaterally, no swelling. Left foot in post-op show Skin - Warm/Dry Neurological - Alert & oriented x3 Psychological - Appropriate affect [facility] Medical History (Updated 04/25/25 @ 09:56 by ERIN Quigley) Iron deficiency anemia Pain of left great toe Cellulitis of great toe of left foot Ingrown nail of great toe of left foot Non-small cell lung cancer Basal cell carcinoma Skin lesion of left arm Essential hypertension Normally functioning cardiac pacemaker present Hypertension H/O cardiac pacemaker Surgical History (Updated 04/24/25 @ 15:51 by Josefina Kilpatrick) History of colonoscopy (~02/04/08) History of permanent cardiac pacemaker placement Family History Father No problems noted. Mother No problems noted. Social History Household Members: None Housing: House Do you presently have visiting nurse or other home services: No Alcohol intake: never Patient Tobacco Use Status: Never used Tobacco e-Cigarette/Vaping Use: Never Used Second Hand Smoke Exposure: No service: No Current occupational status: retired Current occupation: right handed. Cognitive needs: No Hearing needs: No Vision needs: Yes (reading glasses) Questionnaire Thrive Questionnaire Date Thrive assessed: 04/03/25 ISMAEL-7 AMB Questionnaire ISMAEL-7 Date ISMAEL - 7 assessed: 04/03/25 Source: Developed by Drs. Enrique Sosa, Natalia Khalil, Jonn Chou and colleagues, with an educational chao from [employer]. Physical exam (Primary Care) Vital Signs: Last Vital Signs Temp 98.6 F 04/25/25 09:16 Pulse 51 04/25/25 09:16 Resp 16 04/25/25 09:16 BP 170/92 H 04/25/25 09:16 Pulse Ox 99 04/25/25 09:16 Oxygen Delivery Method Room Air 04/25/25 09:16 BMI result Body Mass Index 18.7 Tobacco/Smoking Status: Tobacco use Status Tobacco use date assessed 04/03/25 04/25/25 09:13 Patient Tobacco Use Status Never used Tobacco 04/25/25 09:13 e-Cigarette/Vaping Use Never Used 04/25/25 09:13 Thrive Assessment: Date of Thrive Assessment Date Thrive assessed 04/03/25 04/25/25 09:13 Coding Level of Care Code Est Pt Level 4 (26358) Complex EM visit Add On G2211 Diagnoses Essential hypertension I10 Cardiomyopathy I42.9 Non-small cell lung cancer C34.90 Iron deficiency anemia D50.9 Assessment & Plan Assessment & Plan (1) Essential hypertension: Code(s): I10 - Essential (primary) hypertension Category: Medical Plan: Remains uncontrolled. Increase lisinopril to 30 mg daily and take carvedilol 12.5 mg twice daily. Given instructions on this. Low-sodium diet (2) Cardiomyopathy: Code(s): I42.9 - Cardiomyopathy, unspecified Category: Medical Plan: Euvolemic, asymptomatic. Continue following with Cardiology and take medications as prescribed (3) Non-small cell lung cancer: Code(s): C34.90 - Malignant neoplasm of unspecified part of unspecified bronchus or lung Category: Medical Plan: Continue following with Oncology, notes reviewed. Continue tagrisso as prescribed (4) Iron deficiency anemia: Code(s): D50.9 - Iron deficiency anemia, unspecified Category: Medical Plan: Recommend ferrous sulfate 325 mg every other day. Take with vitamin-C for better absorption Plan Follow-up in the office in 4 months with labs completed prior to visit. reviewd most recent labs w pt Orders: Orders Basic Metabolic Panel 4 Months E55.9 - Vitamin D deficiency, unspecified, I10 - Essential (primary) hypertension Liver Panel 4 Months E55.9 - Vitamin D deficiency, unspecified, I10 - Essential (primary) hypertension Vitamin D 25-OH Total 4 Months E55.9 - Vitamin D deficiency, unspecified, I10 - Essential (primary) hypertension Medications: New ferrous sulfate 325 mg PO Q OTHER DAY 90 tabs 0RF ascorbic acid (vitamin C) 250 mg PO DAILY 90 tabs 1RF lisinopril 30 mg PO DAILY 90 tabs 0RF Discontinued lisinopril Discontinued Reason: Doctor's Order 20 mg PO DAILY 90 tabs 0RF Patient Instructions: Lisinopril 30 mg ONCE daily Apixaban 5mg TWICE daily Carvedilol 12.5 mg TWICE DAILY Ferrous sulfate 325mg EVERY OTHER DAY. Take with vitamin c (ascorbic acid) every morning Osimertinib 80mg DAILY Can take evening doses with dinner. Recommend pill box
[2025-04-25 09:16] VITALS: BP 170/92; PULSE 51; RESP 16; TEMP 37; O2SAT 99; BMI 18.7
--- OUTSIDE RECORDS SUMMARY | 2025-04-25 11:23 | XMS_ITS | Patient Health Record ---
Author Organization [facility] Address [address] [place] [address] Care Team Providers Care Cream Dumper Name Role Phone Basil (RETIRED) Zana NAZARIO Primary Care Provider Unavailable Xavier Haider Jr Unavailable SEA CREWS Unavailable Unavailable Allergies Allergen (clinical drug ingredient) Drug/Non Drug Allergy documented on EMR Reaction Allergy Type Onset Date Status metronidazole Flagyl Unknown Drug Allergy Act cristoefr Reason For Referral No Information Medications Medication [...] Problem Status W/U Status Risk Notes Problem [id number] Abdominal pain, unspecified abdominal location (R10.9) Active confirmed Problem [id number] Diarrhea, unspecified type (R19.7) Active confirmed Problem [id number] Ischemic colitis (K55.9) Active confirmed Plan Of Treatment No Information Insurance Providers Payer Name Payer Address Payer Phone Subscriber Number Group Number Insured Name Patient Relationship to Insured Coverage Start Date Coverage End Date [place]ARE OF [place] [address] [place] [address] [id number] STONE ANDERSON Self - patient is the insured MEDEX ATTN CLAIMS [address] [place] [address] [id number] STONE ANDERSON Self - patient is the insured Medical (General) History Medical History History ICD Code 02/2020 complete heart block/ pace maker hypertension diverticulitis ischemic colitis GI bleed history of anemia and thrombocytopenia- Dr. Poole [place] Surgical History Surgery Date(Month/Year) pace maker 02/2020
== END 2025-04-25 09:57 | disposition home or self-care (01) ==
LOC: HO.HMCHD 09:05
PROVIDERS: PCP Family Medicine; Visit Provider Physician Assistant
DX: I10 Essential (primary) hypertension (principal); I42.9 Cardiomyopathy, unspecified; C34.90 Malignant neoplasm of unspecified part of unspecified bronchus or lung; D50.9 Iron deficiency anemia, unspecified

== ENCOUNTER → 2025-04-25 09:04 | Outpatient (BNVA) | payer MEDICARE, SELFPAY | PROVIDERS: PCP Family Medicine; Visit Provider Physician Assistant | DX: I10 Essential (primary) hypertension (principal); I42.9 Cardiomyopathy, unspecified; C34.90 Malignant neoplasm of unspecified part of unspecified bronchus or lung; E55.9 Vitamin D deficiency, unspecified | CPT/HCPCS: 99212 ==

== ENCOUNTER 2025-05-09 08:37 | Outpatient (REF) | payer MEDICARE, SELFPAY | END 2025-05-09 08:38 | disposition home or self-care (01) | LOC: HO.LNP 08:37 | PROVIDERS: PCP Family Medicine; Visit Provider Student in an Organized Health Care Education/Training Program | DX: L60.0 Ingrowing nail (principal); L03.032 Cellulitis of left toe; M79.675 Pain in left toe(s); L60.8 Other nail disorders; B35.1 Tinea unguium; L60.3 Nail dystrophy; S81.801A Unspecified open wound, right lower leg, initial encounter; W22.8XXA Striking against or struck by other objects, initial encounter; Y93.9 Activity, unspecified; Y92.9 Unspecified place or not applicable; Y99.9 Unspecified external cause status; Z79.01 Long term (current) use of anticoagulants | CPT/HCPCS: 11721; 87070; 87077; 87185; 87186; 87205; 97597; 99212 ==

== ENCOUNTER 2025-05-09 08:37 | Outpatient (AMB) | payer MEDICARE, SELFPAY ==
--- NOTE | 2025-05-09 08:48 | A.OFFVIS_ITS ---
Intake Visit Reasons: Follow Up Ingrown toe nail Intake Note: Yamini is a 89 year old female who presents today for a follow up on her left ingrown toe nail. A partial nail avulsion of the left hallux on the medial border was performed on 04/18/25. Pt reports experiencing slight pain on occasions but overall her toe is healing well. She mentions an injury occured on her right leg when the pipe to an umbrella struck her leg. Allergies No Known Allergies (No Known Allergies*) Allergy (Verified 04/25/25 09:13) HPI Comments Details: The patient is an 89-year-old female presenting for follow-up of her left hallux medial border partial nail avulsion. The patient states initially she experiences pain to the area but the pain has now resolved. The patient reports right leg wound with tenderness that began approximately two weeks ago, when a outdoor umbrella pole struck her leg. She describes the pain as a persistent soreness and affecting the entire leg. She notes that her skin is very fragile, leading to frequent injuries. She denies any purulence to the area. She states she has been applying daily dressing changes. The patient is currently on blood thinners but admits to taking the medication only once daily instead of the prescribed twice daily. She is also on blood pressure medication and cancer treatment, which she manages with some difficulty due to the number of medications. The patient has a pacemaker and a history of stroke, which has left her feeling unsteady at times. [facility] Medical History (Updated 05/09/25 @ 09:52 by Jes Carrillo DPM) Ulcer of right lower leg Leg wound, right Iron deficiency anemia Pain of left great toe Cellulitis of great toe of left foot Ingrown nail of great toe of left foot Non-small cell lung cancer Basal cell carcinoma Skin lesion of left arm Essential hypertension Normally functioning cardiac pacemaker present Hypertension H/O cardiac pacemaker Surgical History (Updated 04/24/25 @ 15:51 by Josefina Kilpatrick) History of colonoscopy (~02/04/08) History of permanent cardiac pacemaker placement Family History Father No problems noted. Mother No problems noted. Social History Household Members: None Housing: House Do you presently have visiting nurse or other home services: No Alcohol intake: never Patient Tobacco Use Status: Never used Tobacco e-Cigarette/Vaping Use: Never Used Second Hand Smoke Exposure: No service: No Current occupational status: retired Current occupation: right handed. Cognitive needs: No Hearing needs: No Vision needs: Yes (reading glasses) Review of Systems Const Details: - Musculoskeletal: Reports leg wound with soreness. - Integumentary: Reports thin skin and frequent skin tears. - Cardiovascular: Reports pacemaker placement, denies chest pain. - Neurological: Reports history of stroke, denies current neurological symptoms. All systems reviewed & are unremarkable except as noted in HPI and below Physical Exam Extrem Other: Left lower extremity focused physical exam: Derm: Edema noted to the right lower extremity. No edema noted to the medial aspect of the left hallux along the nail fold with a noted healed partial nail avulsion site. Thickened, discolored, dystrophic, and elongated nails noted to toes X10 with subungual debris. Superficial ulcer noted to the anterior aspect of the right leg limited to skin breakdown with noted eschar formation. No active bleeding purulence or drainage noted. Measuring approximately 1 x 1.5 cm. No probing to bone no tunneling or undermining noted. Mottling of skin noted to bilateral lower extremities. Vascular: DP/PT pulses palpable. Varicosities noted. Capillary refill time less than 3 seconds. Temperature gradient warm to warm. Pedal hair absent. Neuro: Protective sensation is grossly intact. Musculoskeletal: Mild pain on palpation to the right lower extremity worsened to the area of the superficial ulcer. No pain on palpation to the medial border of the left hallux along the medial border nail fold. Bilateral Hammertoe deformity as well as bilateral hallux valgus, secondary to rheumatoid arthritis. Range of motion of the forefoot reduced. Gait within normal limits with no assistive device. Office Procedures AMB Debridement/Avulsion Podia Details: Right leg wound was cleansed with saline with mild mechanical debridement using a 2 x 2 sterile gauze. Next obtained a wound culture which will be sent for microbiology. Applied triple antibiotic and Betadine soaked 2 x 2 gauze with Mynor to the right lower extremity in the area of the wound. Patient is to keep the dressing clean and dry for today and may continue with daily dressing changes tomorrow. Debrided toenails X10 using a sterile nail Nipper with no incidents. 18991-Pnciqdujufm of active wound <20cm 97251-Vyhfhiknenq of Nail 6+ Procedure code (CPT) selection complete Office Meds Triple Antibiotic 3.5 mg-400 unit-5,000 unit topical ointment packet Performing Provider: Jes Carrillo DPM Performing Location: [facility] Administered by: Jes Carrillo DPM on 05/09/25 09:49 Dose Route Admin Location Dispensed Lot Number Expiration Date [facility] [employer] 1 appl topical 1 appl [id number] [employer] povidone-iodine 10 % topical swab Performing Provider: Jes Carrillo DPM Performing Location: [facility] Administered by: Jes Carrillo DPM on 05/09/25 09:49 Dose Route Admin Location Dispensed Lot Number Expiration Date [facility] Vice President [employer] 1 appl topical 1 appl [id number] [employer] [place]. Results Reviewed Results Reviewed: Laboratory Tests 04/03/25 08:48 WBC 4.4 L Obtained a right leg wound culture to be sent for microbiology. Assessment & Plan Assessment & Plan (1) Ingrown nail of great toe of left foot: Code(s): L60.0 - Ingrowing nail Category: Medical (2) Cellulitis of great toe of left foot: Code(s): L03.032 - Cellulitis of left toe Category: Medical (3) Pain of left great toe: Code(s): M79.675 - Pain in left toe(s) Category: Medical (4) Pincer nail deformity: Code(s): L60.8 - Other nail disorders (5) Onychomycosis: Code(s): B35.1 - Tinea unguium (6) Nail dystrophy: Code(s): L60.3 - Nail dystrophy (7) Leg wound, right: Code(s): S81.801A - Unspecified open wound, right lower leg, initial encounter Category: Medical Qualifiers: Encounter type: initial encounter Qualified Code(s): S81.801A - Unspecified open wound, right lower leg, initial encounter Plan Patient was informed and verbally consented to the use of an ambient scribe for clinic note documentation during this visit. During the visit, I discussed the importance of adhering to the prescribed blood thinner regimen to prevent potential complications. I explained the process of taking a wound culture to check for infection. The patient was advised to contact the clinic if she experiences any worsening symptoms or new concerns. - debrided toenails X 10 and did not mild mechanical debridement of right leg wound with a dressing change. - Continue monitoring the right leg wound and await culture results to determine if infection is present. - Continue with daily dressing changes to the right lower extremity. - Encouraged adherence to prescribed blood thinner regimen to prevent complications. - Patient is to avoid tight-fitting shoes and is to wear shoes with a wide toe box. Patient is to follow up in 9 weeks for routine nail care but was instructed to come in sooner if right leg wound and scab worsens. Orders: Orders Routine Culture w Gram Stain Today S81.801A - Unspecified open wound, right lower leg, initial encounter AMB Debridement/Avulsion Podiatry Today S81.801A - Unspecified open wound, right lower leg, initial encounter Coding Level of Care Code Tele Est Pt Level 4 (14245) Diagnoses Ingrown nail of great toe of left foot L60.0 Cellulitis of great toe of left foot L03.032 Pain of left great toe M79.675 Pincer nail deformity L60.8 Onychomycosis B35.1 Nail dystrophy L60.3 Wound of right lower extremity, initial encounter S81.801A Encounter type: initial encounter CPT Codes Skin Debridement - CPT: 59666-Dewjihrlylj of active wound <20cm ([id number]) Skin Debridement - CPT: 03798-Myzagfvvljw of Nail 6+ ([id number]) Time Spent (min) 60
--- OUTSIDE RECORDS SUMMARY | 2025-05-09 09:04 | XMS_ITS | Patient Health Record ---
Author Organization [facility] Address [address] [place] [address] Care Team Providers Care Mucker Operator Name Role Phone Basil (RETIRED) Zana NAZARIO Primary Care Provider Unavailable Xavier Haider Jr Unavailable [phone] SEA CREWS Unavailable Unavailable Allergies Allergen (clinical [...] Problem Status W/U Status Risk Notes Problem [id number] Abdominal pain, unspecified abdominal location (R10.9) Active confirmed Problem 50017453 Diarrhea, unspecified type (R19.7) Active confirmed Problem 42676560 Ischemic colitis (K55.9) Active confirmed Plan Of Treatment No Information Insurance Providers Payer Name Payer Address Payer Phone Subscriber Number Group Number Insured Name Patient Relationship to Insured Coverage Start Date Coverage End Date MEDICARE OF [place] [address] [place] [address] [id number] STONE ANDERSON Self - patient is the insured MEDEX ATTN CLAIMS [address] [place] [address] [id number] STONE ANDERSON Self - patient is the insured Medical (General) History Medical History History ICD Code 02/2020 complete heart block/ pace maker hypertension diverticulitis ischemic colitis GI bleed history of anemia and thrombocytopenia- Dr. Poole [place] Surgical History Surgery Date(Month/Year) pace maker 02/2020
== END 2025-05-09 09:42 | disposition home or self-care (01) ==
LOC: HO.HPODS 08:38
PROVIDERS: PCP Family Medicine; Visit Provider Student in an Organized Health Care Education/Training Program
DX: L60.0 Ingrowing nail (principal); L03.032 Cellulitis of left toe; M79.675 Pain in left toe(s); L60.8 Other nail disorders; B35.1 Tinea unguium; L60.3 Nail dystrophy; S81.801A Unspecified open wound, right lower leg, initial encounter
CPT/HCPCS: 11721; 97597; 99213

== ENCOUNTER 2025-05-15 13:29 | Outpatient (AMB) | payer MEDICARE, SELFPAY ==
[2025-05-15 14:43] VITALS: BP 130/70; PULSE 75; BMI 18.1
--- NOTE | 2025-05-15 14:43 | A.OFFVIS_ITS ---
Vital Signs 05/15/25 14:43 Height 5 ft Weight 92 lb 9.506 oz BMI 18.1 BP 130/70 Blood Pressure Location Lt brachial Position Sitting Pulse 75 Pulse Source Pulse Oximeter Intake Visit Reasons: 3 mth w/ [address] chrissy ck Allergies No Known Allergies (No Known Allergies*) Allergy (Verified 04/25/25 09:13) Medication List - Last Reconciled 05/15/25 by Raoul Flores MD apixaban (Eliquis) 5 mg PO BID ascorbic acid (vitamin C) 250 mg PO DAILY carvedilol 12.5 mg PO BID ferrous sulfate 325 mg PO Q OTHER DAY lisinopril 20 mg PO DAILY osimertinib (Tagrisso) 80 mg PO DAILY HPI Comments Details: Allen returns for follow-up regarding her pacemaker and hypertension. In August 2024, it seems that she was diagnosed with a cerebellar infarct and in that setting, lung masses concerning for malignancy. Around that time, it seems that her blood pressure meds were cut back. Since then, blood pressure is actually running on the higher side although it is better today. Patient herself does not really have any cardiac symptoms she feels okay. She was put on chemotherapy for lung cancer. [facility] Medical History (Updated 05/09/25 @ 09:52 by Jes Carrillo DPM) Ulcer of right lower leg Leg wound, right Iron deficiency anemia Pain of left great toe Cellulitis of great toe of left foot Ingrown nail of great toe of left foot Non-small cell lung cancer Basal cell carcinoma Skin lesion of left arm Essential hypertension Normally functioning cardiac pacemaker present Hypertension H/O cardiac pacemaker Surgical History (Updated 04/24/25 @ 15:51 by Josefina Kilpatrick) History of colonoscopy (~02/04/08) History of permanent cardiac pacemaker placement Family History Father No problems noted. Mother No problems noted. Social History Household Members: None Housing: House Do you presently have visiting nurse or other home services: No Alcohol intake: never Patient Tobacco Use Status: Never used Tobacco e-Cigarette/Vaping Use: Never Used Second Hand Smoke Exposure: No service: No Current occupational status: retired Current occupation: right handed. Cognitive needs: No Hearing needs: No Vision needs: Yes (reading glasses) Review of Systems Const Denies weakness ENT Denies dizziness Card Denies chest pain, Denies chest pain with activity, Denies syncope, Denies rapid heart rate, Denies pedal edema, Denies edema, Denies leg edema, Denies lightheadedness, Denies palpitations, Denies dyspnea, Denies dyspnea on exertion and Denies orthopnea Resp Denies cough, Denies dyspnea and Denies dyspnea on exertion GI Denies hematochezia and Denies change in stool character Musc Denies abnormal gait, Denies muscle cramps, Denies muscle weakness, Denies numbness, Denies radiating pain into limb and Denies tingling Neuro Denies abnormal gait, Denies dizziness, Denies syncope, Denies numbness, Denies tingling and Denies weakness Endo Denies palpitations Physical Exam Vital Signs: Last Vital Signs Pulse 75 05/15/25 14:43 BP 130/70 05/15/25 14:43 BMI result Body Mass Index 18.1 Const General: comfortable and no acute distress Orientation/consciousness: patient oriented x3 HEENT Other: Unremarkable Head: Yes normal to inspection Neck Neck: Yes normal visual inspection Chest Chest palpation & inspection: normal inspection of the chest Resp Auscultation: clear to auscultation bilaterally Cardio Palpation: normal PMI Heart sounds: S1 normal heart sound present, S2 normal heart sound present, no gallops, no murmurs and no rubs GI Palpation (GI): Soft to palpation Back/Spine/Pelvis Other: unremarkable Skin General skin exam: no rashes or lesions noted Neuro General: patient oriented x3 Extrem General: Yes normal to inspection Psych Mental Status: mental status grossly normal Office Procedures Cardiac Device Check Cardiac Device Check Details: Pacemaker interrogated today. Dual-chamber device, programmed DDDR. Battery status 3.7-4.2 years. Normal lead parameters. Atrial pacing 35%. Ventricular pacing 93%. PVARP changes made due to PMT. Overall, normal device function. 26155-[place] Cardiac Device Check, pacemaker dual lead Procedure code (CPT) selection complete Assessment & Plan Assessment & Plan (1) Essential hypertension: Code(s): I10 - Essential (primary) hypertension Category: Medical Plan: Her previous dose was carvedilol 25 mg b.i.d. but current doses 12.5 mg b.i.d.. With regard to lisinopril, previously on 40 mg but now she is on 20 mg. It seems that PCP had increased it to 30 mg but she has not made that change. Recommended that she increases it and monitor BP. Previously, leg swelling from amlodipine. (2) Cardiomyopathy: Code(s): I42.9 - Cardiomyopathy, unspecified Category: Medical Plan: In the most recent echocardiogram, LVEF is 60-65%. Prior to that, LVEF of 45- 50% at [facility] with reduced LV strain. Moderate mitral and tricuspid regurgitation. In earlier study from August, LVEF is 55%. Drop in LVEF could be from poorly controlled hypertension. Pacing induced cardiomyopathy is also possible. Some components of valvular disease. Less likely chemotherapy related. (3) Ascending aorta dilatation: Code(s): I77.810 - Thoracic aortic ectasia Category: Medical Plan: In the current echocardiogram, ascending aortic size 4.3 cm. Prior to that, 4.1 cm. (4) Stroke: Code(s): I63.9 - Cerebral infarction, unspecified Category: Medical Plan: Per notes, left cerebellar infarct. It seems that per neurology recommendations she was put on Eliquis- due to concurrent malignancy. (5) Normally functioning cardiac pacemaker present: Code(s): Z95.0 - Presence of cardiac pacemaker Category: Medical Plan: Followed remotely. Medications: Changed From lisinopril 30 mg PO DAILY 90 tabs 0RF To lisinopril 20 mg PO DAILY Coding Level of Care Code Est Pt Level 4 (83940) Complex EM visit Add On G2211 Diagnoses Essential hypertension I10 Cardiomyopathy I42.9 Ascending aorta dilatation I77.810 Stroke I63.9 Normally functioning cardiac pacemaker present Z95.0 CPT Codes Cardiac Device Check - Cardiac Device 2: 98364-TH Cardiac Device Check, pacemaker dual lead ([id number])
--- OUTSIDE RECORDS SUMMARY | 2025-05-15 15:53 | XMS_ITS | Patient Health Record ---
Author Organization [facility] Address [address] [place] [address] Care Team Providers Care Supervisor Quilting Name Role Phone Basil (RETIRED) Zana NAZARIO [...] Problem Status W/U Status Risk Notes Problem [id number] Abdominal pain, unspecified abdominal location (R10.9) Active confirmed Problem 63545416 Diarrhea, unspecified type (R19.7) Active confirmed Problem 12236247 Ischemic colitis (K55.9) Active confirmed Plan Of Treatment No Information Insurance Providers Payer Name Payer Address Payer Phone Subscriber Number Group Number Insured Name Patient Relationship to Insured Coverage Start Date Coverage End Date MEDICARE OF [place] [address] [place] [address] [id number] STONE ANDERSON Self - patient is the insured MEDEX ATTN CLAIMS [address] [place] [address] [id number] STONE ANDERSON Self - patient is the insured Medical (General) History Medical History History ICD Code 02/2020 complete heart block/ pace maker hypertension diverticulitis ischemic colitis GI bleed history of anemia and thrombocytopenia- Dr. Poole [place] Surgical History Surgery Date(Month/Year) pace maker 02/2020
== END 2025-05-15 15:11 | disposition home or self-care (01) ==
LOC: HO.HCS 13:30
PROVIDERS: Visit Provider Internal Medicine
DX: I10 Essential (primary) hypertension (principal); I42.9 Cardiomyopathy, unspecified; I77.810 Thoracic aortic ectasia; I63.9 Cerebral infarction, unspecified; Z95.0 Presence of cardiac pacemaker
CPT/HCPCS: 93280; 99214; G2211

== ENCOUNTER → 2025-05-15 13:29 | Outpatient (BNVA) | payer MEDICARE, SELFPAY | PROVIDERS: Visit Provider Internal Medicine | DX: Z45.018 Encounter for adjustment and management of other part of cardiac pacemaker (principal); I77.810 Thoracic aortic ectasia; I42.9 Cardiomyopathy, unspecified; I10 Essential (primary) hypertension; Z86.73 Personal history of transient ischemic attack (TIA), and cerebral infarction without residual deficits; Z79.01 Long term (current) use of anticoagulants; Z79.899 Other long term (current) drug therapy | CPT/HCPCS: 93280; 99212 ==

== ENCOUNTER → 2025-06-01 23:59 | Outpatient (BNV) | payer MEDICARE, SELFPAY ==
--- NOTE | 2025-06-04 09:17 | MHC.OFFVIS ---
Intake Visit Reasons: Remote device check- [facility] Allergies No Known Allergies (No Known Allergies*) Allergy (Verified 04/25/25 09:13) [facility] Medical History (Updated 05/09/25 @ 09:52 by Jes Carrillo DPM) Ulcer of right lower leg Leg wound, right Iron deficiency anemia Pain of left great toe Cellulitis of great toe of left foot Ingrown nail of great toe of left foot Non-small cell lung cancer Basal cell carcinoma Skin lesion of left arm Essential hypertension Normally functioning cardiac pacemaker present Hypertension H/O cardiac pacemaker Surgical History (Updated 04/24/25 @ 15:51 by Josefina Kilpatrick) History of colonoscopy (~02/04/08) History of permanent cardiac pacemaker placement Family History Father No problems noted. Mother No problems noted. Social History Household Members: None Housing: House Do you presently have visiting nurse or other home services: No Alcohol intake: never Patient Tobacco Use Status: Never used Tobacco e-Cigarette/Vaping Use: Never Used Second Hand Smoke Exposure: No service: No Current occupational status: retired Current occupation: right handed. Cognitive needs: No Hearing needs: No Vision needs: Yes (reading glasses) Office Procedures Cardiac Device Check Cardiac Device Check Details: Date of service- 06/01/2025 ; Battery life >3 years; normal lead parameters; AP 29%; TRAINING AND DEVELOPMENT COORDINATOR 99%; no significant arrhythmias. Overall normal device function. 86979-Exiart Cardiac Device Interrogation, pacemaker Procedure code (CPT) selection complete Assessment & Plan Assessment & Plan (1) Normally functioning cardiac pacemaker present: Code(s): Z95.0 - Presence of cardiac pacemaker Category: Medical (2) Heart block: Code(s): I45.9 - Conduction disorder, unspecified Category: Medical Plan x Coding Level of Care Code Procedure Only Diagnoses Normally functioning cardiac pacemaker present Z95.0 Heart block I45.9 CPT Codes Cardiac Device Check - Cardiac Device 12: 06077-Uzonpr Cardiac Device Interrogation, pacemaker ([id number])
== END ==
PROVIDERS: PCP Physician Assistant; Visit Provider Internal Medicine
DX: I45.9 Conduction disorder, unspecified (principal); Z95.0 Presence of cardiac pacemaker
CPT/HCPCS: 93294